=== PATIENT | male | born 1940 | race Caucasian/White ===

== ENCOUNTER 2023-08-29 19:14 | Inpatient (IN) | payer OTHER, SELFPAY ==
[2023-08-29] VITALS (11 sets, daily range): BP systolic 116–165; BP diastolic 49–147; BMI 29.2
[2023-08-29 14:17] LABS: COVID-19 Antigen Negative (Negative)
--- NOTE | 2023-08-29 15:23 | ED.GENMED ---
History of Present Illness
General
Chief Complaint: Weakness
Source: spouse and family
Exam Limitations: none
Time Seen by Provider: 08/29/23 15:03
Nursing documentation reviewed up to this point in time: agreed with
Travel History
Have you had any contact with someone who has COVID-19?: No
Do you have any symptoms of coronavirus? Fever > 100 degrees, chills, cough, shortness of breath, sore throat, loss of taste or smell, muscle aches, or headache?: No
History of Present Illness
History of Present Illness:
Patient to ED with increasing weakness, fluid retention, decreased urine output, SOB. According to family he had a shoulder replacement surgery on 07/09, He was sent to rehab where he had a fall and hit his head. Family states the next day when
they visited he was slurring his words. [facility] and [facility] with [facility]. He was eventually transferred to [place] and then home. Family states he continues to weaken and retain fluid. reports little to no urine output. Deny fever/chills, recent
illness. No n/v/d. Poor appetite. Pulse ox 88%RA on arrival. Placed on 2L NC and pulse ox improved to 97%.
Past History
Past History
ED Past Medical History: CAD, HTN, Hypercholesterolemia and NIDDM
ED Past Surgical History: Cardiac (Loop recorder.) and Orthopedic (Shoulder surgery 07/09)
Social History
Tobacco: Former smoker
Personal:
Living: with family
Family History
Family History: Other (Noncontributory)
Review of Systems
Review of Systems
Allergies reviewed?: Yes
All Other Systems: ROS reviewed and negative except as documented in HPI and ROS
Constitutional: Reports fatigue
EENT: Reports no symptoms
Respiratory: Reports trouble breathing
Cardiac: Reports no symptoms
ABD/GI: Reports no symptoms
: Reports other (decreased urine output)
Musculoskeletal: Reports edema (+3 BLE)
Skin: Reports no symptoms
Neurological: Reports weakness
Psychiatric: Reports no symptoms
Phy Exam
General Physical Exam
General Presentation: mild distress
General age: appears stated age
General Skin: warm and dry
General Habitus: normal
General Mental: alert
Cardiovascular Exam
Cardiovascular Exam: regular rate/rhythm
Pulmonary Exam
Pulmonary Exam: decreased breath sounds
Oxygen Status: oxygen 2 liters via NC
Breath Sounds: Crackles: left lower and right lower
Gastrointestinal Exam
Gastrointestinal Exam: normal bowel sounds, non tender, soft and no organomegaly
Musculoskeletal Exam
Musculoskeletal Exam: full ROM and neuro vasc intact
Skin Exam
Skin Exam: normal color, warm/dry and no rash
Psychiatric Exam
Psychiatric Exam: normal mood/affect
Scores
Heart Failure Risk
Heart Failure Risk Score: Yes
History of Stroke or TIA: Yes
History of intubation for respiratory distress: No
Heart rate on ED arrival >/= 110: No
SaO2 <90% on arrival on room air: Yes
HR >/=110 during 3min walk test (or too ill to perform test): Yes
ECG has acute ischemic changes: Yes
Urea >/=12mmol/L (BUN 33.6mg/dL): No
Serum CO2>/=35mmol/L: No
Troponin I or T elevated to [place] Level (0.4mg/dL): No
NT-proBNP >/=5,000ng/L (5,000pg/ml): Yes
HF Risk Score: 7
Admission Status: VERY HIGH RISK 69.8% Consider admission to hospital
Course
Orders/Labs/Results
Orders:
Orders
08/29/23 13:23
Electrocardiogram (*1) Urgent
Reason for Study: Fatigue / Weakness
EKG- Treatment ONCE
08/29/23 13:42
COVID-19 Antigen Urgent
Source: Nasal Swab
Influenza A+B Rapid Molecular Urgent
TA Source: Nasal Swab
Specimen Description:
08/29/23 Dinner
1800 calorie (15 carb) Diabetic
Diabetic Diet: Sodium, 2 Gram
08/29/23 15:18
Bladder Scan- Treatment ONCE
08/29/23 15:22
CR Chest - 2 Views Urgent
Comment:
Reason For Exam: SOB
08/29/23 15:58
Complete Blood Count/With Diff Urgent
Comprehensive Metabolic Panel Urgent
NT-proBNP Urgent
Troponin I Urgent
08/29/23 18:16
Furosemide [Lasix] 60 mg IV NOW STA
08/29/23 18:26
Admit/Transfer Patient As Directed
Co-Sign Provider:
Level of Care: Inpatient admission
Assign to:: Telemetry
Physician / Group: Scot Gifford
Diagnosis: HF exacerbation
Reason for Telemetry: Arrhythmia
Date to Stop Telemetry: 09/01/23
Time to Stop Telemetry: 11:00
Reason for Hospitalization: HF exacerbation
Expected length of stay greater than two midnights?: Yes
ELOS- Estimated Length of Stay in days: 2
I certify the patient meets the requirements for IP care: Yes
08/29/23 18:27
Code Status As Directed
Resuscitation Status: Full Code
08/29/23 19:04
Urinalysis Reflex To Culture Urgent
Date Specimen was Collected: 08/29/23
Time Specimen was Collected: 19:03
08/29/23 19:26
Acetaminophen [Tylenol] 650 mg PO Q4HPRN PRN
Dextrose 50%-Water [Dextrose 50% Syringe] 12.5 grams IV [id number] PRN
Glucagon [GlucaGen] 1 mg IM PRN PRN
08/29/23 19:26
Consult Nephrology [NEPHROLOGY CONSULT] Routine
Consulting Provider: Melissa Rogel
Was physician already notified: Yes
Reason for consult: CKD, HF
UA Reflex to Culture [Urinalysis Reflex To Culture] Routine
Activity As Directed
Activity Level: With Assistance
Bedside Glucose Monitoring As Directed
Frequency: AC&HS
Comment: Change to q6h if pt on TPN, tube feeding or not eating
Bladder Scan As Directed
Follow Bladder Retention/Intermittent Cath Algorithm?: Yes
PRN if no void in __ hours: 6
Frequency: Per Retention Algorithm
If Bladder Scan Result >: 400
then:: Straight cath
Straight Cath As Directed
Frequency: Per Retention Algorithm
Additional Instructions: straight cath as needed per acute urinary retention algorithm for 24 hrs
Additional Instructions: for bladder scan greater than 400 mL
Vital Signs As Directed
Frequency: Per unit guidelines
Ot Eval And Treat Routine
Pt Eval And Treat Routine
Activity Level: With Assistance
08/29/23 20:00
Docusate Sodium [Colace] 100 mg PO BID
Rivaroxaban [Xarelto] 2.5 mg PO BID
08/29/23 22:00
Famotidine [Pepcid] 20 mg PO HS
Mexiletine [Mexitil] 150 mg PO TID
insulin glargine [Lantus Solostar U-100 Insulin] 10 unit SC HS
08/30/23 06:00
Basic Metabolic Panel IN AM
Complete Blood Count/No Diff IN AM
Glycohemoglobin (HgbA1c) IN AM
08/30/23 07:00
Levothyroxine [Synthroid] 200 mcg PO DAILY AT 0700
Levothyroxine [Synthroid] 50 mcg PO DAILY@0700
08/30/23 07:30
Insulin Aspart Corrective Low [Novolog Flexpen-Low Resistance] See Protocol SC AC
08/30/23 08:00
Ascorbic Acid [Vitamin C] 500 mg PO DAILY
Aspirin Low Dose EC [Aspir Low (Enteric Coated)] 81 mg PO DAILY
Atorvastatin [Lipitor] 40 mg PO DAILY
Bisoprolol Fumarate [Zebeta] 7.5 mg PO DAILY
Ergocalciferol [Drisdol (Vitamin D2)] 50,000 units PO FR
FA/Cyanocobalamin/Pyridoxine [Foltx] 1 tablet PO DAILY
Finasteride [Proscar] 5 mg PO DAILY
Furosemide [Lasix] 40 mg IV DAILY
Multivitamin [Theragran] 1 tablet PO DAILY
Tamsulosin [Flomax] 0.8 mg PO DAILY
09/01/23 11:00
DC Protocol for Telemetry ONCE
Abnormal Lab Results
08/29/23
15:58
RBC 2.95 L 10^6/uL
(4.70-6.10)
Hgb 9.5 L g/dL
(13.0-18.0)
Hct 31.5 L %
(39.0-52.0)
MCV 106.8 H fL
(80.0-94.0)
MCH 32.2 H pg
(27.0-31.0)
MCHC 30.2 L g/dL
(33.0-37.0)
RDW 15.9 H %
(11.5-14.5)
Absolute Lymphs (auto) 0.5 L 10^3/uL
(1.2-3.4)
Neutrophils % 81.6 H %
(42.2-75.2)
Lymphocytes % 9.2 L %
(20.5-51.1)
BUN 24 H mg/dl
(9-20)
Creatinine 1.6 H mg/dL
(0.7-1.3)
Glucose 183 H mg/dl
(70-99)
Alkaline Phosphatase 145 H U/L
(38-126)
Troponin I 0.039 H* ng/ml
Total Protein 5.8 L g/dl
(6.3-8.2)
Albumin 3.0 L g/dl
(3.5-5.0)
08/29/23 15:58
08/29/23 15:58
Vital Signs
Initial and Last Documented VS:
Initial Vital Signs
Temp Pulse Resp BP Pulse Ox
97.4 F 100 16 139/65 98
08/29/23 13:18 08/29/23 13:18 08/29/23 13:18 08/29/23 13:18 08/29/23 13:18
Last Documented Vital Signs
Temp Pulse Resp BP Pulse Ox
97.4 F 90 16 118/53 89
08/29/23 13:18 08/29/23 20:30 08/29/23 13:18 08/29/23 20:00 08/29/23 20:15
*Radiology
Radiology exam reviewed: radiology read reviewed
*Pulse Oximetry
Patient hypoxic: yes
*Critical Care Note
Total Time (30-74mins, 75-104mins- exclusive of procedures): Not Applicable
ED Attending Note
-
Portions of this chart may have been created with voice recognition software.� Occasional wrong word or��sound alike� substitutions may have occurred due to the inherent limitations of voice recognition software.
Discharge Plan
Departure
Patient Disposition: Admit
Date of Disposition: 08/29/23
Time of Disposition: 18:15
Presentation/result/management discussed w/ accepting MD/DO: Hospitalist
Condition: Fair
Covid-19: Not Applicable
Discharge Problem:
CHF (congestive heart failure)
Interventions
Interventions:
*Risk Screen - Suicide Last Done: 08/29/23 15:34
*General Assessment Last Done: 08/29/23 15:34
*Neglect/Abuse Screening Last Done: 08/29/23 15:34
ED- Fall Risk Assessment Last Done: 08/29/23 15:34
*ED COVID-19 Vaccine History Last Done: 08/29/23 13:18
ED- Cardiac Assessment Last Done: 08/29/23 15:34
ED- Neurological Assessment Last Done: 08/29/23 15:34
ED- Pulmonary Assessment Last Done: 08/29/23 15:34
[2023-08-29 16:16] LABS: % Basophils 0.3 % (0-2); % Eosinophils 0.3 % (0-6); % Immature Granulocytes 0.5 % (0-0.5); % Lymphocytes 9.2 % (20.5-51.1); % Monocytes 8.1 % (1.7-9.3); % Neutrophils 81.6 % (42.2-75.2); Absolute Lymphocytes 0.5 10^3/uL (1.2-3.4); Absolute Monocytes 0.5 10^3/uL (0.1-0.6); Absolute Neutrophils 4.8 10^3/uL (1.4-6.5); Hematocrit 31.5 % (39.0-52.0); Hemoglobin 9.5 g/dL (13.0-18.0); Mean Corp Hgb Conc. 30.2 g/dL (33.0-37.0); Mean Corpuscular Hgb 32.2 pg (27.0-31.0); Mean Corpuscular Volume 106.8 fL (80.0-94.0); Nucleated Red Blood Cells % 0 % (-); Platelet Count 194 10^3/uL (130-400); Red Blood Cell Count 2.95 10^6/uL (4.70-6.10); Red Cell Dist. Width 15.9 % (11.5-14.5); White Blood Cell Count 5.9 10^3/uL (4.8-10.8)
[2023-08-29 16:32] LABS: ALT (SGPT) 39 U/L (0-50); AST (SGOT) 38 U/L (17-59); Alkaline Phosphatase 145 U/L (38-126); Blood Urea Nitrogen 24 mg/dl (9-20); Calcium 8.4 mg/dl (8.4-10.2); Carbon Dioxide 28 mmol/L (22-30); Chloride 102 mmol/L (98-107); Glucose 183 mg/dl (70-99); Potassium 3.9 mmol/L (3.5-5.1); Sodium 137 mmol/L (135-145); Total Bilirubin 0.9 mg/dl (0.2-1.3); Total Protein 5.8 g/dl (6.3-8.2); eGFR 42.22
[2023-08-29 16:44] LABS: NT-proBNP 12500 pg/ml; Troponin I 0.039 ng/ml
--- NOTE | 2023-08-29 18:49 | HPS.HSE ---
Family Physician
-
Family Physician: Fernando Wiley
Chief Complaint
-
Shortness of breath
History of Present Illness
Patient is 83-year-old male with past medical history of HFmrEF, insulin-dependent diabetes mellitus, paroxysmal A-fib, history of left shoulder replacement, recent mechanical fall at rehab and subacute CVA, hyperlipidemia, BPH, hypothyroidism was
brought to ER for having new onset of shortness of breath and volume retention. Patient had unfortunately a complex medical course in the last 2 months. Patient had left [facility] in July 05 and was discharged to [facility]. Patient had
mechanical fall causing head injury requiring transferred to [facility]. Found to have small CVA and was discharged back to rehab and eventually to home. Patient been having persistent difficulty with ambulation. Yesterday patient ' almost
fell ' and was caught by family. Family noticed patient is getting short of breath and start retaining fluid. Have both lower extremity swelling. [facility] [place] and has not been on any diuretics due to concern of medication ' too
strong' for kidneys. Patient does have chronic kidney disease, although patient has not been seen by any reinforcement maker. Patient did not have any significant chest pain/palpitation/productive cough/fever episode.
Patient have episodic difficulty voiding. Does not require any straight catheterization.
Medical History
Past Medical History
Past Medical History: Reports Other
Additional Past Medical History:
HFmrEF, insulin-dependent diabetes mellitus, paroxysmal A-fib, history of left shoulder replacement, recent mechanical fall at rehab and subacute CVA, hyperlipidemia, BPH, hypothyroidism
Past Surgical History: Reports Other
Social History
Tobacco: Non-smoker
Alcohol: None
Drug: None
Personal:
Living: With Family
Family History
Family History: Not pertinent
Allergies / Home Medications
Allergies reflects when Allergies were last updated in [employer].
Home Medications with original date entered in [employer]
Allergy/Medication List:
Allergies
Allergy/AdvReac Type Severity Reaction Status Date / Time
SYDNI Inhibitors Allergy Unknown Verified 08/29/23 13:21
Home Medications
ascorbic acid (vitamin C) 500 mg tablet (Vitamin C) 500 mg PO DAILY supplement #30 tabs 08/09/23
aspirin 81 mg tablet,delayed release 81 mg PO DAILY Blood clot prevention/tx #30 tabs 08/09/23
atorvastatin 40 mg tablet 40 mg PO DAILY High cholesterol #30 tabs 08/09/23
bisoprolol fumarate 5 mg tablet 7.5 mg PO DAILY Blood pressure #30 tabs 08/09/23
docusate sodium 100 mg capsule 100 mg PO BID Constipation #60 caps 08/09/23
famotidine 20 mg tablet 20 mg PO HS gerd #30 tabs 08/09/23
finasteride 5 mg tablet 5 mg PO DAILY bph #30 tabs 08/09/23
folic acid-vit B6-vit B12 2.5 mg-25 mg-2 mg tablet (WesTab Max) 1 tab PO DAILY supplement #30 tabs 08/09/23
levothyroxine 200 mcg tablet 200 mcg PO DAILY AT 0700 hypothyroid #30 tabs 08/09/23
levothyroxine 50 mcg tablet 50 mcg PO DAILY@0700 #30 tabs 08/09/23
mexiletine 150 mg capsule 150 mg PO TID supplement #90 caps 08/09/23
multivitamin with folic acid 400 mcg tablet (Tab-A-Laurie) 1 tab PO DAILY supplement #30 tabs 08/09/23
rivaroxaban 2.5 mg tablet (Xarelto) 2.5 mg PO BID #60 tabs 08/09/23
tamsulosin 0.4 mg capsule 0.8 mg PO DAILY bph #30 caps 08/09/23
clotrimazole 1 % topical cream (Athlete's Foot (clotrimazole)) 1 applic topical BID groin/bed sore 08/29/23
ergocalciferol (vitamin D2) 1,250 mcg (50,000 unit) capsule 1,250 mcg PO FR supplement 08/29/23
insulin glargine 100 unit/mL (3 mL) subcutaneous pen (Lantus Solostar U-100 Insulin) 8 - 10 unit SC HS 08/29/23
Review of Systems
-
A 12 point ROS was completed and negative except as noted: Yes
Physical Exam
Vital Signs
Vital Signs
Temp Pulse Resp BP Pulse Ox
97.4 F 77 16 116/60 90
08/29/23 13:18 08/29/23 17:45 08/29/23 13:18 08/29/23 17:00 08/29/23 16:45
Physical Exam
General: Comfortable and Conversant
HEENT: Atraumatic; No Oxygen
Respiratory: Crackles (Both lung oliveira) and Non Labored Respirations
Cardiac: S1/S2 and Regular Rhythm; No Tachycardia
GI: Soft, Non Tender and Non Distended
Musculoskeletal: No Clubbing, No Cyanosis, Edema, Left Lower Extremity and Edema, Right Lower Extremity
Skin: Warm and Dry; No Rash
Neuro: Awake, Alert, Oriented and Nonfocal/grossly intact
Psych: Calm
Laboratory Results
-
08/29/23 15:58
08/29/23 15:58
Laboratory Results
Total Bilirubin 0.9 mg/dl (0.2-1.3) 08/29/23 15:58
AST 38 U/L (17-59) 08/29/23 15:58
ALT 39 U/L (0-50) 08/29/23 15:58
Alkaline Phosphatase 145 U/L (38-126) H 08/29/23 15:58
Troponin I 0.039 ng/ml H* 08/29/23 15:58
Data Reviewed
-
Diagnostic Radiology: Image Personally Visualized and interpreted, Discussed with Patient and Discussed with Family
Lab Data: Labs Reviewed by me, Discussed with Patient and Discussed with Family
Impression/Plan
-
1. Acute on Chronic HF mr EF
-Last echocardiogram in system showing EF of 41% in Jan 25
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
-Elevated proBNP ~ 12k
-Chest x-ray showing congestion/pulmonary edema, official read pending
-Crackles on lung examination
-Got IV Lasix 60 mg in ER, continue on 40 mg daily
-Follow weight and creatinine
2. insulin-dependent diabetes mellitus
-Maintain on Lantus and insulin sliding scale
3. paroxysmal A-fib
History of ventricular arrhythmia?
-Patient on mexiletine therapy continue
-Also on Xarelto 2.5 mg twice daily -presumably DVT prophylaxis dose, continue
-Patient high risk for fall and bleed risk
4. BPH
-Maintain on finasteride and tamsulosin
-Bladder scan and straight cath protocol ordered
5. CKDIIIB
-Baseline creatinine anywhere between 1.5-1.8
-Have not seen previous nephrology in the past
6. Troponin elevation
-minimal, repeat check ordered
history of left shoulder replacement,
recent mechanical fall at rehab
subacute CVA
hyperlipidemia
hypothyroidism
DVT PPX - xarelto
Full code
Total time spent : 80 mins
I personally saw and examined the patient.
I have reviewed all diagnostic interpretations and treatment plans as written.
Time includes patient management by me, time spent at the patients bedside, time to review lab and imaging results, discussing patient care, documentation in the medical record, and time spent with the family or caregiver and discussing care plan
with RN/Consultants.
[2023-08-29] MEDS: LASIX 60 MG IV (18:51)
[2023-08-29 19:12] LABS: Urine Albumin Trace (Neg - Trace); Urine Bilirubin Negative (Negative); Urine Character Clear (Clear); Urine Color Yellow; Urine Glucose Negative (Negative); Urine Ketone Negative (Negative); Urine Leukocyte Negative (Negative); Urine Nitrite Negative (Negative); Urine Occult Blood Negative (Negative); Urine Urobilinogen Negative (Neg - 1+)
[2023-08-29] MEDS: LANTUS 0.100000000000000006 UNITS SC (22:30)
[2023-08-29] MEDS: PEPCID 20 MG PO (22:30)
[2023-08-29] MEDS: XARELTO 2.5 MG PO (22:31)
[2023-08-29] MEDS: MEXITIL 150 MG PO (22:31)
[2023-08-29] MEDS: COLACE 100 MG PO (22:31)
[2023-08-29 22:44] LABS: Glucose - Point of Care 204 mg/dl (70-99)
[2023-08-30] VITALS (12 sets, daily range): BP systolic 92–156; BP diastolic 43–81; BMI 28.7; BMI 32.1
[2023-08-30 04:29] LABS: Hematocrit 28.7 % (39.0-52.0); Hemoglobin 9.1 g/dL (13.0-18.0); Mean Corp Hgb Conc. 31.7 g/dL (33.0-37.0); Mean Corpuscular Hgb 32.2 pg (27.0-31.0); Mean Corpuscular Volume 101.4 fL (80.0-94.0); Mean Platelet Volume 9.8 fL (7.4-10.4); Platelet Count 189 10^3/uL (130-400); Red Blood Cell Count 2.83 10^6/uL (4.70-6.10); Red Cell Dist. Width 15.8 % (11.5-14.5); White Blood Cell Count 5.2 10^3/uL (4.8-10.8)
[2023-08-30 04:59] LABS: Blood Urea Nitrogen 22 mg/dl (9-20); Calcium 7.6 mg/dl (8.4-10.2); Carbon Dioxide 28 mmol/L (22-30); Chloride 102 mmol/L (98-107); Estimated Creatinine Clearance 38 ml/min; Glucose 161 mg/dl (70-99); Potassium 3.5 mmol/L (3.5-5.1); Sodium 139 mmol/L (135-145); eGFR 49.56
[2023-08-30] MEDS: SYNTHROID 50 MCG PO (06:29)
[2023-08-30] MEDS: SYNTHROID 200 MCG PO (06:29)
[2023-08-30 07:41] LABS: Glucose - Point of Care 167 mg/dl (70-99)
[2023-08-30] MEDS: PROSCAR 5 MG PO (07:43)
[2023-08-30] MEDS: FLOMAX 0.800000000000000044 MG PO (07:43)
[2023-08-30] MEDS: LASIX 40 MG IV (07:43)
[2023-08-30] MEDS: THERAGRAN 1 TABLET PO (07:43)
[2023-08-30] MEDS: ASPIR LOW (ENTERIC COATED) 81 MG PO (07:43)
[2023-08-30] MEDS: DRISDOL (VITAMIN D2) 50000 UNITS PO (07:44)
[2023-08-30] MEDS: FOLTX 1 TABLET PO (07:44)
[2023-08-30] MEDS: COLACE 100 MG PO ×2 (07:44→20:31)
[2023-08-30] MEDS: NOVOLOG FLEXPEN-LOW RESISTANCE 1 UNITS SC ×3 (07:44→16:50)
[2023-08-30] MEDS: XARELTO 2.5 MG PO ×2 (07:44→20:31)
[2023-08-30] MEDS: VITAMIN C 500 MG PO (07:45)
[2023-08-30] MEDS: ZEBETA 7.5 MG PO (07:45)
--- NOTE | 2023-08-30 08:38 | W.PN.HOSP.TC ---
Today's Communication/Plan
-
Continue diuresis
Watch creatinine
Follow daily weights
Iron studies
Unclear why patient is only on Xarelto 2.5 twice daily
Need to get records from outpatient merry go round attendant
Consult cards
reepeat trop
Assessment / Plan
Assessment / Plan
83 y/o male with shortness of breath. Complex medical course in the last 2 months. Patient had a shoulder replacement surgery on 07/09/2023 and was sent to rehab where he had a fall and hit his head. He was sent to [facility] where he was
diagnosed with a CVA and transferred to [facility]. Eventually he was discharged home. He was feeling weak and decreased urine output and shortness of breath therefore brought in to [facility].
Patient is not a good historian
On examination not in distress
On oxygen
Cardiovascular system S1-S2 regular
Chest decreased breath sounds at bases
Few rales
Soft nontender
Bilateral pedal edema noted
# Acute on chronic heart failure with reduced ejection fraction
Echo January 2023 with EF 41%
Patient not on any Lasix as outpatient
Primary merry go round attendant is at [place]
Elevated proBNP noted
Continue IV Lasix
Daily weights/intake output charting
# Elevated troponin
#ASCVD-ASA,Statin
History of cardiac stents history of lower extremity
# Paroxysmal atrial fibrillation
On Xarelto as outpatient
Dose of Xarelto was only 2.5 twice daily which is a DVT prophylaxis dose.
Not sure why he is not on a treatment dose
On bisoprolol 7.5 mg daily
Mexiletine
#Long QTC
#Insulin-dependent diabetes
On Lantus and sliding scale coverage
Lantus 8 to 10 units at nighttime at home
# Enlarged prostate
Finasteride and tamsulosin
# CKD stage III
Has not seen nephrology in the past
# History of left reverse shoulder replacement July 2023
# CVA-aspirin and statin
Loop recorder implanted on July 16
# Hyperlipidemia/Atherosclerosis-statin
# Hypothyroidism-Synthroid 250 mcg daily
# Anemia-Iron studies
# Fall in Jul 2023
# History of bladder cancer
# History of peripheral vascular disease
Per previous notes carotid ultrasound August 2022 minimal right carotid stenosis and moderate left carotid stenosis.-This has been monitored for years.
Right carotid endarterectomy.
History of lower extremity stents-Details unclear
# Ex-smoker
# DVT prophylaxis-Xarelto
# Full code
Discussed with nursing at bedside
Called patient's and left a message, son has same number listed.
Anticipated Discharge: > 48 hours
Subjective/Interval History
-
Date of Service: August 30, 2023
Objective Data
-
Labs:
Laboratory Results
08/30/23
04:17
WBC 5.2
Hgb 9.1 L
Hct 28.7 L
Plt Count 189
Sodium 139
Potassium 3.5
Chloride 102
Carbon Dioxide 28
BUN 22 H
Creatinine 1.4 H
Glucose 161 H
Calcium 7.6 L
Vital Signs:
Vital Signs
Temp Pulse Resp BP Pulse Ox
97.7 F 80 16 128/68 98
08/30/23 07:57 08/30/23 07:45 08/29/23 13:18 08/30/23 07:45 08/30/23 07:45
I&O
08/29/23 08/30/23 08/31/23
06:59 06:59 06:59
Output Total 1849
Balance -185 / -1849
[2023-08-30] MEDS: MEXITIL 150 MG PO ×3 (09:58→21:55)
[2023-08-30] MEDS: LIPITOR 40 MG PO (09:58)
--- NOTE | 2023-08-30 10:25 | PTOTSP ---
Speech Language Pathology
Pt seen for clinical bedside swallow evaluation. Dentures present at bedside, but pt stated they will not fit without denture adhesive, which was not in room. When pt discharged from speech at [place] on 08/08, he was on regular solids/thin liquids.
RN spoke with on phone who reported that she can bring in denture adhesive, but he doesn't need the dentures since he can only have 'mushy' things. Unsure where this recommendation came from.
P.O. trials of puree and thin liquids provided. Adequate oral phase with puree. Pt consistently taking consecutive sips of thin liquids. Cough noted x2 with consecutive sips. Verbal cueing provided for single sips, which he tolerated without
overt signs of aspiration.
Recommend:
(1) IDDSI Level 4 (Puree) with thin liquids given report and no denture adhesive currently available
(2) Aspiration precautions: sit upright, slow rate, single sips only (will require verbal cueing at least intermittently), take break if SOB
(3) Meds whole in puree
(4) SHIFT NURSE MANAGER to continue to follow
[2023-08-30 10:29] LABS: Vitamin D, 25-OH*** 30.6 ng/mL (30-80)
[2023-08-30 10:32] LABS: Iron 41 ug/dl (49-181)
[2023-08-30 10:41] LABS: Percent Saturation 16 % (20-50); Total Iron Binding Capacity 245 ug/dl (261-462)
[2023-08-30 10:47] LABS: Ferritin 72.8 ng/ml (17.9-464.0)
--- NOTE | 2023-08-30 11:06 | CON.CAR ---
Addendum entered and electronically signed by Len Goncalves MD 08/30/23 16:03:
I saw and examined the patient.
The DIRECT CARE WORKER or PA's note was reviewed and I agree with the note.
Comment: General: Awake and possibly confused
Neck: Supple, no JVD, HJR, carotids +2 B/L, no bruits bilaterally.
Heart: Non displaced PMI, RRR, no murmurs, No S3, S4, no rubs.
Lungs: Scattered rhonchi
Abdomen: Normal bowel sounds, soft, non-tender, non-distended.
Extremities: No clubbing, cyanosis or edema bilaterally.
Neuro: Awake and possibly confused
Messi with a history of chronic systolic CHF, CAD, PVD, renal artery stenosis, carotid stenosis, hypertension, diabetes, renal sufficiency. He presented with worsening dyspnea on exertion. He had a recent fall subacute CVA with statin loss. He had
a Linq monitor placed at that time. His care is done at [facility]. Cardiology was consulted for acute systolic CHF.
Treatment IV Lasix and assess response. Try to get records from [facility].
Original Note:
Consultation
Consultation Request
Date/Time Consultation Requested: 08/30/2023 at 0900
Date/Time Consultation Performed: 08/30/2023 at 1015
Requesting Provider: Dr. Moses
Performing Provider: Dr. Goncalves
Reason for Consultation: CHF
Medical History
-
History of Present Illness:
HPI: Garret is an 83-year-old male with past medical history of chronic HFrEF, CAD, PVD, renal artery stenosis, carotid stenosis, hypertension, hyperlipidemia, type 2 diabetes, CKD, hypothyroidism, and bladder cancer who presented to ER for
evaluation of worsening shortness of breath. He had a recent fall and subacute CVA and had a rehab stay at [facility] earlier this month. He has since returned home and has been having difficulty with ambulation. He also has had weight gain and
increased edema. Family was concerned that he was retaining fluid and brought him in for evaluation. On arrival to the ER, he was hypoxic and was placed on supplemental oxygen. He was found to have evidence of acute heart failure on chest x-ray
with severe pulmonary edema and small bilateral pleural effusions. ProBNP elevated at 12,500. He was started on IV Lasix and cardiology was consulted for evaluation. He is resting comfortably in bed this morning with no acute complaints.
PMH:
CVA
Paroxysmal atrial fibrillation
Chronic HFrEF
CAD
s/p Roto KAREN LCX (4 x12 mm Promus) & LAD KAREN 06/2014 (3.5 x 12 mm Promus)
s/p LAD Roto KAREN� (3.5 x 15 mm [place] KAREN) 01/20
Ventricular bigeminy/PAT maintained on mexiletine
PVD
s/p iliac prosper stents 01/2007
s/p R&L EIA stents 08/2021
Renal artery stenosis
�s/p right renal artery stent 01/2007
Carotid stenosis
s/p Rt CEA 08/2017
Hypertension
Hyperlipidemia
Type 2 diabetes
Chronic renal insufficiency
Cataract extraction
Hypothyroidism
Bladder cancer
Cystoscopy, transurethral resection of bladder tumor, placement of 6 x 24 double-J stent, retrograde pyelogram 09/2018
Past Medical History
Past Medical History: Other (In HPI)
Past Surgical History: Cardiac (Roto KAREN LCX & LAD KAREN 06/2014, LAD Roto KAREN 01/20), Urological (Cystoscopy, transurethral resection of bladder tumor, placement of 6 x 24 double-J stent, retrograde pyelogram 09/2018) and Other (PVD w/ iliac prosper stents
01/2007, R&L EIA stents 08/2021, renal artery stent 01/2007, Rt CEA 08/2017, cataract surgery)
Social History
Tobacco: Former Smoker
Alcohol: Occasional
Drug: None
Employment: Retired
Family History
Family History: CAD
Allergies / Home Medications
Allergy/AdvReac Type Severity Reaction Status Date / Time
SYDNI Inhibitors Allergy Unknown Verified 08/29/23 13:21
Medication Instructions Recorded Confirmed Type
ascorbic acid (vitamin C) 500 mg 500 mg PO DAILY supplement #30 tabs 08/09/23 08/29/23 Rx
tablet (Vitamin C)
aspirin 81 mg tablet,delayed 81 mg PO DAILY Blood clot 08/09/23 08/29/23 Rx
release prevention/tx #30 tabs
atorvastatin 40 mg tablet 40 mg PO DAILY High cholesterol 08/09/23 08/29/23 Rx
#30 tabs
bisoprolol fumarate 5 mg tablet 7.5 mg PO DAILY Blood pressure #30 08/09/23 08/29/23 Rx
tabs
docusate sodium 100 mg capsule 100 mg PO BID Constipation #60 caps 08/09/23 08/29/23 Rx
famotidine 20 mg tablet 20 mg PO HS gerd #30 tabs 08/09/23 08/29/23 Rx
finasteride 5 mg tablet 5 mg PO DAILY bph #30 tabs 08/09/23 08/29/23 Rx
folic acid-vit B6-vit B12 2.5 1 tab PO DAILY supplement #30 tabs 08/09/23 08/29/23 Rx
mg-25 mg-2 mg tablet (WesTab Max)
levothyroxine 200 mcg tablet 200 mcg PO DAILY AT 0700 08/09/23 08/29/23 Rx
hypothyroid #30 tabs
levothyroxine 50 mcg tablet 50 mcg PO DAILY@0700 #30 tabs 08/09/23 08/29/23 Rx
mexiletine 150 mg capsule 150 mg PO TID supplement #90 caps 08/09/23 08/29/23 Rx
multivitamin with folic acid 400 1 tab PO DAILY supplement #30 tabs 08/09/23 08/29/23 Rx
mcg tablet (Tab-A-Laurie)
rivaroxaban 2.5 mg tablet (Xarelto) 2.5 mg PO BID #60 tabs 08/09/23 08/29/23 Rx
tamsulosin 0.4 mg capsule 0.8 mg PO DAILY bph #30 caps 08/09/23 08/29/23 Rx
clotrimazole 1 % topical cream 1 applic topical BID groin/bed sore 08/29/23 08/29/23 History
(Athlete's Foot (clotrimazole))
ergocalciferol (vitamin D2) 1,250 1,250 mcg PO FR supplement 08/29/23 08/29/23 History
mcg (50,000 unit) capsule
insulin glargine 100 unit/mL (3 8 - 10 unit SC HS Diabetes 08/29/23 08/29/23 History
mL) subcutaneous pen (Lantus
Solostar U-100 Insulin)
Review of Systems
-
History Source: Patient
All other systems: Negative unless noted
Physical Exam
Vital Signs
Temp Pulse Resp BP Pulse Ox
97.7 F 80 16 128/68 98
08/30/23 07:57 08/30/23 07:45 08/29/23 13:18 08/30/23 07:45 08/30/23 07:45
Lab Results
08/30/23 04:17
08/30/23 04:17
Troponin I Cancelled 08/30/23 10:05
Oqs-I-Qeljmxuqlrk Pept 28603 pg/ml 08/29/23 15:58
Physical Exam
General: Well Developed, Well Nourished and No Apparent Distress
HEENT: Normocephalic, Anicteric and Moist Mucous Membranes
Respiratory: Crackles and Non Labored Respirations
Cardiac: S1/S2 and Regular Rhythm
Musculoskeletal: No Clubbing, No Cyanosis and Edema
Skin: Warm and Dry
Neuro: Nonfocal/Grossly Intact
Psych: Calm
Impression / Plan
-
PCP: Dr. Vallejo
Wire Stretcher Dr. Moore at [facility]
Impression:
Acute on chronic HFrEF
Elevated troponin
Recent CVA
Paroxysmal atrial fibrillation
CAD
s/p Roto KAREN LCX (4 x12 mm Promus) & LAD KAREN 06/2014 (3.5 x 12 mm Promus)
s/p LAD Roto KAREN� (3.5 x 15 mm [place] KAREN) 01/20
Ventricular bigeminy/PAT maintained on mexiletine
PVD
s/p iliac prosper stents 01/2007
s/p R&L EIA stents 08/2021
Renal artery stenosis
�s/p right renal artery stent 01/2007
Carotid stenosis
s/p Rt CEA 08/2017
Hypertension
Hyperlipidemia
Type 2 diabetes
Chronic renal insufficiency
Cataract extraction
Hypothyroidism
Bladder cancer
Cystoscopy, transurethral resection of bladder tumor, placement of 6 x 24 double-J stent, retrograde pyelogram 09/2018
Lexiscan nuclear stress test 01/22/2022: Normal perfusion, EF 52%
Carotid ultrasound 08/28/2022:�JEANNE 1 to 15% stenosis, LICA 50 to 79% stenosis
Echo 01/22/2022: EF 55 to 60%, mild MR, AV sclerosis
Echo 01/14/2023: EF 41%, global hypokinesis, moderate MR, moderate to severe TR, estimated PAP 48 mmHg
Plan:
-Presented with weight gain, shortness of breath, and edema. Found to be in acute heart failure with severe pulmonary edema and small bilateral pleural effusions on chest x-ray with proBNP 12,500.
-Continue diuresis with IV Lasix 40 mg daily. Weight down 2 pounds overnight if accurate. Continue daily weights, I&Os.
-Creat stable at 1.4. Follow with diuresis.
-Known cardiomyopathy with EF 41% 01/14/2023. Continues on bisoprolol. Renal insufficiency and hypotension limit up titration of medical therapy.
-Possible history of paroxysmal atrial fibrillation, however unclear if this has become a definitive diagnosis. Loop monitor implanted following recent CVA.
-He is on Xarelto 2.5 mg twice daily for history of PAD. Given recent CVA and suspected paroxysmal atrial fibrillation, likely would benefit from therapeutic dose Xarelto.
-He does have history of paroxysmal atrial tachycardia noted previously and is maintained on mexiletine.
-Heart rate is stable currently on review of telemetry.
-K 3.5. Will replete.
-Troponin 0.039. Suspect non-VT troponin elevation in the setting of acute heart failure exacerbation. Continue to trend to peak. EKG without any acute ischemic changes.
-Recent stress test 01/30/2022 without ischemia. Continue on baby aspirin and atorvastatin.
-Records requested from primary coal sampler including last office visit and most recent echo.
-On 2 L nasal cannula. Wean O2 as able.
HPI: Garret is an 83-year-old male with past medical history of chronic HFrEF, CAD, PVD, renal artery stenosis, carotid stenosis, hypertension, hyperlipidemia, type 2 diabetes, CKD, hypothyroidism, and bladder cancer who presented to ER for
evaluation of worsening shortness of breath. He had a recent fall and subacute CVA and had a rehab stay at [facility] earlier this month. He has since returned home and has been having difficulty with ambulation. He also has had weight gain and
increased edema. Family was concerned that he was retaining fluid and brought him in for evaluation. On arrival to the ER, he was hypoxic and was placed on supplemental oxygen. He was found to have evidence of acute heart failure on chest x-ray
with severe pulmonary edema and small bilateral pleural effusions. ProBNP elevated at 12,500. He was started on IV Lasix and cardiology was consulted for evaluation. He is resting comfortably in bed this morning with no acute complaints.
Data Reviewed
-
EKG: Tracing Personally Visualized and interpreted
Radiology: Report Reviewed by me
Labs: Labs Reviewed by me
Old Records: Reviewed
--- NOTE | 2023-08-30 11:21 | PTCARENOTE ---
pt wakes to name. oriented to self and place. forgetful. inc or urine at times. nc2l. pt takes oxygen off found 89% on room air.
[2023-08-30 11:27] LABS: Urine Albumin Negative (Neg - Trace); Urine Bilirubin Negative (Negative); Urine Character Clear (Clear); Urine Color Straw; Urine Glucose Negative (Negative); Urine Ketone Negative (Negative); Urine Leukocyte Negative (Negative); Urine Nitrite Negative (Negative); Urine Occult Blood 3+ (Negative); Urine Urobilinogen Negative (Neg - 1+)
[2023-08-30 11:47] LABS: Glucose - Point of Care 196 mg/dl (70-99)
[2023-08-30 11:49] LABS: Urine White Cell 0-2 /HPF (0-5)
[2023-08-30] MEDS: KCL 40 MEQ PO (12:03)
[2023-08-30 13:01] LABS: Troponin I 0.071 ng/ml
--- NOTE | 2023-08-30 13:17 | CON.MD ---
Consultation - Medical
-
Assessment:
HFrEF (EF 40%)
CAD
PVD
CKD Stage 3A/B
EILEEN s/p stent in 2006
Carotid stenosis
T2DM
DLD
Plan:
- Cr baseline hard to discern, likely around 1.5, down to 1.4 this AM
- likely has chronic kidney disease from cardiorenal and diabetes
- agree with diuresis as the patient is volume overloaded, SOB, elevated BNP and CXR consistent with congestion
- Cr downtrending with diuresis, would continue to trend BMPs while actively diuresing
- excellent response to lasix IV 40mg, would likely transition to lasix 20 or 40mg as an outpatient once weights and symptoms stabilize
- will obtain UA, UPCR, KUS (pt had calculi on prior studies)
- please bladder scan as the patient endorsing some symptoms of urinary retention
- will plan for follow up in the outpatient setting
--- NOTE | 2023-08-30 13:19 | PTCARENOTE ---
pt inc of large amt of urine. placed condom cath on pt
[2023-08-30 15:09] LABS: Protein/creatinine Ratio 1.7; Urine Protein 14 mg/dl
--- NOTE | 2023-08-30 15:09 | PTCARENOTE ---
report sent to floor and pt transported to [facility].
--- NOTE | 2023-08-30 15:44 | PTCARENOTE ---
Received patient from ED via bed. AAOx2-3, forgetful. Bed alarm in place. Assessed and oriented to room. Telemetry reading Afib. Call keller in close reach.
[2023-08-30 16:43] LABS: Glucose - Point of Care 182 mg/dl (70-99)
--- NOTE | 2023-08-30 17:57 | W.PN.UPDATE ---
Update Note
Progress Note Update
Spoke to patient's in detail.
Patient had a fall at home and humerus fracture he was taken to [facility] where he had surgery and was sent to [facility]. Inez keller was not reportedly working and patient had a fall there. Next morning he was taken
to [place] where he was found to have a stroke.
Pt follows with Cardiology -Oscar at [facility]
She does not know why the patient is on Xarelto 2.5 mg p.o. twice daily instead of higher dose.
We need to get records from his outpatient topography technician as well as a discharge summary.
I also discussed with the patient's that it is better to keep all his care in 1 system so that there is no gap in medical information which can delay medical care.
[2023-08-30 18:53] LABS: Troponin I 0.062 ng/ml
[2023-08-30 21:52] LABS: Glucose - Point of Care 138 mg/dl (70-99)
[2023-08-30] MEDS: LANTUS 0.100000000000000006 UNITS SC (21:54)
[2023-08-30] MEDS: PEPCID 20 MG PO (21:55)
[2023-08-31] VITALS (8 sets, daily range): BP systolic 103–135; BP diastolic 52–62; PULSE 67–74; O2SAT 92–98; BMI 31.7
[2023-08-31] MEDS: SYNTHROID 50 MCG PO (06:18)
[2023-08-31] MEDS: SYNTHROID 200 MCG PO (06:19)
[2023-08-31 06:47] LABS: Hematocrit 27.7 % (39.0-52.0); Hemoglobin 8.8 g/dL (13.0-18.0); Mean Corp Hgb Conc. 31.8 g/dL (33.0-37.0); Mean Corpuscular Hgb 32.8 pg (27.0-31.0); Mean Corpuscular Volume 103.4 fL (80.0-94.0); Mean Platelet Volume 10.1 fL (7.4-10.4); Platelet Count 210 10^3/uL (130-400); Red Blood Cell Count 2.68 10^6/uL (4.70-6.10); Red Cell Dist. Width 15.5 % (11.5-14.5); White Blood Cell Count 5.7 10^3/uL (4.8-10.8)
[2023-08-31 07:32] LABS: Blood Urea Nitrogen 23 mg/dl (9-20); Calcium 8.1 mg/dl (8.4-10.2); Carbon Dioxide 34 mmol/L (22-30); Chloride 97 mmol/L (98-107); Estimated Creatinine Clearance 30 ml/min; Glucose 42 mg/dl (70-99); Magnesium 2.1 mg/dl (1.6-2.3); Potassium 3.4 mmol/L (3.5-5.1); Sodium 138 mmol/L (135-145); eGFR 39.26
[2023-08-31] MEDS: NOVOLOG FLEXPEN-LOW RESISTANCE SC ×2 (07:40→12:38)
[2023-08-31 07:51] LABS: Glucose - Point of Care 59 mg/dl (70-99)
[2023-08-31 08:10] LABS: Glucose - Point of Care 76 mg/dl (70-99)
--- NOTE | 2023-08-31 08:30 | PTCARENOTE ---
Pt's lab work this am resulted with a blood sugar of 42. Pt asymptomatic. Provided pt with 4 oz fruit juice and rechecked in 15 minutes. Repeat blood sugar via accu check 59, remains asymptomatic, another 4 oz juice provided and breakfast on way,
blood sugar 76 after [address] Moses aware of hyoglycemia, see new orders to decrease Lantus to 5 units, will continue to monitor closely.
[2023-08-31] MEDS: LIPITOR 40 MG PO (08:56)
[2023-08-31] MEDS: XARELTO 2.5 MG PO ×2 (08:56→20:07)
[2023-08-31] MEDS: ASPIR LOW (ENTERIC COATED) 81 MG PO (08:56)
[2023-08-31] MEDS: FEOSOL 325 MG PO (08:56)
[2023-08-31] MEDS: VITAMIN C 500 MG PO (08:56)
[2023-08-31] MEDS: THERAGRAN 1 TABLET PO (08:56)
[2023-08-31] MEDS: PROSCAR 5 MG PO (08:56)
[2023-08-31] MEDS: FLOMAX 0.800000000000000044 MG PO (08:56)
[2023-08-31] MEDS: COLACE 100 MG PO ×2 (08:56→20:07)
[2023-08-31] MEDS: FOLTX 1 TABLET PO (08:57)
[2023-08-31] MEDS: ZEBETA 7.5 MG PO (08:57)
[2023-08-31] MEDS: MEXITIL 150 MG PO ×3 (08:57→22:21)
[2023-08-31] MEDS: FLUSH (NSS) 1 FLUSH IV (08:58)
[2023-08-31] MEDS: LASIX 40 MG IV (09:13)
[2023-08-31 10:15] LABS: Glucose - Point of Care 90 mg/dl (70-99)
[2023-08-31 12:13] LABS: Glucose - Point of Care 63 mg/dl (70-99)
[2023-08-31 12:34] LABS: Glucose - Point of Care 62 mg/dl (70-99)
[2023-08-31 13:00] LABS: Glucose - Point of Care 87 mg/dl (70-99)
[2023-08-31] MEDS: KCL 40 MEQ PO (13:31)
--- NOTE | 2023-08-31 13:40 | W.PN.HOSP.TC ---
Today's Communication/Plan
-
EKG
Continue diuretics
Follow creatinine
Hold Lantus tonight
Assessment / Plan
Assessment / Plan
83 y/o male with shortness of breath. Complex medical course in the last 2 months. Patient had a shoulder replacement surgery on 07/09/2023 and was sent to rehab where he had a fall and hit his head. He was sent to [facility] where he was
diagnosed with a CVA and transferred to [facility] rehab. Eventually he was discharged home. He was feeling weak and decreased urine output and shortness of breath therefore brought in to [facility].
On examination not in distress
On oxygen
Cardiovascular system S1-S2 irregular, systolic murmur apex
Chest decreased breath sounds at bases
Few rales
Soft nontender
Bilateral pedal edema noted-better
# Acute on chronic heart failure with reduced ejection fraction
Echo 01/14/2023-normal LV thickness, EF 41%, global hypokinesis, diastolic function indeterminate. Thickened mitral leaflets. Moderate MR. Moderate to severe TR. Pulmonary artery pressure 48 mmHg.
Patient not on any Lasix as outpatient
Primary field auto appraiser is at [place]
Elevated proBNP noted
Continue IV Lasix
Daily weights/intake output charting
weight better
# Elevated troponin-non NC type
#ASCVD-ASA,Statin
History of cardiac stents LAD and circumflex
# Paroxysmal atrial fibrillation
No mention of atrial fibrillation from the preop note from his outpatient field auto appraiser.
EKG from 07/10/2023-looks like A-fib.
On Xarelto as outpatient
Dose of Xarelto was only 2.5 twice daily which is a vascular dose
On bisoprolol 7.5 mg daily
Loop monitor will be interrogated on Saturday to see if patient has atrial fibrillation if so Xarelto may need to be increased to 50 mg.
#Long QTC
#Insulin-dependent diabetes
On Lantus and sliding scale coverage
Lantus 8 to 10 units at nighttime at home
Sugar is low because of poor p.o. intake and also renal function change.
Hold Lantus tonight and restart at a lower dose tomorrow.
# Enlarged prostate
Finasteride and tamsulosin
# CKD stage III
Has not seen nephrology in the past
# History of left reverse shoulder replacement July 2023
# CVA-aspirin and statin
Loop recorder implanted on July 16
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
# Hyperlipidemia/Atherosclerosis-statin
# Hypothyroidism-Synthroid 250 mcg daily
# Anemia-Iron studies
# Fall in Jul 2023
# History of bladder cancer history of TURBT
# History of peripheral vascular disease
Per previous notes carotid ultrasound August 2022 minimal right carotid stenosis and moderate left carotid stenosis.-This has been monitored for years.
Right carotid endarterectomy.
History of bilateral iliac stents
# History of renal artery stenosis with right renal artery stent
# Ex-smoker
# DVT prophylaxis-Xarelto
# Full code
Cardiology notes reviewed. That does not mention about atrial fibrillation. Also the notes from 07/04/2023 has Bumex 0.5 mg tablet daily which the patient does not seem to be on.
and son confirms dose of Synthroid to be 250 mcg.
Son is not very sure if the patient has A-fib
Spoke to patient's daughter from patient's son's phone, patient's son at bedside and patient's at bedside
Discussed with cardiology
Discussed with nephrology
Discussed with nursing
Discussed with speech
time spent 56 min
Anticipated Discharge: > 48 hours
Subjective/Interval History
-
Date of Service: August 31, 2023
Objective Data
-
Labs:
Laboratory Results
08/31/23
06:16
WBC 5.7
Hgb 8.8 L
Hct 27.7 L
Plt Count 210
Sodium 138
Potassium 3.4 L
Chloride 97 L
Carbon Dioxide 34 H
BUN 23 H
Creatinine 1.7 H
Glucose 42 L*
Calcium 8.1 L
Vital Signs:
Vital Signs
Temp Pulse Resp BP Pulse Ox
98.7 F 75 18 124/54 99
08/31/23 11:28 08/31/23 11:28 08/31/23 11:28 08/31/23 11:28 08/31/23 11:28
I&O
08/30/23 08/31/23 09/01/23
06:59 06:59 06:59
Intake Total 780 / 780
Output Total 1850 / 1850 1000 / 1000
Balance -1850 / -1850 -220 / -220
--- NOTE | 2023-08-31 14:03 | PTOTSP ---
Dysphagia Follow Up
Patient received at bedside this date, reports 'poor appetite.' Dentures in place, but not secure. PO trials of regular solids and thin liquids via straw. No overt s/s of aspiration or penetration observed on all trials this date. Recommend
advancing to regular solids and thin liquids with LOCK ASSEMBLER service to continue to follow.
Recommend:
1. Regular solids (IDDSI 7), thin liquids (IDDSI 0)
2. Medications as tolerated
3. MAKE SURE DENTURES ARE SECURE WITH ADHESIVE
3. Aspiration precautions: sit upright, slow rate, singe sips, take break if SOB
4. LOCK ASSEMBLER to continue to follow
--- NOTE | 2023-08-31 14:09 | W.PN.CARDCBS ---
Today's Communication / Plan
-
Continue IV Lasix and follow renal function closely
Consider increasing Xarelto to therapeutic dose if atrial fibrillation noted on loop monitor or A-fib is confirmed on EKG done in July 2023 at [place]
Get records from stroke admission recently had admission at [place]
Family needs to consolidate care and avoid hybrid care
Impression / Plan
-
PCP: Dr. Vallejo
Data Integration Developer Dr. Moore at [facility]
Impression:
Acute on chronic HFrEF
Non-DC troponin elevation
Recent CVA
Paroxysmal atrial fibrillation noted on ECG in July 2023 ?
Stage IIIb renal insufficiency
CAD
s/p Roto KAREN LCX (4 x12 mm Promus) & LAD KAREN 06/2014 (3.5 x 12 mm Promus)
s/p LAD Roto KAREN� (3.5 x 15 mm [place] KAREN) 01/20
Ventricular bigeminy/PAT maintained on mexiletine
PVD
s/p iliac prosper stents 01/2007
s/p R&L EIA stents 08/2021
Renal artery stenosis
�s/p right renal artery stent 01/2007
Carotid stenosis
s/p Rt CEA 08/2017
Hypertension
Hyperlipidemia
Type 2 diabetes
Hypothyroidism
Bladder cancer
Cystoscopy, transurethral resection of bladder tumor, placement of 6 x 24 double-J stent, retrograde pyelogram 09/2018
Lexiscan nuclear stress test 01/22/2022: Normal perfusion, EF 52%
Carotid ultrasound 08/28/2022:�JEANNE 1 to 15% stenosis, LICA 50 to 79% stenosis
Echo 01/22/2022: EF 55 to 60%, mild MR, AV sclerosis
Echo 01/14/2023: EF 41%, global hypokinesis, moderate MR, moderate to severe TR, estimated PAP 48 mmHg
Plan:
He is a very difficult examination but remains on oxygen
We will continue on Lasix IV for now
Creatinine increased to 1.7 but was 2.1 earlier in August 2023
Continues on bisoprolol. Renal insufficiency and hypotension limit up titration of medical therapy.
Possible history of paroxysmal atrial fibrillation, however unclear if this has become a definitive diagnosis. Loop monitor implanted following recent CVA.
Need to check device
Need to see if echocardiogram was done at the time of stroke recently at [place]
He is on Xarelto 2.5 mg twice daily for history of PAD. Given recent CVA and suspected paroxysmal atrial fibrillation ? would benefit from therapeutic dose Xarelto. ECG from 07/10/2023 may be atrial fibrillation
He does have history of paroxysmal atrial tachycardia noted previously and is maintained on mexiletine.
Reviewed records from [place] office visit which was a preop visit only
Need to get records from recent admission for stroke
Discussed with primary service and nurse
HPI: Garret is an 83-year-old male with past medical history of chronic HFrEF, CAD, PVD, renal artery stenosis, carotid stenosis, hypertension, hyperlipidemia, type 2 diabetes, CKD, hypothyroidism, and bladder cancer who presented to ER for
evaluation of worsening shortness of breath. He had a recent fall and subacute CVA and had a rehab stay at [place] earlier this month. He has since returned home and has been having difficulty with ambulation. He also has had weight gain and
increased edema. Family was concerned that he was retaining fluid and brought him in for evaluation. On arrival to the ER, he was hypoxic and was placed on supplemental oxygen. He was found to have evidence of acute heart failure on chest x-ray
with severe pulmonary edema and small bilateral pleural effusions. ProBNP elevated at 12,500. He was started on IV Lasix and cardiology was consulted for evaluation. He is resting comfortably in bed this morning with no acute complaints.
Progress Note - Data Integration Developer
Subjective
Date of Service: August 31, 2023
No complaints but appears confused
Objective
Labs:
08/31/23 06:16
08/31/23 06:16
Labs
Hgb 8.8 g/dL (13.0-18.0) L 08/31/23 06:16
Hct 27.7 % (39.0-52.0) L 08/31/23 06:16
Plt Count 210 10^3/uL (130-400) 08/31/23 06:16
Sodium 138 mmol/L (135-145) 08/31/23 06:16
Potassium 3.4 mmol/L (3.5-5.1) L 08/31/23 06:16
BUN 23 mg/dl (9-20) H 08/31/23 06:16
Creatinine 1.7 mg/dL (0.7-1.3) H 08/31/23 06:16
Glucose 42 mg/dl (70-99) L* 08/31/23 06:16
Troponins
08/29/23 08/30/23 08/30/23
15:58 10:05 12:19
Troponin I 0.039 H* Cancelled 0.071 H*
08/30/23 08/30/23
15:00 17:57
Troponin I Cancelled 0.062 H*
Vital Signs and I&O:
Vital Signs
Temp Pulse Resp BP Pulse Ox
98.7 F 75 18 124/54 99
08/31/23 11:28 08/31/23 11:28 08/31/23 11:28 08/31/23 11:28 08/31/23 11:28
Vital Signs
Temp Pulse Resp BP Pulse Ox
98.7 F 75 18 124/54 99
08/31/23 11:28 08/31/23 11:28 08/31/23 11:28 08/31/23 11:28 08/31/23 11:28
Intake & Output
08/29/23 08/30/23 08/31/23 09/01/23
06:59 06:59 06:59 06:59
Intake Total 780 / 780
Output Total 1850 / 1850 1000 / 1000
Balance -1850 / -1850 -220 / -220
Physical Exam
Physical Exam
General: Awake but confused
Neck: Supple, no JVD, HJR, carotids +2 B/L, no bruits bilaterally.
Heart: Non displaced PMI, RRR, 2/6 basal systolic murmur, No S3, S4, no rubs.
Lungs: Scattered rhonchi
Extremities: No clubbing, cyanosis or edema bilaterally.
Neuro: Awake but confused.
--- NOTE | 2023-08-31 14:42 | W.PN.NEPH.PH ---
Today's Communication / Plan
-
cont lasix
Assessment/Plan
-
Assessment:
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
CKD stage 3b -cr 1.4-2-wide range of cr
Atrial fibrillation with slow VR
ASCVD s/p carotid, cardiac, renal, and bilateral lower extremity stent
PAD with renal and lower extremity arterial stenting
EILEEN s/p stent in 2006
Carotid stenosis
Primary hypertension
Diabetes mellitus type II
Hypothyroidism
BPH
History of bladder cancer s/p TURBT
DVT proph: Xarelto
Plan:
-cr remains with in baseline range , most recent cr was up at 2early Aug
possible chronic kidney disease from cardiorenal and diabetes
cont lasix still he still needs to lose more wt
UA was bland, U PCR 1.7gm /gm of cr seem tubular protein-will need paraprotein w/u
renal US non obst stone, PVR 299cc-monitor with bladder scan
strict FR and low salt diet
BP are stable
anemia-check fe panel
d/w pt and family at bedside
d/w primary and nusring
-
-
Date of Service: August 31, 2023
CC / HPI / ROS
-
Chief Complaint:
CKD
History of Present Illness:
cr is up at 1.7 but with in baseline
wt decreasing, hb low 8.8
Bp stable, no fever
afib on tele but not new
Review of Systems:
no cp or sob
feels better
Labs
-
Labs:
WBC 5.7 10^3/uL (4.8-10.8) 08/31/23 06:16
RBC 2.68 10^6/uL (4.70-6.10) L 08/31/23 06:16
Hgb 8.8 g/dL (13.0-18.0) L 08/31/23 06:16
Hct 27.7 % (39.0-52.0) L 08/31/23 06:16
Plt Count 210 10^3/uL (130-400) 08/31/23 06:16
Sodium 138 mmol/L (135-145) 08/31/23 06:16
Potassium 3.4 mmol/L (3.5-5.1) L 08/31/23 06:16
Chloride 97 mmol/L (98-107) L 08/31/23 06:16
Carbon Dioxide 34 mmol/L (22-30) H 08/31/23 06:16
BUN 23 mg/dl (9-20) H 08/31/23 06:16
Creatinine 1.7 mg/dL (0.7-1.3) H 08/31/23 06:16
eGFR 39.26 08/31/23 06:16
Glucose 42 mg/dl (70-99) L* 08/31/23 06:16
Calcium 8.1 mg/dl (8.4-10.2) L 08/31/23 06:16
Xgw-Y-Tgnjaxtdbjv Pept 40563 pg/ml 08/29/23 15:58
Albumin 3.0 g/dl (3.5-5.0) L 08/29/23 15:58
Physical Exam
-
Vital Signs:
Vital Signs
Temp Pulse Resp BP Pulse Ox
98.7 F 75 18 124/54 99
08/31/23 11:28 08/31/23 11:28 08/31/23 11:28 08/31/23 11:28 08/31/23 11:28
Cardiovascular:: Regular rate and rhythm
Respiratory:: Bilateral: Rales (at bases)
Lung Excursion:: Normal
Abdomen:: Nontender and Soft
Extremity Edema:: +1: Bilateral:
Quiroz Catheter: No
[2023-08-31 15:09] LABS: Glucose - Point of Care 170 mg/dl (70-99)
--- NOTE | 2023-08-31 15:23 | CM ---
CM reviewed medical records. CM met with patient, , son and steeplechase jockey in room. Patient confirmed demographics. Patient lives with in a two story home. Patient has been current with [facility] and would be agreeable to [facility]. Patient was recently at
[place] and [facility]. Patient DOES NOT want to return to [facility] and would prefer to avoid SNF. Patient is active with his PCP and uses [facility] for medication services.
Patient had oxygen in the home, but recently had the concentrator removed.
CM will watch for PT needs.
[2023-08-31] MEDS: NOVOLOG FLEXPEN-LOW RESISTANCE 1 UNITS SC (17:45)
[2023-08-31 17:46] LABS: Glucose - Point of Care 154 mg/dl (70-99)
[2023-08-31 21:29] LABS: Glucose - Point of Care 202 mg/dl (70-99)
[2023-08-31] MEDS: PEPCID 20 MG PO (22:21)
[2023-09-01] VITALS (7 sets, daily range): BP systolic 93–138; BP diastolic 57–67; BMI 31.4
[2023-09-01 04:01] LABS: Glucose - Point of Care 144 mg/dl (70-99)
[2023-09-01] MEDS: SYNTHROID 50 MCG PO (05:26)
[2023-09-01] MEDS: SYNTHROID 200 MCG PO (05:26)
[2023-09-01 06:16] LABS: Hematocrit 28.7 % (39.0-52.0); Mean Corp Hgb Conc. 31.4 g/dL (33.0-37.0); Mean Corpuscular Hgb 32.4 pg (27.0-31.0); Mean Corpuscular Volume 103.2 fL (80.0-94.0); Platelet Count 211 10^3/uL (130-400); Red Blood Cell Count 2.78 10^6/uL (4.70-6.10); Red Cell Dist. Width 15.5 % (11.5-14.5); White Blood Cell Count 5.9 10^3/uL (4.8-10.8)
[2023-09-01 06:45] LABS: Blood Urea Nitrogen 22 mg/dl (9-20); Carbon Dioxide 36 mmol/L (22-30); Chloride 96 mmol/L (98-107); Estimated Creatinine Clearance 32 ml/min; Glucose 131 mg/dl (70-99); Iron 50 ug/dl (49-181); Sodium 133 mmol/L (135-145); eGFR 42.22
[2023-09-01 06:54] LABS: Percent Saturation 19 % (20-50); Total Iron Binding Capacity 252 ug/dl (261-462)
[2023-09-01 07:19] LABS: Ferritin 92.6 ng/ml (17.9-464.0)
[2023-09-01 07:36] LABS: Glucose - Point of Care 154 mg/dl (70-99)
[2023-09-01] MEDS: NOVOLOG FLEXPEN-LOW RESISTANCE 1 UNITS SC ×2 (09:26→17:36)
[2023-09-01] MEDS: ASPIR LOW (ENTERIC COATED) 81 MG PO (09:27)
[2023-09-01] MEDS: FLOMAX 0.800000000000000044 MG PO (09:27)
[2023-09-01] MEDS: COLACE 100 MG PO ×2 (09:27→20:19)
[2023-09-01] MEDS: FEOSOL 325 MG PO (09:27)
[2023-09-01] MEDS: PROSCAR 5 MG PO (09:28)
[2023-09-01] MEDS: FOLTX 1 TABLET PO (09:28)
[2023-09-01] MEDS: XARELTO 2.5 MG PO ×2 (09:28→20:19)
[2023-09-01] MEDS: MEXITIL 150 MG PO ×3 (09:28→21:40)
[2023-09-01] MEDS: LIPITOR 40 MG PO (09:28)
[2023-09-01] MEDS: VITAMIN C 500 MG PO (09:28)
[2023-09-01] MEDS: THERAGRAN 1 TABLET PO (09:28)
[2023-09-01] MEDS: LASIX 40 MG IV (09:29)
[2023-09-01] MEDS: ZEBETA 7.5 MG PO (09:29)
[2023-09-01 12:10] LABS: Glucose - Point of Care 233 mg/dl (70-99)
[2023-09-01] MEDS: NOVOLOG FLEXPEN-LOW RESISTANCE 2 UNITS SC (12:36)
--- NOTE | 2023-09-01 12:37 | W.PN.NEPH.PH ---
Today's Communication / Plan
-
likely change to po lasix tomorrow to 40mg po
Assessment/Plan
-
Assessment:
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
CKD stage 3b -cr 1.4-2-wide range of cr
Atrial fibrillation with slow VR
ASCVD s/p carotid, cardiac, renal, and bilateral lower extremity stent
PAD with renal and lower extremity arterial stenting
EILEEN s/p stent in 2006
Carotid stenosis
Primary hypertension
Diabetes mellitus type II
Hypothyroidism
BPH
History of bladder cancer s/p TURBT
DVT proph: Xarelto
Plan:
-cr remains with in baseline range , most recent cr was up at 2early Aug
possible chronic kidney disease from cardiorenal and diabetes
cont lasix IV , wt improving , change to 40mg daily of lasix at d/c
UA was bland, U PCR 1.7gm /gm of cr seem tubular protein-will need paraprotein w/u
renal US non obst stone, PVR 299cc-monitor with bladder scan
strict FR and low salt diet
BP are stable
anemia-hb improving, fe sat 19%, cont po fe
d/w pt and nursing
f/u with his out pt nephro
-
-
Date of Service: September 01, 2023
CC / HPI / ROS
-
Chief Complaint:
CKD
History of Present Illness:
cr is stable at 1.6 but with in baseline
wt decreasing, hb better at 9
Bp stable, no fever
Review of Systems:
no cp or sob
feels better
Labs
-
Labs:
WBC 5.9 10^3/uL (4.8-10.8) 09/01/23 06:02
RBC 2.78 10^6/uL (4.70-6.10) L 09/01/23 06:02
Hgb 9.0 g/dL (13.0-18.0) L 09/01/23 06:02
Hct 28.7 % (39.0-52.0) L 09/01/23 06:02
Plt Count 211 10^3/uL (130-400) 09/01/23 06:02
Sodium 133 mmol/L (135-145) L 09/01/23 06:02
Potassium 4.0 mmol/L (3.5-5.1) 09/01/23 06:02
Chloride 96 mmol/L (98-107) L 09/01/23 06:02
Carbon Dioxide 36 mmol/L (22-30) H 09/01/23 06:02
BUN 22 mg/dl (9-20) H 09/01/23 06:02
Creatinine 1.6 mg/dL (0.7-1.3) H 09/01/23 06:02
eGFR 42.22 09/01/23 06:02
Glucose 131 mg/dl (70-99) H 09/01/23 06:02
Calcium 8.0 mg/dl (8.4-10.2) L 09/01/23 06:02
Xcn-I-Abwikmrbmhl Pept 47384 pg/ml 08/29/23 15:58
Albumin 3.0 g/dl (3.5-5.0) L 08/29/23 15:58
Physical Exam
-
Vital Signs:
Vital Signs
Temp Pulse Resp BP Pulse Ox
97.7 F 71 18 127/65 93
09/01/23 11:18 09/01/23 11:18 09/01/23 11:18 09/01/23 11:18 09/01/23 11:18
Cardiovascular:: Regular rate and rhythm
Respiratory:: Bilateral: Rales (at bases-improving)
Lung Excursion:: Normal
Abdomen:: Nontender and Soft
Extremity Edema:: None: Bilateral: (trace)
Quiroz Catheter: No
--- NOTE | 2023-09-01 15:27 | W.PN.CARDCBS ---
Today's Communication / Plan
-
Continue IV Lasix
Consider change to oral Lasix in a.m.
Need to decide whether Xarelto should be increased to therapeutic dosing given possible ECG in July 2023 with A-fib and will depend on interrogation of Linq monitor
Impression / Plan
-
PCP: Dr. Vallejo
Corporate Legal Manager Dr. Moore at [facility]
Impression:
Acute on chronic HFrEF
Non-DE troponin elevation
Recent CVA
Paroxysmal atrial fibrillation noted on ECG in July 2023 ?
Stage IIIb renal insufficiency
CAD
s/p Roto KAREN LCX (4 x12 mm Promus) & LAD KAREN 06/2014 (3.5 x 12 mm Promus)
s/p LAD Roto KAREN� (3.5 x 15 mm [place] KAREN) 01/20
Ventricular bigeminy/PAT maintained on mexiletine
PVD
s/p iliac prosper stents 01/2007
s/p R&L EIA stents 08/2021
Renal artery stenosis
�s/p right renal artery stent 01/2007
Carotid stenosis
s/p Rt CEA 08/2017
Hypertension
Hyperlipidemia
Type 2 diabetes
Hypothyroidism
Bladder cancer
Cystoscopy, transurethral resection of bladder tumor, placement of 6 x 24 double-J stent, retrograde pyelogram 09/2018
Lexiscan nuclear stress test 01/22/2022: Normal perfusion, EF 52%
Carotid ultrasound 08/28/2022:�JEANNE 1 to 15% stenosis, LICA 50 to 79% stenosis
Echo 01/22/2022: EF 55 to 60%, mild MR, AV sclerosis
Echo 01/14/2023: EF 41%, global hypokinesis, moderate MR, moderate to severe TR, estimated PAP 48 mmHg
Plan:
He remains on oxygen
He might need home oxygen
Weight continues to decrease slightly with relatively stable creatinine of 1.6 on 09/01
Continue IV Lasix, consider change to oral Lasix on 09/02
Continues on bisoprolol. Renal insufficiency and hypotension limit up titration of medical therapy.
Possible history of paroxysmal atrial fibrillation, however unclear if this has become a definitive diagnosis. Loop monitor implanted following recent CVA.
Need to check device. He is on Xarelto 2.5 mg twice daily for history of PAD. Given recent CVA and suspected paroxysmal atrial fibrillation ? would benefit from therapeutic dose Xarelto. ECG from 07/10/2023 may be atrial fibrillation
Need to see if echocardiogram was done at the time of stroke recently at [place]
He does have history of paroxysmal atrial tachycardia noted previously and is maintained on mexiletine.
Discussed with patient and at bedside
HPI: Garret is an 83-year-old male with past medical history of chronic HFrEF, CAD, PVD, renal artery stenosis, carotid stenosis, hypertension, hyperlipidemia, type 2 diabetes, CKD, hypothyroidism, and bladder cancer who presented to ER for
evaluation of worsening shortness of breath. He had a recent fall and subacute CVA and had a rehab stay at [facility] earlier this month. He has since returned home and has been having difficulty with ambulation. He also has had weight gain and
increased edema. Family was concerned that he was retaining fluid and brought him in for evaluation. On arrival to the ER, he was hypoxic and was placed on supplemental oxygen. He was found to have evidence of acute heart failure on chest x-ray
with severe pulmonary edema and small bilateral pleural effusions. ProBNP elevated at 12,500. He was started on IV Lasix and cardiology was consulted for evaluation. He is resting comfortably in bed this morning with no acute complaints.
Progress Note - Corporate Legal Manager
Subjective
Date of Service: September 01, 2023
No complaints
Objective
Labs:
09/01/23 06:02
09/01/23 06:02
Labs
Hgb 9.0 g/dL (13.0-18.0) L 09/01/23 06:02
Hct 28.7 % (39.0-52.0) L 09/01/23 06:02
Plt Count 211 10^3/uL (130-400) 09/01/23 06:02
Sodium 133 mmol/L (135-145) L 09/01/23 06:02
Potassium 4.0 mmol/L (3.5-5.1) 09/01/23 06:02
BUN 22 mg/dl (9-20) H 09/01/23 06:02
Creatinine 1.6 mg/dL (0.7-1.3) H 09/01/23 06:02
Glucose 131 mg/dl (70-99) H 09/01/23 06:02
Troponins
08/29/23 08/30/23 08/30/23
15:58 10:05 12:19
Troponin I 0.039 H* Cancelled 0.071 H*
08/30/23 08/30/23
15:00 17:57
Troponin I Cancelled 0.062 H*
Vital Signs and I&O:
Vital Signs
Temp Pulse Resp BP Pulse Ox
97.7 F 71 18 127/65 93
09/01/23 11:18 09/01/23 11:18 09/01/23 11:18 09/01/23 11:18 09/01/23 11:18
Vital Signs
Temp Pulse Resp BP Pulse Ox
97.7 F 71 18 127/65 93
09/01/23 11:18 09/01/23 11:18 09/01/23 11:18 09/01/23 11:18 09/01/23 11:18
Intake & Output
08/30/23 08/31/23 09/01/23 09/02/23
06:59 06:59 06:59 06:59
Intake Total 780 / 780
Output Total 1850 / 1850 1000 / 1000 350 / 350
Balance -1850 / -1850 -220 / -220 -350 / -350
Physical Exam
Physical Exam
General: Well developed, well nourished in NAD.
Neck: Supple, no JVD, HJR, carotids +2 B/L, no bruits bilaterally.
Heart: Non displaced PMI, RRR, no murmurs, No S3, S4, no rubs.
Lungs: Scattered rhonchi
Extremities: No clubbing, cyanosis or edema bilaterally.
Neuro: Grossly nonfocal, awake, alert and oriented x3.
--- NOTE | 2023-09-01 16:10 | W.PN.HOSP.TC ---
Today's Communication/Plan
-
Continue IV Lasix
Restart Lantus at a lower dose tonight
PT OT
Needs rehab. Discussed with about looking at 1.
Assessment / Plan
Assessment / Plan
83 y/o male with shortness of breath. Complex medical course in the last 2 months. Patient had a shoulder replacement surgery on 07/09/2023 and was sent to rehab where he had a fall and hit his head. He was sent to [facility] where he was
diagnosed with a CVA and transferred to [place] rehab. Eventually he was discharged home. He was feeling weak and decreased urine output and shortness of breath therefore brought in to [facility].
On examination not in distress
On oxygen
Cardiovascular system S1-S2 irregular, systolic murmur apex
Chest decreased breath sounds at bases
Few rales
Soft nontender
Bilateral pedal edema noted-better
# Acute on chronic heart failure with reduced ejection fraction
Echo 01/14/2023-normal LV thickness, EF 41%, global hypokinesis, diastolic function indeterminate. Thickened mitral leaflets. Moderate MR. Moderate to severe TR. Pulmonary artery pressure 48 mmHg.
Patient not on any Lasix as outpatient
Primary recreation instructor is at [place]
Elevated proBNP noted
Continue IV Lasix
Daily weights/intake output charting
weight better
# Elevated troponin-non NE type
#ASCVD-ASA,Statin
History of cardiac stents LAD and circumflex
# Paroxysmal atrial fibrillation
No mention of atrial fibrillation from the preop note from his outpatient recreation instructor.
EKG from 07/10/2023-looks like A-fib.
On Xarelto as outpatient
Dose of Xarelto was only 2.5 twice daily which is a vascular dose
On bisoprolol 7.5 mg daily
Loop monitor will be interrogated on Saturday to see if patient has atrial fibrillation if so Xarelto may need to be increased to 15 mg.
#Long QTC
#Insulin-dependent diabetes
On Lantus and sliding scale coverage
Lantus 8 to 10 units at nighttime at home
Blood sugars are rising therefore I will start Lantus at 60 units tonight.
# Enlarged prostate
Finasteride and tamsulosin
Change tamsulosin to nighttime dosing
# CKD stage III
Has not seen nephrology in the past
# History of left reverse shoulder replacement July 2023
# CVA-aspirin and statin
Loop recorder implanted on July 16
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
# Hyperlipidemia/Atherosclerosis-statin
# Hypothyroidism-Synthroid 250 mcg daily
# Anemia-Iron studies noted
Anemia of chronic disease
# Fall in Jul 2023
# History of bladder cancer history of TURBT
# History of peripheral vascular disease
Per previous notes carotid ultrasound August 2022 minimal right carotid stenosis and moderate left carotid stenosis.-This has been monitored for years.
Right carotid endarterectomy.
History of bilateral iliac stents
# History of renal artery stenosis with right renal artery stent
# Ex-smoker
# DVT prophylaxis-Xarelto
# Full code
Cardiology notes reviewed. That does not mention about atrial fibrillation. Also the notes from 07/04/2023 has Bumex 0.5 mg tablet daily which the patient does not seem to be on.
and son confirms dose of Synthroid to be 250 mcg.
Son is not very sure if the patient has A-fib
Spoke to patient's at bedside
Discussed with cardiology
Discussed with nursing
Anticipated Discharge: 24 - 48 hours
Subjective/Interval History
-
Date of Service: September 01, 2023
Objective Data
-
Labs:
Laboratory Results
09/01/23
06:02
WBC 5.9
Hgb 9.0 L
Hct 28.7 L
Plt Count 211
Sodium 133 L
Potassium 4.0
Chloride 96 L
Carbon Dioxide 36 H
BUN 22 H
Creatinine 1.6 H
Glucose 131 H
Calcium 8.0 L
Vital Signs:
Vital Signs
Temp Pulse Resp BP Pulse Ox
98.2 F 65 16 93/58 93
09/01/23 15:35 09/01/23 15:35 09/01/23 15:35 09/01/23 15:35 09/01/23 15:35
I&O
08/31/23 09/01/23 09/02/23
06:59 06:59 06:59
Intake Total 780 / 780
Output Total 1000 / 1000 350 / 350
Balance -220 / -220 -350 / -350
[2023-09-01 16:52] LABS: Glucose - Point of Care 177 mg/dl (70-99)
[2023-09-01 21:25] LABS: Glucose - Point of Care 188 mg/dl (70-99)
[2023-09-01] MEDS: LANTUS 0.0599999999999999978 UNITS SC (21:39)
[2023-09-01] MEDS: PEPCID 20 MG PO (21:40)
[2023-09-02] VITALS (8 sets, daily range): BP systolic 96–152; BP diastolic 58–69; PULSE 71; O2SAT 97
[2023-09-02 03:16] LABS: Glucose - Point of Care 148 mg/dl (70-99)
[2023-09-02] MEDS: SYNTHROID 200 MCG PO (05:51)
[2023-09-02] MEDS: SYNTHROID 50 MCG PO (05:51)
[2023-09-02 06:34] LABS: Hematocrit 29.6 % (39.0-52.0); Hemoglobin 9.4 g/dL (13.0-18.0); Mean Corp Hgb Conc. 31.8 g/dL (33.0-37.0); Mean Corpuscular Hgb 31.5 pg (27.0-31.0); Mean Corpuscular Volume 99.3 fL (80.0-94.0); Mean Platelet Volume 9.6 fL (7.4-10.4); Platelet Count 221 10^3/uL (130-400); Red Blood Cell Count 2.98 10^6/uL (4.70-6.10); Red Cell Dist. Width 15.6 % (11.5-14.5); White Blood Cell Count 6.1 10^3/uL (4.8-10.8)
[2023-09-02 07:19] LABS: Blood Urea Nitrogen 26 mg/dl (9-20); Calcium 8.5 mg/dl (8.4-10.2); Carbon Dioxide 37 mmol/L (22-30); Chloride 91 mmol/L (98-107); Estimated Creatinine Clearance 30 ml/min; Glucose 131 mg/dl (70-99); Potassium 3.9 mmol/L (3.5-5.1); Sodium 135 mmol/L (135-145); eGFR 39.26
[2023-09-02 07:22] LABS: Glucose - Point of Care 135 mg/dl (70-99)
[2023-09-02] MEDS: NOVOLOG FLEXPEN-LOW RESISTANCE SC (07:31)
[2023-09-02] MEDS: ZEBETA 7.5 MG PO (08:33)
[2023-09-02] MEDS: MEXITIL 150 MG PO ×3 (08:33→21:14)
[2023-09-02] MEDS: FOLTX 1 TABLET PO (08:33)
[2023-09-02] MEDS: XARELTO 2.5 MG PO (08:34)
[2023-09-02] MEDS: FEOSOL 325 MG PO (08:34)
[2023-09-02] MEDS: LIPITOR 40 MG PO (08:34)
[2023-09-02] MEDS: PROSCAR 5 MG PO (08:34)
[2023-09-02] MEDS: ASPIR LOW (ENTERIC COATED) 81 MG PO (08:34)
[2023-09-02] MEDS: THERAGRAN 1 TABLET PO (08:34)
[2023-09-02] MEDS: COLACE 100 MG PO ×2 (08:34→21:13)
[2023-09-02] MEDS: VITAMIN C 500 MG PO (08:34)
[2023-09-02] MEDS: LASIX 40 MG IV (08:45)
--- NOTE | 2023-09-02 10:30 | W.PN.CARDCBS ---
Addendum entered and electronically signed by Len Goncalves MD 09/02/23 13:14:
I saw and examined the patient.
The ELECTRICAL ENGINEER or PA's note was reviewed and I agree with the note.
Comment: General: Well developed, well nourished in NAD.
Neck: Supple, no JVD, HJR, carotids +2 B/L, no bruits bilaterally.
Heart: Non displaced PMI, RRR, no murmurs, No S3, S4, no rubs.
Lungs: Scattered rhonchi
Extremities: No clubbing, cyanosis or edema bilaterally.
Neuro: Grossly nonfocal, awake, alert and oriented x3.
Difficult to tell but likely has atrial tachycardia at the very least and was probably in A-fib on an ECG in July 2023. Will increase Xarelto to 15 mg daily given recent CVA. Will check loop recorder. Change to oral Lasix on 09/03 AM.
Follow-up at [place]. He will end up going to rehab. Discussed with nursing
Original Note:
Today's Communication / Plan
-
Attempt to obtain records regarding loop recorder and interrogate
Consider increasing Xarelto to 15mg daily
Transition to PO lasix in AM.
Impression / Plan
-
PCP: Dr. Vallejo
Neurology Epilepsy Physician Dr. Moore at [facility]
Impression:
Acute on chronic HFrEF
Non-OH troponin elevation
Recent CVA
Possible paroxysmal atrial fibrillation noted on ECG in 07/2023
CKD 3b
CAD
s/p Roto KAREN LCX (4 x12 mm Promus) & LAD KAREN 06/2014 (3.5 x 12 mm Promus)
s/p LAD Roto KAREN� (3.5 x 15 mm [place] KAREN) 01/20
Ventricular bigeminy/PAT maintained on mexiletine
PVD
s/p iliac prosper stents 01/2007
s/p R&L EIA stents 08/2021
Renal artery stenosis
�s/p right renal artery stent 01/2007
Carotid stenosis
s/p Rt CEA 08/2017
Hypertension
Hyperlipidemia
Type 2 diabetes
Hypothyroidism
Bladder cancer
Cystoscopy, transurethral resection of bladder tumor, placement of 6 x 24 double-J stent, retrograde pyelogram 09/2018
Lexiscan nuclear stress test 01/22/2022: Normal perfusion, EF 52%
Carotid ultrasound 08/28/2022:�JEANNE 1 to 15% stenosis, LICA 50 to 79% stenosis
Echo 01/22/2022: EF 55 to 60%, mild MR, AV sclerosis
Echo 01/14/2023: EF 41%, global hypokinesis, moderate MR, moderate to severe TR, estimated PAP 48 mmHg
Plan:
-Presented with weight gain, shortness of breath, and edema.� Found to be in acute heart failure with severe pulmonary edema and small bilateral pleural effusions on chest x-ray with proBNP 12,500.
-Continue diuresis with IV Lasix 40 mg daily.� Weight down to 177lbs. Creat 1.7.
-Will transition to PO lasix 40mg daily in AM.
-Known cardiomyopathy with EF 41% 01/14/2023.� Continues on bisoprolol.� Renal insufficiency and hypotension have limited uptitration of medical therapy.
-Possible history of paroxysmal atrial fibrillation, however unclear if this has become a definitive diagnosis.� Loop monitor implanted following recent CVA.
-Called primary digital librarian to find out what land acquisition manager his monitor is, awaiting call back. Will need interrogation.
-He is on Xarelto 2.5 mg twice daily for history of PAD.� Given recent CVA and suspected paroxysmal atrial fibrillation and known atrial tachycardia, would consider increasing to therapeutic dose Xarelto 15mg daily.
-Continue mexiletine for atrial tachcardia.
-Heart rate is stable currently on review of telemetry.
-Non-OH troponin elevation in the setting of acute heart failure exacerbation noted with peak troponin 0.071. Recent stress test 01/30/2022 without ischemia.�
-Continue baby aspirin and atorvastatin.
HPI: Garret is an 83-year-old male with past medical history of chronic HFrEF, CAD, PVD, renal artery stenosis, carotid stenosis, hypertension, hyperlipidemia, type 2 diabetes, CKD, hypothyroidism, and bladder cancer who presented to ER for
evaluation of worsening shortness of breath. He had a recent fall and subacute CVA and had a rehab stay at [facility] earlier this month. He has since returned home and has been having difficulty with ambulation. He also has had weight gain and
increased edema. Family was concerned that he was retaining fluid and brought him in for evaluation. On arrival to the ER, he was hypoxic and was placed on supplemental oxygen. He was found to have evidence of acute heart failure on chest x-ray
with severe pulmonary edema and small bilateral pleural effusions. ProBNP elevated at 12,500. He was started on IV Lasix and cardiology was consulted for evaluation. He is resting comfortably in bed this morning with no acute complaints.
Progress Note - Neurology Epilepsy Physician
Subjective
Date of Service: September 02, 2023
No complaints. Breathing improved. No edema.
Objective
Labs:
09/02/23 06:21
09/02/23 06:21
Labs
Hgb 9.4 g/dL (13.0-18.0) L 09/02/23 06:21
Hct 29.6 % (39.0-52.0) L 09/02/23 06:21
Plt Count 221 10^3/uL (130-400) 09/02/23 06:21
Sodium 135 mmol/L (135-145) 09/02/23 06:21
Potassium 3.9 mmol/L (3.5-5.1) 09/02/23 06:21
BUN 26 mg/dl (9-20) H 09/02/23 06:21
Creatinine 1.7 mg/dL (0.7-1.3) H 09/02/23 06:21
Glucose 131 mg/dl (70-99) H 09/02/23 06:21
Troponins
08/30/23 08/30/23 08/30/23
12:19 15:00 17:57
Troponin I 0.071 H* Cancelled 0.062 H*
Vital Signs and I&O:
Vital Signs
Temp Pulse Resp BP Pulse Ox
98.4 F 71 18 107/64 97
09/02/23 06:59 09/02/23 06:59 09/02/23 06:59 09/02/23 06:59 09/02/23 08:30
Vital Signs
Temp Pulse Resp BP Pulse Ox
98.4 F 71 18 107/64 97
09/02/23 06:59 09/02/23 06:59 09/02/23 06:59 09/02/23 06:59 09/02/23 08:30
Intake & Output
08/31/23 09/01/23 09/02/23 09/03/23
06:59 06:59 06:59 06:59
Intake Total 780 / 780 960 / 960
Output Total 1000 / 1000 350 / 350 1125 / 1125
Balance -220 / -220 -350 / -350 -165 / -165
Physical Exam
Physical Exam
GEN: No distress, awake, alert, resting comfortably in bed.
HEENT: supple, anicteric, mmm
LUNGS: CTA b/l, no wheezes/rales
CV: Reg, S1/S2, no murmur
ABD: soft, BS+, NT/ND
EXT: No clubbing, cyanosis, or edema
NEURO: Gross non-focal
SKIN: Warm, dry, no rash
[2023-09-02 11:45] LABS: Glucose - Point of Care 217 mg/dl (70-99)
--- NOTE | 2023-09-02 11:55 | W.PN.NEPH.PH ---
Today's Communication / Plan
-
po lasix
Assessment/Plan
-
Assessment:
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
CKD stage 3b -cr 1.4-2-wide range of cr
Atrial fibrillation with slow VR
ASCVD s/p carotid, cardiac, renal, and bilateral lower extremity stent
PAD with renal and lower extremity arterial stenting
EILEEN s/p stent in 2006
Carotid stenosis
Primary hypertension
Diabetes mellitus type II
Hypothyroidism
BPH
History of bladder cancer s/p TURBT
DVT proph: Xarelto
Plan:
-po lasix
-follow BMP
-
-
Date of Service: September 02, 2023
CC / HPI / ROS
-
Chief Complaint:
CKD
History of Present Illness:
cr is stable at 1.7
wt decreasing
hgb stable
BP stable, no fever
Review of Systems:
no cp or sob
feels better
Labs
-
Labs:
WBC 6.1 10^3/uL (4.8-10.8) 09/02/23 06:21
RBC 2.98 10^6/uL (4.70-6.10) L 09/02/23 06:21
Hgb 9.4 g/dL (13.0-18.0) L 09/02/23 06:21
Hct 29.6 % (39.0-52.0) L 09/02/23 06:21
Plt Count 221 10^3/uL (130-400) 09/02/23 06:21
Sodium 135 mmol/L (135-145) 09/02/23 06:21
Potassium 3.9 mmol/L (3.5-5.1) 09/02/23 06:21
Chloride 91 mmol/L (98-107) L 09/02/23 06:21
Carbon Dioxide 37 mmol/L (22-30) H 09/02/23 06:21
BUN 26 mg/dl (9-20) H 09/02/23 06:21
Creatinine 1.7 mg/dL (0.7-1.3) H 09/02/23 06:21
eGFR 39.26 09/02/23 06:21
Glucose 131 mg/dl (70-99) H 09/02/23 06:21
Calcium 8.5 mg/dl (8.4-10.2) 09/02/23 06:21
Afl-V-Rjijjwsblpy Pept 11081 pg/ml 08/29/23 15:58
Albumin 3.0 g/dl (3.5-5.0) L 08/29/23 15:58
Physical Exam
-
Vital Signs:
Vital Signs
Temp Pulse Resp BP Pulse Ox
98.4 F 71 18 107/64 97
09/02/23 06:59 09/02/23 06:59 09/02/23 06:59 09/02/23 06:59 09/02/23 08:30
Cardiovascular:: Regular rate and rhythm
Respiratory:: Bilateral: Coarse
Lung Excursion:: Normal
Abdomen:: Nontender and Soft
Bowel Sounds:: Normal
Extremity Edema:: None: Bilateral:
[2023-09-02] MEDS: NOVOLOG FLEXPEN-LOW RESISTANCE 2 UNITS SC (11:59)
--- NOTE | 2023-09-02 15:11 | W.PN.HOSP.TC ---
Today's Communication/Plan
-
Chest x-ray tomorrow
Continue diuretics
Orthopedics evaluation
Increase Lantus to 8 units
Assessment / Plan
Assessment / Plan
83 y/o male with shortness of breath. Complex medical course in the last 2 months. Patient had a shoulder replacement surgery on 07/09/2023 and was sent to rehab where he had a fall and hit his head. He was sent to [facility] where he was
diagnosed with a CVA and transferred to [place] rehab. Eventually he was discharged home. He was feeling weak and decreased urine output and shortness of breath therefore brought in to [facility].
Cardiovascular system S1-S2 irregular, systolic murmur apex
Chest decreased breath sounds at bases
Few rales
Soft nontender
Bilateral pedal edema noted-better
# Acute on chronic heart failure with reduced ejection fraction
Echo 01/14/2023-normal LV thickness, EF 41%, global hypokinesis, diastolic function indeterminate. Thickened mitral leaflets. Moderate MR. Moderate to severe TR. Pulmonary artery pressure 48 mmHg.
Patient not on any Lasix as outpatient
Primary crown buffer is at [place]
Elevated proBNP noted
Continue IV Lasix
Daily weights/intake output charting
weight better
CXR in am
# Elevated troponin-non [place] type
#ASCVD-ASA,Statin
History of cardiac stents LAD and circumflex
# Paroxysmal atrial fibrillation
No mention of atrial fibrillation from the preop note from his outpatient crown buffer.
EKG from 07/10/2023-looks like A-fib.
On Xarelto 2.5 BID as outpatient
Xarelto chnaged to 15 mg
On bisoprolol 7.5 mg daily
Loop monitor will be interrogated
#Long QTC
#Insulin-dependent diabetes
On Lantus and sliding scale coverage
Lantus 8 to 10 units at nighttime at home
Blood sugars are rising therefore I will start Lantus at 8 units tonight.
# Enlarged prostate
Finasteride and tamsulosin
Changed tamsulosin to nighttime dosing
# CKD stage III
Has not seen nephrology in the past
# History of left reverse shoulder replacement July 2023
Xray noted.
Orthopedics recommends no weightbearing for 6 more weeks.
# CVA-aspirin and statin
Loop recorder implanted on July 16 2023
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
# Hyperlipidemia/Atherosclerosis-statin
# Hypothyroidism-Synthroid 250 mcg daily
# Anemia-Iron studies noted
Anemia of chronic disease
# Fall in Jul 2023
# History of bladder cancer history of TURBT
# History of peripheral vascular disease
Per previous notes carotid ultrasound August 2022 minimal right carotid stenosis and moderate left carotid stenosis.-This has been monitored for years.
Right carotid endarterectomy.
History of bilateral iliac stents
# History of renal artery stenosis with right renal artery stent
# Ex-smoker
# DVT prophylaxis-Xarelto
# Full code
Spoke to patient's at bedside
Discussed with cardiology
Discussed with nursing
D/W Ortho
Anticipated Discharge: 24 - 48 hours
Subjective/Interval History
-
Date of Service: September 02, 2023
Objective Data
-
Labs:
Laboratory Results
09/02/23
06:21
WBC 6.1
Hgb 9.4 L
Hct 29.6 L
Plt Count 221
Sodium 135
Potassium 3.9
Chloride 91 L
Carbon Dioxide 37 H
BUN 26 H
Creatinine 1.7 H
Glucose 131 H
Calcium 8.5
Vital Signs:
Vital Signs
Temp Pulse Resp BP Pulse Ox
97.9 F 68 13 107/63 100
09/02/23 12:17 09/02/23 12:17 09/02/23 12:17 09/02/23 12:17 09/02/23 12:17
I&O
09/01/23 09/02/23 09/03/23
06:59 06:59 06:59
Intake Total 960 / 960
Output Total 350 / 350 1125 / 1125
Balance -350 / -350 -165 / -165
[2023-09-02 16:45] LABS: Glucose - Point of Care 192 mg/dl (70-99)
[2023-09-02] MEDS: XARELTO 15 MG PO (17:19)
[2023-09-02] MEDS: NOVOLOG FLEXPEN-LOW RESISTANCE 1 UNITS SC (17:19)
--- NOTE | 2023-09-02 17:36 | W.PN.UPDATE ---
Update Note
Progress Note Update
X-ray of the shoulder reviewed
Patient is just over 6 weeks from reverse shoulder arthroplasty for fracture
He should continue to be NWB.
Does not need to wear the sling
Ok to work on ROM as tolerated with the therapist
Follow up in the office in 1-2 weeks upon discharge
[2023-09-02] MEDS: PEPCID 20 MG PO (21:13)
[2023-09-02] MEDS: FLOMAX 0.800000000000000044 MG PO (21:18)
[2023-09-02 21:39] LABS: Glucose - Point of Care 230 mg/dl (70-99)
[2023-09-02] MEDS: LANTUS 0.0599999999999999978 UNITS SC (21:53)
--- NOTE | 2023-09-02 22:50 | PTCARENOTE ---
when bed alarm went off, found patient sitting on his knees by the bed. Patient stated he didn't fall, but crawled down to bed. No c/o pain or any other discomfort. Helped patient back to bed. No c/o pain or any other discomfort as per patient.
AAOx1. 97.7,76,20,152/90,[address] RA[address] alarm [address]. Reoriented patient with situation. Jaquelin chou made aware of the fall. supervisor nut processing made aware as well. will continue to monitor.
--- NOTE | 2023-09-02 22:50 | PTCARENOTE ---
When bed alarm went off, found patient sitting on his knees by the bed. Patient stated he didn't fall, but crawled down to bed. No c/o pain or any other discomfort. Helped patient back to bed. No c/o pain or any other discomfort as per patient.
AAOx1. 97.7,76,20,152/90,91 RA[address] Bed alarm in place. Reoriented patient with situation. JAYY De Jesus made aware of the fall. complaint evaluation supervisor made aware as well. will continue to monitor.
[2023-09-03] VITALS (8 sets, daily range): BP systolic 101–151; BP diastolic 44–78; PULSE 66; O2SAT 96; BMI 29.5; BMI 30.2
--- NOTE | 2023-09-03 01:59 | PTCARENOTE ---
When bed alarm went off, found patient sitting on his knees by the bed. Patient stated he didn't fall, but crawled down to bed. No c/o pain or any other discomfort. Helped patient back to bed. No c/o pain or any other discomfort as per patient.
AAOx1. 97.7,76,20,152/90,91 RA. Bed alarm in place. Reoriented patient with situation. JAYY De Jesus made aware of the fall. tank shop supervisor made aware as well. will continue to monitor.
[2023-09-03] MEDS: SYNTHROID 50 MCG PO (05:18)
[2023-09-03] MEDS: SYNTHROID 200 MCG PO (05:18)
[2023-09-03 08:27] LABS: Hematocrit 31.4 % (39.0-52.0); Hemoglobin 10.1 g/dL (13.0-18.0); Mean Corp Hgb Conc. 32.2 g/dL (33.0-37.0); Mean Corpuscular Hgb 32.2 pg (27.0-31.0); Mean Platelet Volume 10.2 fL (7.4-10.4); Platelet Count 224 10^3/uL (130-400); Red Blood Cell Count 3.14 10^6/uL (4.70-6.10); Red Cell Dist. Width 15.6 % (11.5-14.5)
[2023-09-03] MEDS: NOVOLOG FLEXPEN-LOW RESISTANCE SC (09:03)
[2023-09-03 09:04] LABS: Glucose - Point of Care 128 mg/dl (70-99)
[2023-09-03 09:05] LABS: Blood Urea Nitrogen 27 mg/dl (9-20); Calcium 8.6 mg/dl (8.4-10.2); Carbon Dioxide 36 mmol/L (22-30); Chloride 91 mmol/L (98-107); Estimated Creatinine Clearance 29 ml/min; Glucose 125 mg/dl (70-99); Potassium 3.4 mmol/L (3.5-5.1); Sodium 134 mmol/L (135-145); eGFR 39.26
[2023-09-03] MEDS: MEXITIL 150 MG PO ×3 (09:12→21:04)
[2023-09-03] MEDS: LIPITOR 40 MG PO (09:13)
[2023-09-03] MEDS: FEOSOL 325 MG PO (09:13)
[2023-09-03] MEDS: ZEBETA 7.5 MG PO (09:13)
[2023-09-03] MEDS: FOLTX 1 TABLET PO (09:14)
[2023-09-03] MEDS: ASPIR LOW (ENTERIC COATED) 81 MG PO (09:14)
[2023-09-03] MEDS: VITAMIN C 500 MG PO (09:14)
[2023-09-03] MEDS: PROSCAR 5 MG PO (09:14)
[2023-09-03] MEDS: LASIX 40 MG PO (09:14)
[2023-09-03] MEDS: COLACE 100 MG PO ×2 (09:14→21:03)
[2023-09-03] MEDS: THERAGRAN 1 TABLET PO (09:14)
--- NOTE | 2023-09-03 10:13 | W.PN.CARDCBS ---
Today's Communication / Plan
-
Patient has clear A-fib on EKG from July. He should be on lifelong Xarelto 15 mg daily.
Continue Lasix 40 mg p.o. daily. Weight is overall improved. If weight climbs may need to go on 40 mg p.o. twice daily.
Remains on bisoprolol. No SYDNI/ARB/Aldactone with renal insufficiency and recent stroke and hypotension.
Will sign off. Follow-up with [facility] [employer].
Impression / Plan
-
PCP: Dr. Vallejo
Hand Winder Dr. Moore at [facility]
Impression:
Acute on chronic HFrEF
Non-UT troponin elevation
Recent CVA
Paroxysmal atrial fibrillation noted on ECG in 07/2023
CKD 3b
CAD
s/p Roto KAREN LCX (4 x12 mm Promus) & LAD KAREN 06/2014 (3.5 x 12 mm Promus)
s/p LAD Roto KAREN� (3.5 x 15 mm [place] KAREN) 01/20
Ventricular bigeminy/PAT maintained on mexiletine
PVD
s/p iliac prosper stents 01/2007
s/p R&L EIA stents 08/2021
Renal artery stenosis
�s/p right renal artery stent 01/2007
Carotid stenosis
s/p Rt CEA 08/2017
Hypertension
Hyperlipidemia
Type 2 diabetes
Hypothyroidism
Bladder cancer
Cystoscopy, transurethral resection of bladder tumor, placement of 6 x 24 double-J stent, retrograde pyelogram 09/2018
Lexiscan nuclear stress test 01/22/2022: Normal perfusion, EF 52%
Carotid ultrasound 08/28/2022:�JEANNE 1 to 15% stenosis, LICA 50 to 79% stenosis
Echo 01/22/2022: EF 55 to 60%, mild MR, AV sclerosis
Echo 01/14/2023: EF 41%, global hypokinesis, moderate MR, moderate to severe TR, estimated PAP 48 mmHg
Plan:
-He has diuresed well. Continue Lasix p.o. 40 mg daily. If weight climbs may need to increase to 40 mg p.o. twice daily
-Known cardiomyopathy with EF 41% 01/14/2023.� Continues on bisoprolol.� Renal insufficiency and hypotension have limited uptitration of medical therapy.
-We have reviewed his records and he has a clear history of atrial fibrillation by EKG. With his history of stroke, he should be on Xarelto 15 mg daily. He remains in sinus rhythm currently.
-Continue mexiletine for atrial tachcardia.
-Heart rate is stable currently on review of telemetry.
-Non-UT troponin elevation in the setting of acute heart failure exacerbation noted with peak troponin 0.071. Recent stress test 01/30/2022 without ischemia.�
-Continue baby aspirin and atorvastatin.
HPI: Garret is an 83-year-old male with past medical history of chronic HFrEF, CAD, PVD, renal artery stenosis, carotid stenosis, hypertension, hyperlipidemia, type 2 diabetes, CKD, hypothyroidism, and bladder cancer who presented to ER for
evaluation of worsening shortness of breath. He had a recent fall and subacute CVA and had a rehab stay at [place] earlier this month. He has since returned home and has been having difficulty with ambulation. He also has had weight gain and
increased edema. Family was concerned that he was retaining fluid and brought him in for evaluation. On arrival to the ER, he was hypoxic and was placed on supplemental oxygen. He was found to have evidence of acute heart failure on chest x-ray
with severe pulmonary edema and small bilateral pleural effusions. ProBNP elevated at 12,500. He was started on IV Lasix and cardiology was consulted for evaluation. He is resting comfortably in bed this morning with no acute complaints.
Progress Note - Hand Winder
Subjective
Date of Service: September 03, 2023
denies chest pains/sob
Objective
Labs:
09/03/23 07:40
09/03/23 07:40
Labs
Hgb 10.1 g/dL (13.0-18.0) L 09/03/23 07:40
Hct 31.4 % (39.0-52.0) L 09/03/23 07:40
Plt Count 224 10^3/uL (130-400) 09/03/23 07:40
Sodium 134 mmol/L (135-145) L 09/03/23 07:40
Potassium 3.4 mmol/L (3.5-5.1) L 09/03/23 07:40
BUN 27 mg/dl (9-20) H 09/03/23 07:40
Creatinine 1.7 mg/dL (0.7-1.3) H 09/03/23 07:40
Glucose 125 mg/dl (70-99) H 09/03/23 07:40
Vital Signs and I&O:
Vital Signs
Temp Pulse Resp BP Pulse Ox
98.2 F 69 18 139/78 96
09/03/23 07:00 09/03/23 09:13 09/03/23 07:00 09/03/23 09:13 09/03/23 07:00
Vital Signs
Temp Pulse Resp BP Pulse Ox
98.2 F 69 18 139/78 96
09/03/23 07:00 09/03/23 09:13 09/03/23 07:00 09/03/23 09:13 09/03/23 07:00
Intake & Output
09/01/23 09/02/23 09/03/23 09/04/23
06:59 06:59 06:59 06:59
Intake Total 960 / 960 200 / 200
Output Total 350 / 350 1125 / 1125
Balance -350 / -350 -165 / -165 200 / 200
Physical Exam
Physical Exam
GEN: No distress, awake,
HEENT: supple, anicteric, mmm
LUNGS: CTA, no wheezes/rales
CV: Reg, S1/S2, 1/6 syst LSB, no gallop
ABD: soft, BS+, NT/ND
EXT: No edema
NEURO: Gross non-focal
SKIN: No rash
--- NOTE | 2023-09-03 12:08 | W.PN.NEPH.PH ---
Today's Communication / Plan
-
K
Assessment/Plan
-
Assessment:
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
CKD stage 3b -cr 1.4-2-wide range of cr
Atrial fibrillation with slow VR
ASCVD s/p carotid, cardiac, renal, and bilateral lower extremity stent
PAD with renal and lower extremity arterial stenting
EILEEN s/p stent in 2006
Carotid stenosis
Primary hypertension
Diabetes mellitus type II
Hypothyroidism
BPH
History of bladder cancer s/p TURBT
DVT proph: Xarelto
Plan:
-po lasix
-follow BMP
-replete K
-
-
Date of Service: September 03, 2023
CC / HPI / ROS
-
Chief Complaint:
CKD
History of Present Illness:
cr is stable at 1.7
K low
wt decreasing
hgb stable
BP stable, no fever
Review of Systems:
no cp or sob
feels better
Labs
-
Labs:
WBC 6.0 10^3/uL (4.8-10.8) 09/03/23 07:40
RBC 3.14 10^6/uL (4.70-6.10) L 09/03/23 07:40
Hgb 10.1 g/dL (13.0-18.0) L 09/03/23 07:40
Hct 31.4 % (39.0-52.0) L 09/03/23 07:40
Plt Count 224 10^3/uL (130-400) 09/03/23 07:40
Sodium 134 mmol/L (135-145) L 09/03/23 07:40
Potassium 3.4 mmol/L (3.5-5.1) L 09/03/23 07:40
Chloride 91 mmol/L (98-107) L 09/03/23 07:40
Carbon Dioxide 36 mmol/L (22-30) H 09/03/23 07:40
BUN 27 mg/dl (9-20) H 09/03/23 07:40
Creatinine 1.7 mg/dL (0.7-1.3) H 09/03/23 07:40
eGFR 39.26 09/03/23 07:40
Glucose 125 mg/dl (70-99) H 09/03/23 07:40
Calcium 8.6 mg/dl (8.4-10.2) 09/03/23 07:40
Pci-X-Oytcxscanoh Pept 00428 pg/ml 08/29/23 15:58
Albumin 3.0 g/dl (3.5-5.0) L 08/29/23 15:58
Physical Exam
-
Vital Signs:
Vital Signs
Temp Pulse Resp BP Pulse Ox
98.2 F 69 18 139/78 96
09/03/23 07:00 09/03/23 09:13 09/03/23 07:00 09/03/23 09:13 09/03/23 07:00
Cardiovascular:: Regular rate and rhythm
Respiratory:: Bilateral: Coarse
Lung Excursion:: Normal
Abdomen:: Nontender and Soft
Bowel Sounds:: Normal
Extremity Edema:: None: Bilateral:
[2023-09-03 13:48] LABS: Glucose - Point of Care 206 mg/dl (70-99)
[2023-09-03] MEDS: KCL 40 MEQ PO (14:28)
[2023-09-03] MEDS: NOVOLOG FLEXPEN-LOW RESISTANCE 2 UNITS SC (14:29)
--- NOTE | 2023-09-03 15:12 | W.PN.HOSP.TC ---
Today's Communication/Plan
-
Case management -Regarding discharge planning
Replace K
Assessment / Plan
Assessment / Plan
83 y/o male with shortness of breath. Complex medical course in the last 2 months. Patient had a shoulder replacement surgery on 07/09/2023 and was sent to rehab where he had a fall and hit his head. He was sent to [facility] where he was
diagnosed with a CVA and transferred to [place] rehab. Eventually he was discharged home. He was feeling weak and decreased urine output and shortness of breath therefore brought in to [facility].
Cardiovascular system S1-S2 irregular, systolic murmur apex
Chest decreased breath sounds at bases
Clear to auscultation
Soft nontender
no edema noted
Confused drowsy arousable
# Acute on chronic heart failure with reduced ejection fraction
Echo 01/14/2023-normal LV thickness, EF 41%, global hypokinesis, diastolic function indeterminate. Thickened mitral leaflets. Moderate MR. Moderate to severe TR. Pulmonary artery pressure 48 mmHg.
Patient not on any Lasix as outpatient
Primary marine superintendent is at [place]
Elevated proBNP noted
Continue IV Lasix
On beta-alex. Not a candidate for SYDNI inhibitor given renal insufficiency
weight better
Chest x-ray not correlating with patient's clinical findings
# Elevated troponin-non [place] type
#ASCVD-ASA,Statin
History of cardiac stents LAD and circumflex
# Paroxysmal atrial fibrillation
No mention of atrial fibrillation from the preop note from his outpatient marine superintendent.
EKG from 07/10/2023-looks like A-fib.
On Xarelto 2.5 BID as outpatient
Xarelto changed to 15 mg
On bisoprolol 7.5 mg daily
# Hypokalemia-replace potassium
# Hyponatremia-Continue Lasix
#Long QTC
#Insulin-dependent diabetes
On Lantus and sliding scale coverage
Lantus 8 to 10 units at nighttime at home
Blood sugars are rising therefore I will start Lantus at 10 units tonight.
# Enlarged prostate
Finasteride and tamsulosin
Changed tamsulosin to nighttime dosing
# CKD stage III
Has not seen nephrology in the past
# History of left reverse shoulder replacement July 2023
Xray noted.
Orthopedics recommends no weightbearing for 6 more weeks.
# CVA-aspirin and statin
Loop recorder implanted on July 16 2023
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
# Hyperlipidemia/Atherosclerosis-statin
# Hypothyroidism-Synthroid 250 mcg daily
# Anemia-Iron studies noted
Anemia of chronic disease
# Fall in Jul 2023
# History of bladder cancer history of TURBT
# History of peripheral vascular disease
Per previous notes carotid ultrasound August 2022 minimal right carotid stenosis and moderate left carotid stenosis.-This has been monitored for years.
Right carotid endarterectomy.
History of bilateral iliac stents
# History of renal artery stenosis with right renal artery stent
# Ex-smoker
# DVT prophylaxis-Xarelto
# Full code
Spoke to patient's and son at bedside
Discussed with case management
Discussed with nursing
Anticipated Discharge: Within 24 hours
Subjective/Interval History
-
Date of Service: September 03, 2023
Objective Data
-
Labs:
Laboratory Results
09/03/23
07:40
WBC 6.0
Hgb 10.1 L
Hct 31.4 L
Plt Count 224
Sodium 134 L
Potassium 3.4 L
Chloride 91 L
Carbon Dioxide 36 H
BUN 27 H
Creatinine 1.7 H
Glucose 125 H
Calcium 8.6
Vital Signs:
Vital Signs
Temp Pulse Resp BP Pulse Ox
97.7 F 65 18 101/66 94
09/03/23 11:00 09/03/23 11:00 09/03/23 11:00 09/03/23 11:00 09/03/23 11:00
I&O
09/02/23 09/03/23 09/04/23
06:59 06:59 06:59
Intake Total 960 / 960 200 / 200
Output Total 1125 / 1125
Balance -165 / -165 200 / 200
[2023-09-03 17:39] LABS: Glucose - Point of Care 185 mg/dl (70-99)
[2023-09-03] MEDS: NOVOLOG FLEXPEN-LOW RESISTANCE 1 UNITS SC (17:46)
[2023-09-03] MEDS: XARELTO 15 MG PO (17:46)
[2023-09-03 19:29] LABS: 24 Hour Urine Total Volume Random mL; Urine Collection Length Random hr; Urine Free Kappa Light Chains 539.93 mg/L (0.00-32.90); Urine Free Lambda Light Chains 68.08 mg/L (0.00-3.79)
[2023-09-03] MEDS: FLOMAX 0.800000000000000044 MG PO (21:03)
[2023-09-03] MEDS: PEPCID 20 MG PO (21:04)
[2023-09-03] MEDS: LANTUS 0.100000000000000006 UNITS SC (21:39)
[2023-09-03 21:58] LABS: Glucose - Point of Care 187 mg/dl (70-99)
[2023-09-04 03:03] VITALS: BP 108/64
[2023-09-04 06:00] VITALS: BMI 29.6
[2023-09-04] MEDS: SYNTHROID 200 MCG PO (06:26)
[2023-09-04] MEDS: SYNTHROID 50 MCG PO (06:26)
[2023-09-04 07:16] LABS: Glucose - Point of Care 130 mg/dl (70-99)
[2023-09-04 08:00] VITALS: BP 143/54
[2023-09-04 09:08] LABS: Blood Urea Nitrogen 26 mg/dl (9-20); Calcium 8.5 mg/dl (8.4-10.2); Carbon Dioxide 35 mmol/L (22-30); Chloride 92 mmol/L (98-107); Estimated Creatinine Clearance 29 ml/min; Glucose 130 mg/dl (70-99); Potassium 3.8 mmol/L (3.5-5.1); Sodium 135 mmol/L (135-145); eGFR 39.26
[2023-09-04] MEDS: NOVOLOG FLEXPEN-LOW RESISTANCE SC ×2 (10:07→12:38)
[2023-09-04] MEDS: ASPIR LOW (ENTERIC COATED) 81 MG PO (10:33)
[2023-09-04] MEDS: FEOSOL 325 MG PO (10:33)
[2023-09-04] MEDS: MEXITIL 150 MG PO ×3 (10:33→20:44)
[2023-09-04] MEDS: COLACE 100 MG PO ×2 (10:33→20:45)
[2023-09-04] MEDS: PROSCAR 5 MG PO (10:34)
[2023-09-04] MEDS: THERAGRAN 1 TABLET PO (10:34)
[2023-09-04] MEDS: LIPITOR 40 MG PO (10:34)
[2023-09-04] MEDS: LASIX 40 MG PO (10:34)
[2023-09-04] MEDS: VITAMIN C 500 MG PO (10:35)
[2023-09-04] MEDS: FOLTX 1 TABLET PO (10:35)
[2023-09-04] MEDS: ZEBETA 7.5 MG PO (10:35)
[2023-09-04 11:14] VITALS: BP 150/59
[2023-09-04 11:40] LABS: Glucose - Point of Care 137 mg/dl (70-99)
[2023-09-04 12:33] LABS: Albumin 2.83 g/dL (3.75-5.01); Alpha 1 Globulin 0.45 g/dL (0.19-0.46); Alpha 2 Globulin 0.97 g/dL (0.48-1.05); SPEP IFE Reflex IFE Done; Total Protein-Electrophoresis 5.9 g/dL (6.3-8.2)
[2023-09-04 13:38] LABS: IgA 256 mg/dL (68-408); IgG 1040 mg/dL (768-1632); IgM 53 mg/dL (35-263)
--- NOTE | 2023-09-04 14:25 | W.PN.HOSP.TC ---
Addendum entered and electronically signed by Shaniqua Moses MD 09/04/23 14:37:
SPEP noted- OP appointment with DR Juan F tesfaye, number included on the DC papers
Original Note:
Today's Communication/Plan
-
Discharge
Assessment / Plan
Assessment / Plan
83 y/o male with shortness of breath. Complex medical course in the last 2 months. Patient had a shoulder replacement surgery on 07/09/2023 and was sent to rehab where he had a fall and hit his head. He was sent to [facility] where he was
diagnosed with a CVA and transferred to [place] rehab. Eventually he was discharged home. He was feeling weak and decreased urine output and shortness of breath therefore brought in to [facility].
Cardiovascular system S1-S2 irregular, systolic murmur apex
Chest decreased breath sounds at bases
Clear to auscultation
Soft nontender
No edema noted
Confused drowsy arousable
# Acute on chronic heart failure with reduced ejection fraction
Echo 01/14/2023-normal LV thickness, EF 41%, global hypokinesis, diastolic function indeterminate. Thickened mitral leaflets. Moderate MR. Moderate to severe TR. Pulmonary artery pressure 48 mmHg.
Patient not on any Lasix as outpatient
Primary leaf size picker is at [place]
Elevated proBNP noted
Lasix changed to PO
On beta-alex. Not a candidate for SYDNI inhibitor given renal insufficiency
weight better 166.7 lbs today - which is all time low for him per .
Chest x-ray read not correlating with patient's clinical findings at all .
All objective signs like the patient's weight, him not requiring any oxygen examination are all not correlating with the patient's chest x-ray reviewed. To me the chest x-ray also looks better.
# Elevated troponin-non [place] type
#ASCVD-ASA,Statin
History of cardiac stents LAD and circumflex
# Paroxysmal atrial fibrillation
No mention of atrial fibrillation from the preop note from his outpatient leaf size picker.
EKG from 07/10/2023-looks like A-fib.
On Xarelto 2.5 BID as outpatient
Xarelto changed to 15 mg
On bisoprolol 7.5 mg daily
# Hypokalemia-replace potassium
# Hyponatremia-Continue Lasix
#Long QTC
#Insulin-dependent diabetes
On Lantus and sliding scale coverage
Lantus 8 to 10 units at nighttime at home
Blood sugars are rising therefore I will start Lantus at 10 units tonight.
# Enlarged prostate
Finasteride and tamsulosin
Changed tamsulosin to nighttime dosing
# CKD stage III
Has not seen nephrology in the past
# History of left reverse shoulder replacement July 2023
Xray noted.
Orthopedics recommends no weightbearing for 6 more weeks.
# CVA-aspirin and statin
Loop recorder implanted on July 16 2023
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
# Hyperlipidemia/Atherosclerosis-statin
# Hypothyroidism-Synthroid 250 mcg daily
# Anemia-Iron studies noted
Anemia of chronic disease
# Fall in Jul 2023
# History of bladder cancer history of TURBT
# History of peripheral vascular disease
Per previous notes carotid ultrasound August 2022 minimal right carotid stenosis and moderate left carotid stenosis.-This has been monitored for years.
Right carotid endarterectomy.
History of bilateral iliac stents
# History of renal artery stenosis with right renal artery stent
# Ex-smoker
# DVT prophylaxis-Xarelto
# Full code
Spoke to patient's at bedside
Discussed with case management
Discussed with nursing
Discussed with nephrology
Patient has been accepted to [facility]
Okay for discharge
Encouraged patient to eat more. P.o. intake is not that great. He realizes that he needs to eat better and also cooperate with physical therapy so that he can eventually get home.
Discharge time 32 min
Anticipated Discharge: Today
Subjective/Interval History
-
Date of Service: September 04, 2023
Objective Data
-
Labs:
Laboratory Results
09/04/23
07:32
Sodium 135
Potassium 3.8
Chloride 92 L
Carbon Dioxide 35 H
BUN 26 H
Creatinine 1.7 H
Glucose 130 H
Calcium 8.5
Vital Signs:
Vital Signs
Temp Pulse Resp BP Pulse Ox
97.6 F 66 20 150/59 96
09/04/23 11:14 09/04/23 11:14 09/04/23 11:14 09/04/23 11:14 09/04/23 11:14
I&O
09/03/23 09/04/23 09/05/23
06:59 06:59 06:59
Intake Total 200 / 200 240 / 240
Output Total 100 / 100
Balance 200 / 200 140 / 140
--- NOTE | 2023-09-04 14:34 | W.DS.TRANS ---
Addendum entered and electronically signed by Shaniqua Moses MD 09/04/23 14:46:
Dictation- [id number]
Original Note:
DC Summary - Baseball Winder
-
Discharge Instructions:
Discharge Diagnosis/Procedures CHF, acute on chronic with reduced ejection
fraction, ASCVD, paroxysmal atrial fibrillation,
hypokalemia, hyponatremia, long QTc, diabetes,
enlarged prostate, CKD stage IIIb, history of
reverse shoulder replacement on the left side,
CVA, history of ventricular bigeminy,
hyperlipidemia, atherosclerosis, hypothyroidism,
anemia PVD, history of right carotid
endarterectomy, history of bilateral iliac
stents, renal artery stenosis with history of
stent, ex-smoker
Diet Restrict fluids to 64 oz,2 Gram Sodium
Activity As tolerated,With assistance
Driving Restrictions No driving
Other Services OT,PT
Specialty Instructions Weigh Daily
Instructions: *PCP/Other Bond Clerk Heart Failure Instructions
Stand-Alone Forms:
Changes to Home Medications: Yes
Discharge Medications:
DC Medications w/original date entered in [employer]
ascorbic acid (vitamin C) 500 mg tablet (Vitamin C) 500 mg PO DAILY supplement #30 tabs 08/09/23
aspirin 81 mg tablet,delayed release 81 mg PO DAILY Blood clot prevention/tx #30 tabs 08/09/23
atorvastatin 40 mg tablet 40 mg PO DAILY High cholesterol #30 tabs 08/09/23
bisoprolol fumarate 5 mg tablet 7.5 mg PO DAILY Blood pressure #30 tabs 08/09/23
docusate sodium 100 mg capsule 100 mg PO BID Constipation #60 caps 08/09/23
famotidine 20 mg tablet 20 mg PO HS gerd #30 tabs 08/09/23
finasteride 5 mg tablet 5 mg PO DAILY bph #30 tabs 08/09/23
folic acid-vit B6-vit B12 2.5 mg-25 mg-2 mg tablet (WesTab Max) 1 tab PO DAILY supplement #30 tabs 08/09/23
levothyroxine 200 mcg tablet 200 mcg PO DAILY AT 0700 hypothyroid #30 tabs 08/09/23
mexiletine 150 mg capsule 150 mg PO TID supplement #90 caps 08/09/23
multivitamin with folic acid 400 mcg tablet (Tab-A-Laurie) 1 tab PO DAILY supplement #30 tabs 08/09/23
clotrimazole 1 % topical cream (Athlete's Foot (clotrimazole)) 1 applic topical BID groin/bed sore 08/29/23
ergocalciferol (vitamin D2) 1,250 mcg (50,000 unit) capsule 1,250 mcg PO FR supplement 08/29/23
ferrous sulfate 325 mg (65 mg iron) tablet (FeroSul) 325 mg PO DAILY anemia #0 tabs 09/04/23
furosemide 40 mg tablet 40 mg PO DAILY Fluid retention/Swelling #0 tabs 09/04/23
insulin glargine 100 unit/mL (3 mL) subcutaneous pen (Lantus Solostar U-100 Insulin) 10 unit (0.1 mL) SC HS Diabetes #0 mL 09/04/23
levothyroxine 50 mcg tablet 50 mcg PO DAILY@0700 hypothyroid #30 tabs 09/04/23
rivaroxaban 15 mg tablet (Xarelto) 15 mg PO QPM Blood clot prevention/tx #0 tabs 09/04/23
tamsulosin 0.4 mg capsule 0.8 mg PO HS bph #30 caps 09/04/23
Home Medication Changes
Lasix is new
Iron sulfate new
Xarelto changed from 2.5 twice daily to 15 mg at night
Pending Results: No
--- NOTE | 2023-09-04 16:09 | W.PN.NEPH.PH ---
Today's Communication / Plan
-
ok for d/c to rehab
Assessment/Plan
-
Assessment:
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
CKD stage 3b -cr 1.4-2-wide range of cr
Atrial fibrillation with slow VR
ASCVD s/p carotid, cardiac, renal, and bilateral lower extremity stent
PAD with renal and lower extremity arterial stenting
EILEEN s/p stent in 2006
Carotid stenosis
Primary hypertension
Diabetes mellitus type II
Hypothyroidism
BPH
History of bladder cancer s/p TURBT
DVT proph: Xarelto
Plan:
-stable renal function
cont po lasix 40mg daily and FR 48 ounces/day
-follow BMP in 1 week
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
ok for d/c to rehab
-
-
Date of Service: September 04, 2023
CC / HPI / ROS
-
Chief Complaint:
CKD
History of Present Illness:
cr is stable at 1.7
K normal
wt decreasing
hgb stable
BP stable, no fever
Review of Systems:
no cp or sob
feels better
Labs
-
Labs:
WBC 6.0 10^3/uL (4.8-10.8) 09/03/23 07:40
RBC 3.14 10^6/uL (4.70-6.10) L 09/03/23 07:40
Hgb 10.1 g/dL (13.0-18.0) L 09/03/23 07:40
Hct 31.4 % (39.0-52.0) L 09/03/23 07:40
Plt Count 224 10^3/uL (130-400) 09/03/23 07:40
Sodium 135 mmol/L (135-145) 09/04/23 07:32
Potassium 3.8 mmol/L (3.5-5.1) 09/04/23 07:32
Chloride 92 mmol/L (98-107) L 09/04/23 07:32
Carbon Dioxide 35 mmol/L (22-30) H 09/04/23 07:32
BUN 26 mg/dl (9-20) H 09/04/23 07:32
Creatinine 1.7 mg/dL (0.7-1.3) H 09/04/23 07:32
eGFR 39.26 09/04/23 07:32
Glucose 130 mg/dl (70-99) H 09/04/23 07:32
Calcium 8.5 mg/dl (8.4-10.2) 09/04/23 07:32
Zct-X-Jgozisoofbk Pept 31821 pg/ml 08/29/23 15:58
Albumin 3.0 g/dl (3.5-5.0) L 08/29/23 15:58
Physical Exam
-
Vital Signs:
Vital Signs
Temp Pulse Resp BP Pulse Ox
97.6 F 66 20 150/59 96
09/04/23 11:14 09/04/23 11:14 09/04/23 11:14 09/04/23 11:14 09/04/23 11:14
Cardiovascular:: Regular rate and rhythm
Respiratory:: Bilateral: CTA
Lung Excursion:: Normal
Abdomen:: Nontender and Soft
Extremity Edema:: None: Bilateral:
Quiroz Catheter: No
[2023-09-04 16:29] VITALS: BP 101/61
--- NOTE | 2023-09-04 16:33 | CM ---
CM following re: d/c planning
Chart reviewed
Pt is medically stable for d/c and will be transferred to [facility]
CM sent referrals via care port to , [facility], & [facility] was the facility that had bed availability
Authorization determination details provided below
CM met with the patient & his family at bedside to discuss d/c details
LOMN & inhouse transport form completed and provided to the --transport confirmed for 6:30pm
IMM also reviewed and copy provided to the patient
CM sent a TT message to [facility]/admissions at [facility] to provide auth details and p/u time
PLAN; d/c to [facility]
Report: [phone]

CM spoke with Madina at [facility]
Pt approved for 6 days skilled level care
SOC 09/04/23 with NRD 09/09/23
Auth.# [id number]
Concurrent reviews can be called into
[2023-09-04 16:52] LABS: Glucose - Point of Care 204 mg/dl (70-99)
[2023-09-04] MEDS: XARELTO 15 MG PO (17:08)
[2023-09-04] MEDS: NOVOLOG FLEXPEN-LOW RESISTANCE 2 UNITS SC (17:09)
[2023-09-04 19:30] VITALS: BP 103/74
[2023-09-04] MEDS: FLOMAX 0.800000000000000044 MG PO (20:44)
[2023-09-04] MEDS: PEPCID 20 MG PO (20:45)
[2023-09-04 21:21] LABS: Glucose - Point of Care 172 mg/dl (70-99)
[2023-09-04] MEDS: LANTUS 0.100000000000000006 UNITS SC (21:25)
--- NOTE | 2023-09-04 22:19 | PTCARENOTE ---
Patient picked up by EMS to [facility]. Patient dressed and ready with clean brief and all belongings.
--- NOTE | 2023-09-05 14:29 | CM ---
Received phone call from Cuca in [facility]; request to know where patient was discharged to yesterday- told her [facility]. They will follow the patient when he is discharged from SNF.
== END 2023-09-04 22:23 | DRG 291 ==
LOC: 4 EAST ACU 19:14
PROVIDERS: Emergency Medicine; Internal Medicine; Nurse Practitioner; Specialist; ADMITTING PHYSICIAN Hospitalist; ATTENDING PHYSICIAN Hospitalist; CONSULT PHYSICIAN Internal Medicine Cardiovascular Disease; CONSULT PHYSICIAN Student in an Organized Health Care Education/Training Program; EMERGENCY PHYSICIAN Emergency Medicine; FAMILY PHYSICIAN Family Medicine
DX: I13.0 Hypertensive heart and chronic kidney disease with heart failure and stage 1 through stage 4 chronic kidney disease, or unspecified chronic kidney disease (principal); I50.23 Acute on chronic systolic (congestive) heart failure; E87.1 Hypo-osmolality and hyponatremia; I42.9 Cardiomyopathy, unspecified; E11.22 Type 2 diabetes mellitus with diabetic chronic kidney disease; E11.51 Type 2 diabetes mellitus with diabetic peripheral angiopathy without gangrene; E78.00 Pure hypercholesterolemia, unspecified; N18.32 Chronic kidney disease, stage 3b; I25.10 Atherosclerotic heart disease of native coronary artery without angina pectoris; N40.1 Benign prostatic hyperplasia with lower urinary tract symptoms; I70.1 Atherosclerosis of renal artery; I65.29 Occlusion and stenosis of unspecified carotid artery; R33.8 Other retention of urine; I48.0 Paroxysmal atrial fibrillation; R09.02 Hypoxemia; E03.9 Hypothyroidism, unspecified; D63.8 Anemia in other chronic diseases classified elsewhere; E87.6 Hypokalemia; I5A Non-ischemic myocardial injury (non-traumatic); M79.89 Other specified soft tissue disorders; Z96.612 Presence of left artificial shoulder joint; Z11.52 Encounter for screening for COVID-19; Z86.73 Personal history of transient ischemic attack (TIA), and cerebral infarction without residual deficits; Z87.891 Personal history of nicotine dependence; Z88.8 Allergy status to other drugs, medicaments and biological substances; Z79.82 Long term (current) use of aspirin; Z79.4 Long term (current) use of insulin; Z79.890 Hormone replacement therapy; Z85.51 Personal history of malignant neoplasm of bladder; Z95.5 Presence of coronary angioplasty implant and graft; Z82.49 Family history of ischemic heart disease and other diseases of the circulatory system; Z79.01 Long term (current) use of anticoagulants; Z91.81 History of falling
CPT/HCPCS: 51798; 71046; 73030; 76770; 80048; 80053; 81003; 81015; 82306; 82570; 82728; 82784; 82962; 83036; 83521; 83540; 83550; 83735; 83880; 84155; 84156; 84165; 84484; 85025; 85027; 86334; 86335; 87502; 87811; 92526; 92610; 93005; 97162; 97166; 97530; 97535; 99285

== ENCOUNTER → 2023-09-06 10:05 | Outpatient (REF) | payer OTHER, SELFPAY ==
[2023-09-06 13:17] LABS: % Basophils 0.5 % (0-2); % Eosinophils 3.8 % (0-6); % Immature Granulocytes 0.5 % (0-0.5); % Lymphocytes 17.3 % (20.5-51.1); % Monocytes 11.8 % (1.7-9.3); % Neutrophils 66.1 % (42.2-75.2); Absolute Eosinophils 0.2 10^3/uL (0-0.7); Absolute Lymphocytes 1.1 10^3/uL (1.2-3.4); Absolute Monocytes 0.7 10^3/uL (0.1-0.6); Absolute Neutrophils 4.1 10^3/uL (1.4-6.5); Hematocrit 29.2 % (39.0-52.0); Hemoglobin 9.1 g/dL (13.0-18.0); Mean Corp Hgb Conc. 31.2 g/dL (33.0-37.0); Mean Corpuscular Hgb 31.6 pg (27.0-31.0); Mean Corpuscular Volume 101.4 fL (80.0-94.0); Mean Platelet Volume 10.2 fL (7.4-10.4); Nucleated Red Blood Cells % 0 % (-); Platelet Count 265 10^3/uL (130-400); Red Blood Cell Count 2.88 10^6/uL (4.70-6.10); Red Cell Dist. Width 15.7 % (11.5-14.5); White Blood Cell Count 6.1 10^3/uL (4.8-10.8)
[2023-09-06 13:26] LABS: Blood Urea Nitrogen 25 mg/dl (9-20); Carbon Dioxide 33 mmol/L (22-30); Chloride 97 mmol/L (98-107); Glucose 74 mg/dl (70-99); Potassium 3.8 mmol/L (3.5-5.1); Sodium 134 mmol/L (135-145); eGFR 36.66
== END ==
LOC: OLABP 10:05
PROVIDERS: ATTENDING PHYSICIAN Family Medicine
DX: I48.0 Paroxysmal atrial fibrillation (principal); E87.1 Hypo-osmolality and hyponatremia; E11.9 Type 2 diabetes mellitus without complications; N40.0 Benign prostatic hyperplasia without lower urinary tract symptoms; I50.20 Unspecified systolic (congestive) heart failure; N18.32 Chronic kidney disease, stage 3b; I34.0 Nonrheumatic mitral (valve) insufficiency; E78.5 Hyperlipidemia, unspecified; D64.9 Anemia, unspecified; E03.9 Hypothyroidism, unspecified
CPT/HCPCS: 36415; 80048; 85025

== ENCOUNTER → 2023-09-09 11:01 | Outpatient (REF) | payer OTHER, SELFPAY ==
[2023-09-09 11:29] LABS: % Basophils 0.6 % (0-2); % Eosinophils 3.7 % (0-6); % Immature Granulocytes 0.3 % (0-0.5); % Lymphocytes 18.5 % (20.5-51.1); % Monocytes 12.8 % (1.7-9.3); % Neutrophils 64.1 % (42.2-75.2); Absolute Eosinophils 0.2 10^3/uL (0-0.7); Absolute Lymphocytes 1.2 10^3/uL (1.2-3.4); Absolute Monocytes 0.8 10^3/uL (0.1-0.6); Absolute Neutrophils 4.1 10^3/uL (1.4-6.5); Hematocrit 30.5 % (39.0-52.0); Hemoglobin 9.7 g/dL (13.0-18.0); Mean Corp Hgb Conc. 31.8 g/dL (33.0-37.0); Mean Corpuscular Volume 100.7 fL (80.0-94.0); Nucleated Red Blood Cells % 0 % (-); Platelet Count 262 10^3/uL (130-400); Red Blood Cell Count 3.03 10^6/uL (4.70-6.10); Red Cell Dist. Width 15.6 % (11.5-14.5); White Blood Cell Count 6.4 10^3/uL (4.8-10.8)
[2023-09-09 11:39] LABS: Blood Urea Nitrogen 21 mg/dl (9-20); Calcium 8.3 mg/dl (8.4-10.2); Carbon Dioxide 33 mmol/L (22-30); Chloride 95 mmol/L (98-107); Glucose 157 mg/dl (70-99); Potassium 3.5 mmol/L (3.5-5.1); Sodium 136 mmol/L (135-145); eGFR 36.66
== END ==
LOC: OLABP 11:01
PROVIDERS: ATTENDING PHYSICIAN Family Medicine
DX: E11.9 Type 2 diabetes mellitus without complications (principal); E87.1 Hypo-osmolality and hyponatremia; I48.0 Paroxysmal atrial fibrillation; I13.0 Hypertensive heart and chronic kidney disease with heart failure and stage 1 through stage 4 chronic kidney disease, or unspecified chronic kidney disease; I25.10 Atherosclerotic heart disease of native coronary artery without angina pectoris; D64.9 Anemia, unspecified; E03.9 Hypothyroidism, unspecified; I34.0 Nonrheumatic mitral (valve) insufficiency
CPT/HCPCS: 36415; 80048; 85025

== ENCOUNTER → 2023-09-18 11:58 | Outpatient (REF) | payer OTHER, SELFPAY ==
[2023-09-18 13:29] LABS: % Basophils 0.9 % (0-2); % Eosinophils 3.5 % (0-6); % Immature Granulocytes 0.4 % (0-0.5); % Lymphocytes 26.3 % (20.5-51.1); % Monocytes 12.7 % (1.7-9.3); % Neutrophils 56.2 % (42.2-75.2); Absolute Basophils 0.1 10^3/uL (0-0.2); Absolute Eosinophils 0.2 10^3/uL (0-0.7); Absolute Lymphocytes 1.4 10^3/uL (1.2-3.4); Absolute Monocytes 0.7 10^3/uL (0.1-0.6); Hematocrit 32.2 % (39.0-52.0); Mean Corp Hgb Conc. 31.1 g/dL (33.0-37.0); Mean Corpuscular Volume 99.7 fL (80.0-94.0); Mean Platelet Volume 11.1 fL (7.4-10.4); Nucleated Red Blood Cells % 0 % (-); Platelet Count 215 10^3/uL (130-400); Red Blood Cell Count 3.23 10^6/uL (4.70-6.10); Red Cell Dist. Width 15.9 % (11.5-14.5); White Blood Cell Count 5.4 10^3/uL (4.8-10.8)
[2023-09-18 13:36] LABS: Blood Urea Nitrogen 18 mg/dl (9-20); Calcium 8.7 mg/dl (8.4-10.2); Carbon Dioxide 34 mmol/L (22-30); Chloride 97 mmol/L (98-107); Glucose 142 mg/dl (70-99); Potassium 4.1 mmol/L (3.5-5.1); Sodium 134 mmol/L (135-145); eGFR 36.66
== END ==
LOC: OLABP 11:58
PROVIDERS: ATTENDING PHYSICIAN Family Medicine
DX: I47.19 Other supraventricular tachycardia (principal); I13.0 Hypertensive heart and chronic kidney disease with heart failure and stage 1 through stage 4 chronic kidney disease, or unspecified chronic kidney disease; I25.10 Atherosclerotic heart disease of native coronary artery without angina pectoris; I48.0 Paroxysmal atrial fibrillation; E87.1 Hypo-osmolality and hyponatremia; E11.9 Type 2 diabetes mellitus without complications; N40.0 Benign prostatic hyperplasia without lower urinary tract symptoms; N18.32 Chronic kidney disease, stage 3b; E78.5 Hyperlipidemia, unspecified; D64.9 Anemia, unspecified; I50.20 Unspecified systolic (congestive) heart failure; I34.0 Nonrheumatic mitral (valve) insufficiency; I73.9 Peripheral vascular disease, unspecified; Z86.73 Personal history of transient ischemic attack (TIA), and cerebral infarction without residual deficits; Z85.51 Personal history of malignant neoplasm of bladder; E03.9 Hypothyroidism, unspecified
CPT/HCPCS: 36415; 80048; 85025

== ENCOUNTER 2024-03-29 19:37 | Inpatient (IN) | payer OTHER, SELFPAY ==
[2024-03-29] VITALS (16 sets, daily range): BP systolic 99–166; BP diastolic 47–90; PULSE 61–69; BMI 27.6; BMI 26.7
[2024-03-29 15:59] LABS: ALT (SGPT) 27 U/L (0-50); AST (SGOT) 31 U/L (17-59); Albumin 3.5 g/dl (3.5-5.0); Alkaline Phosphatase 85 U/L (38-126); Blood Urea Nitrogen 31 mg/dl (9-20); Calcium 8.9 mg/dl (8.4-10.2); Carbon Dioxide 21 mmol/L (22-30); Chloride 106 mmol/L (98-107); Estimated Creatinine Clearance 23 ml/min; Glucose 159 mg/dl (70-99); Lipase 39 U/L (23-300); Potassium 4.5 mmol/L (3.5-5.1); Sodium 139 mmol/L (135-145); Total Bilirubin 0.5 mg/dl (0.2-1.3); Total Protein 6.1 g/dl (6.3-8.2)
[2024-03-29 15:59] LABS: Urine Albumin Trace (Neg - Trace); Urine Bilirubin Negative (Negative); Urine Character Clear (Clear); Urine Color Yellow; Urine Glucose Negative (Negative); Urine Ketone Negative (Negative); Urine Leukocyte Negative (Negative); Urine Nitrite Negative (Negative); Urine Occult Blood Negative (Negative); Urine Urobilinogen Negative (Neg - 1+); Urine pH 6.5 (5.0-9.0)
[2024-03-29 16:10] LABS: % Basophils 0.2 % (0-2); % Eosinophils 0.4 % (0-6); % Immature Granulocytes 0.6 % (0-0.5); % Lymphocytes 11.2 % (20.5-51.1); % Monocytes 8.2 % (1.7-9.3); % Neutrophils 79.4 % (42.2-75.2); Absolute Immature Granulocytes 0.1 10^3/uL (0-0.05); Absolute Lymphocytes 0.9 10^3/uL (1.2-3.4); Absolute Monocytes 0.7 10^3/uL (0.1-0.6); Absolute Neutrophils 6.5 10^3/uL (1.4-6.5); Hematocrit 20.7 % (39.0-52.0); Hemoglobin 6.8 g/dL (13.0-18.0); Mean Corp Hgb Conc. 32.9 g/dL (33.0-37.0); Mean Corpuscular Hgb 31.6 pg (27.0-31.0); Mean Corpuscular Volume 96.3 fL (80.0-94.0); Nucleated Red Blood Cells % 0 % (-); Platelet Count 237 10^3/uL (130-400); Red Blood Cell Count 2.15 10^6/uL (4.70-6.10); Red Cell Dist. Width 14.3 % (11.5-14.5); White Blood Cell Count 8.2 10^3/uL (4.8-10.8)
--- NOTE | 2024-03-29 17:25 | ED.GENMED ---
History of Present Illness
General
Chief Complaint: Abdominal Symptoms
Source: patient and family
Exam Limitations: none
Time Seen by Provider: 03/29/24 14:54
Nursing documentation reviewed up to this point in time: agreed with
History of Present Illness
History of Present Illness:
84-year-old male past medical history of A-fib currently on Xarelto, CAD hypertension hyperlipidemia, diabetes presenting to the emergency department today with concerns of decreased bowel movements over the past few days difficulty with urination
over the past day or so as well as nausea and vomiting that developed earlier today. He denies any fevers or history of abdominal surgeries. Denies any bleeding.
Past History
Past History
ED Past Medical History: CAD, HTN, Hypercholesterolemia and NIDDM
ED Past Surgical History: Cardiac (Loop recorder.) and Orthopedic (Shoulder surgery 07/09)
Social History
Tobacco: Former smoker
Personal:
Living: with family
Family History
Family History: Other (Noncontributory)
Review of Systems
Review of Systems
Allergies reviewed?: Yes
All Other Systems: ROS reviewed and negative except as documented in HPI and ROS
Phy Exam
Physical Exam
Physical Exam:
GENERAL: Alert , in no apparent distress
EYE: pupils equal and reactive
NECK: Supple, no significant adenopathy.
ENT: o/p clr, mmm.
CARDIAC: Regular rate and rhythm .
LUNGS: Clear breath sounds bilaterally, no acute respiratory distress, no wheezes/rales/rhonchi
ABDOMEN: Vague diffuse abdominal pain slight distention without focal tenderness, no r/g, no cvat
NEUROLOGICAL: Alert and oriented, no focal neuro deficits
SKIN: Warm and dry, skin intact.
MUSCULOSKELETAL: No edema, well perfused.
PSYCH: Normal and appropriate interaction.
Course
Orders/Labs/Results
Orders:
Orders
03/29/24 15:04
CT Abd/Pel (IV only)-DH only Urgent
Comment:
Reason For Exam: diffuse abd pain
Bladder Scan- Treatment ONCE
03/29/24 15:29
Complete Blood Count/With Diff Urgent
Comprehensive Metabolic Panel Urgent
Lipase Urgent
03/29/24 15:38
Urinalysis Reflex To Culture Urgent
Date Specimen was Collected: 03/29/24
Time Specimen was Collected: 15:36
03/29/24 15:55
Quiroz [Quiroz Placement- Treatment] ONCE
Reason for insertion: Acute Retention
03/29/24 17:38
* Blood Bank Products Urgent
Blood Bank Products: *Packed RBC Leuko(PRBC's)
Quantity: 1
Transfuse Today: Yes
Reason: Anemia
03/29/24 17:41
Type And Crossmatch Urgent
03/29/24 18:59
Admit/Transfer Patient As Directed
Co-Sign Provider:
Level of Care: Inpatient admission
Assign to:: Medical/Surgical
Physician / Group: Reta
Diagnosis: GI bleed
Reason for Hospitalization: GI bleed and constipation
Expected length of stay greater than two midnights?: Yes
ELOS- Estimated Length of Stay in days: 3
I certify the patient meets the requirements for IP care: Yes
PRN Pain Medication Management As Directed
May give lesser potent ordered pain med per pt: Yes
preference::
Protocol:: Medication orders for pain may be administered in a
manner that supports deferring to patient preference
when the pt is:
- Requesting an ordered lesser potent pain medication.
Least to most potent pain medications are defined
as: acetaminophen < NSAID < tramadol < opioids
(morphine, oxycodone, hydromorphone).
- Requesting a lesser dose of the same medication IF
ORDERED.
- Requesting a less intrusive route of administration
if both routes are prescribed by the provider (PO <
IV).
03/29/24 19:00
Code Status As Directed
Resuscitation Status: Full Code
03/29/24 19:04
UROLOGY CONSULT Routine
Consulting Provider: Brayan Dumont
Was physician already notified: Yes
Comment: uriine retention
03/29/24 20:00
Docusate W/Senna [Senokot-S] 2 tablet PO BID
03/29/24 20:59
Dextrose 50%-Water [Dextrose 50% Syringe] 12.5 grams IV [id number] PRN
Glucagon [GlucaGen] 1 mg IM PRN PRN
03/29/24 20:59
GASTROINTESTINAL CONSULT Routine
Consulting Provider: Deepak Castrejon
Was physician already notified: Yes
Reason for consult: GI bleed
Activity As Directed
Activity Level: Out of Bed-Early Mobility
Bedside Glucose Monitoring As Directed
Frequency: AC&HS
Additional Instructions:: Change to q6h if pt on TPN, tube feeding or not eating
INT (Intravenous Needle Therapy) As Directed
Comment: Place 2 IV catheters of the largest bore possible until stable
Orthostatic Vital Signs As Directed
Orthostatic VS Frequency: Now
Comment: then every four hours for twenty-four hours
Pneumatic Compression Sleeves As Directed
Type: Knee high
Vital Signs As Directed
Frequency: Per unit guidelines
DX Deep Vein Thrombosis Video Routine
03/29/24 22:00
Pantoprazole [Protonix IV] 40 mg IV Q12
03/30/24 00:00
Mexiletine [Mexitil] 150 mg PO Q8
03/30/24 00:24
H&H Q8H
03/30/24 06:00
Levothyroxine [Synthroid] 200 mcg PO DAILY@0600
Levothyroxine [Synthroid] 50 mcg PO DAILY@0600
03/30/24 07:30
Insulin Aspart Corrective Low [Novolog Flexpen-Low Resistance] See Protocol SC AC
03/30/24 07:38
Basic Metabolic Panel IN AM
Complete Blood Count/No Diff IN AM
Ferritin IN AM
Folate IN AM
Glycohemoglobin (HgbA1c) IN AM
H&H Q8H
Iron IN AM
Magnesium IN AM
TSH IN AM
Total Iron Binding IN AM
Vitamin B12 IN AM
03/30/24 08:00
Bisoprolol Fumarate [Zebeta] 5 mg PO DAILY
Bumetanide [Bumex] 0.5 mg PO DAILY
FOLic ACID [Folvite] 2 mg PO DAILY
Finasteride [Proscar] 5 mg PO DAILY
Tamsulosin [Flomax] 0.4 mg PO DAILY
03/30/24 18:00
Atorvastatin [Lipitor] 40 mg PO QPM
Abnormal Lab Results
03/29/24 03/29/24
15:29 17:41
RBC 2.15 L 10^6/uL
(4.70-6.10)
Hgb 6.8 L* g/dL
(13.0-18.0)
Hct 20.7 L* %
(39.0-52.0)
MCV 96.3 H fL
(80.0-94.0)
MCH 31.6 H pg
(27.0-31.0)
MCHC 32.9 L g/dL
(33.0-37.0)
Abs Immat Gran (auto) 0.1 H 10^3/uL
(0-0.05)
Absolute Lymphs (auto) 0.9 L 10^3/uL
(1.2-3.4)
Absolute Monos (auto) 0.7 H 10^3/uL
(0.1-0.6)
Immature Gran % 0.6 H %
(0-0.5)
Neutrophils % 79.4 H %
(42.2-75.2)
Lymphocytes % 11.2 L %
(20.5-51.1)
Carbon Dioxide 21 L mmol/L
(22-30)
BUN 31 H mg/dl
(9-20)
Creatinine 2.0 H mg/dL
(0.7-1.3)
Glucose 159 H mg/dl
(70-99)
Total Protein 6.1 L g/dl
(6.3-8.2)
Crossmatch IS Only See Detail
03/29/24 15:29
03/29/24 15:29
Vital Signs
Initial and Last Documented VS:
Initial Vital Signs
Temp Pulse Resp BP Pulse Ox
98.5 F 79 16 99/60 99
03/29/24 13:58 03/29/24 13:58 03/29/24 13:58 03/29/24 13:58 03/29/24 13:58
Last Documented Vital Signs
Temp Pulse Resp BP Pulse Ox
98.9 F 56 17 64/40 98
03/30/24 08:20 03/30/24 08:20 03/30/24 08:20 03/30/24 08:20 03/30/24 08:20
MDM/Problems Addressed
MDM/Problems Addressed:
84-year-old male past medical history of A-fib currently on Xarelto, CAD hypertension hyperlipidemia, diabetes presenting to the emergency department today with concerns of decreased bowel movements over the past few days difficulty with urination
over the past day or so as well as nausea and vomiting that developed earlier today. Upon arrival patient in no obvious distress does have some vague abdominal to palpation but no severe focal pain. Labs were obtained showing hemoglobin of 6.8 he
has had many hemoglobins here over the past year or so this is the lowest level he has had he denies any specific acute bleeding that he is aware of. Other labs at patient's baseline creatinine 2.0 which is at patient's baseline. Patient found to
have stool impaction and possible stercoral colitis on CT scan. Likely contributing to patient's urinary retention. Quiroz was left in place as fecal impaction was not relieved with gentle disimpaction attempt. Plan to admit for further monitoring
of patient's likely upper GI bleed started on Protonix. Patient consented for blood.
*Critical Care Note
Total Time (30-74mins, 75-104mins- exclusive of procedures): Not Applicable
ED Attending Note
-
Portions of this chart may have been created with voice recognition software.� Occasional wrong word or��sound alike� substitutions may have occurred due to the inherent limitations of voice recognition software.
Discharge Plan
Departure
Patient Disposition: Admit
Date of Disposition: 03/29/24
Time of Disposition: 18:12
Admit to: Med/Surg
Admit to doctor: Javier
Presentation/result/management discussed w/ accepting MD/DO: Hospitalist
Patient with high blood pressure during this ER visit?: No
Condition: Good
Covid-19: Not Applicable
Discharge Problem:
Anemia, GI bleed, Stercoral colitis
Interventions
Interventions:
*Risk Screen - Suicide Last Done: 03/29/24 15:13
*General Assessment Last Done: 03/29/24 15:13
*Neglect/Abuse Screening Last Done: 03/29/24 15:13
ED- Fall Risk Assessment Last Done: 03/29/24 15:13
*ED COVID-19 Vaccine History Last Done: 03/29/24 15:13
*Nursing Disposition Last Done: 03/29/24 21:07
SV-Gsnaoe-Krzjkgwsag Assessment Last Done: 03/29/24 15:13
Discharge Date and Time
Discharge Date/Time: 03/29/24 21:09
--- NOTE | 2024-03-29 18:48 | HPS.HSE ---
Addendum entered and electronically signed by Catrachita Mcduffie MD 03/29/24 20:41:
Impression:
Abdominal aortic aneurysm with maximum AP dimension of 3.2 cm measurements slightly larger than previous examination, previously having maximum AP dimension of 2.9 cm, needs regular follow-up as an outpatient
Original Note:
Family Physician
-
Family Physician: Fernando Wiley
Chief Complaint
-
Constipation and generalized weakness
History of Present Illness
Pleasant 84-year-old male with history of A-fib anticoagulated on Xarelto, CHF with EF around 41% in the last echo lives at home with independently, presented to the hospital because of the constipation over the last 4 days he, admits usually
he moves his bowels daily but nothing in the last 4-day passes gas denies any nausea or vomiting until he was in the hospital, threes admitting come to the hospital he is not urinating much since yesterday and nothing today, denies any changes stool
or urine color fresh rectal bleed, no chest pain or shortness of breath or cough or congestion, denies any headache or vision change or weakness or numbness in extremity, denies any NSAID intake or change in the weight.
In the ER CT abdominal pelvis showed no obstruction while there is right pleural stool impaction which is manually disimpacted by the ER physician but look like according to the patient feels more than the rectum. Also occult blood stool was
positive and his hemoglobin around 6.8.
Denies any fresh rectal bleeding hematemesis or melena.
1 unit of blood is ordered.
Also had a bladder scan which was showed more than 800 and eventually Quiroz catheter placed.
He is awake, alert and oriented x 3 and all appropriate conversation does not look to be in fluid overload
Medical History
Past Medical History
Past Medical History: Reports Other
Additional Past Medical History:
Past medical history archive reviewed:
Coronary artery disease
Chronic systolic congestive heart failure EF around 41
COPD
Insulin-dependent diabetes
BPH
Peripheral vascular disease
Hypertension
A-fib and anticoagulated with Eliquis
Social history: Lives at home with , denies smoking alcohol use.
Family history: Positive for hypertension, diabetes, coronary artery disease.
Past Surgical History: Reports Other
Social History
Unable to obtain full social history at this time due to: Other
Family History
Family History: Other
Allergies / Home Medications
Allergies reflects when Allergies were last updated in [facility].
Home Medications with original date entered in [facility]
Allergy/Medication List:
Allergies
Allergy/AdvReac Type Severity Reaction Status Date / Time
SYDNI Inhibitors Allergy Unknown Verified 03/29/24 14:02
Home Medications
aspirin 81 mg tablet,delayed release 81 mg PO DAILY Blood clot prevention/tx #30 tabs 08/09/23
finasteride 5 mg tablet 5 mg PO DAILY bph #30 tabs 08/09/23
multivitamin with folic acid 400 mcg tablet (Tab-A-Laurie) 1 tab PO DAILY supplement #30 tabs 08/09/23
furosemide 40 mg tablet 40 mg PO DAILY Fluid retention/Swelling #0 tabs 09/04/23
rivaroxaban 15 mg tablet (Xarelto) 15 mg PO QPM Blood clot prevention/tx #0 tabs 09/04/23
alfuzosin 10 mg tablet,extended release 24 hr 10 mg PO DAILY 03/29/24
ascorbic acid (vitamin C) 250 mg tablet (Vitamin C) 250 mg PO DAILY 03/29/24
atorvastatin 40 mg tablet 40 mg PO QPM High cholesterol 03/29/24
bisoprolol fumarate 5 mg tablet 5 mg PO DAILY Blood pressure 03/29/24
bumetanide 0.5 mg tablet 0.5 mg PO DAILY 03/29/24
folic acid 1 mg tablet 2 mg PO DAILY 03/29/24
insulin glargine 100 unit/mL (3 mL) subcutaneous pen (Lantus Solostar U-100 Insulin) 15 unit SC HS Diabetes 03/29/24
levothyroxine 200 mcg tablet 200 mcg PO DAILY@0700 hypothyroid 03/29/24
levothyroxine 50 mcg tablet 50 mcg PO DAILY@0700 hypothyroid 03/29/24
mexiletine 150 mg capsule 150 mg PO Q8H supplement 03/29/24
ondansetron HCl 4 mg tablet 4 mg PO Q12H 03/29/24
Review of Systems
-
A 12 point ROS was completed and negative except as noted: Yes
Physical Exam
Vital Signs
Vital Signs
Temp Pulse Resp BP Pulse Ox
98.5 F 68 10 143/47 99
03/29/24 13:58 03/29/24 18:15 03/29/24 18:15 03/29/24 18:00 03/29/24 18:15
Physical exam:
General: Pale looking awake, alert and oriented x3, not in distress and holds appropriate conversation.
HEENT: No active discharge, ecchymosis or bruising, moist lips, tongue and mucous membrane.
Eyes: No discharge or red conjunctiva, no nystagmus, pupils are reactive and equal
Neck:Supple, no JVD no bruit no goiter.
Respiratory: Normal AP contour and diameter, normal chest wall movement, normal respiratory effort, no respiratory distress,
Lungs: Good air entry bilaterally, no wheezing or rhonchi, no rales or crackles
Heart: S1, S2 regular, normal rate, no added sound.
Gastrointestinal: Positive bowel sounds, soft, nontender, no guarding or rigidity or organomegaly
Musculoskeletal: , no chest wall abnormality or tenderness. All joints and extremities have good range of motion, no muscle tenderness or any joint swelling or tenderness.
Extremities: No pitting edema, good peripheral pulses, good range of motion
Skin: Warm and dry, no ulceration, pale
Neurological: Awake, alert and oriented x3, no facial droop, speech clear and comprehensive, good muscle tone, moves extremities for
Psychiatric: Normal mood, normal thought and judgment, normal affect,
Physical Exam
General: Other
Laboratory Results
-
03/29/24 15:29
03/29/24 15:
Laboratory Results
Total Bilirubin 0.5 mg/dl (0.2-1.3) 03/29/24 15:29
AST 31 U/L (17-59) 03/29/24 15:
ALT 27 U/L (0-50) 03/29/24 15:
Alkaline Phosphatase 85 U/L (38-126) 03/29/24 15:
Lipase 39 U/L (23-300) 03/29/24 15:
CT abdominal pelvis:
Interstitial fibrosis within the visualized lower lungs, stable from prior CT in 2019.
Distention of the rectum with stool with slight stranding of the perirectal fat and perirectal edema, findings compatible with stercoral colitis. No evidence for perforation.
External contour of the liver is somewhat nodular, raising the possibility of cirrhosis. No evidence for splenomegaly or ascites.
Numerous calcifications throughout the pancreas, similar to previous examination, compatible with chronic pancreatitis.
Quiroz catheter is present with balloon within the bladder lumen. Bladder is relatively collapsed with no gross abnormality.
Significant atherosclerotic disease with multiple vascular stents. Abdominal aortic aneurysm with maximum AP dimension of 3.2 cm measurements slightly larger than previous examination, previously having maximum AP dimension of 2.9 cm.
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
Data Reviewed
-
CT Scan: Report Reviewed by me and Discussed with Patient
Lab Data: Labs Reviewed by me and Discussed with Patient
Old Records: Reviewed
Impression/Plan
-
IMPRESSION:
54-year-old male with history of A-fib anticoagulated with Eliquis and history of presented to the hospital complaining of the constipation and difficulty urinating, workup showed stercoral colitis and stool impaction and urine retention also
noticed his hemoglobin around 6.9 stool was positive.
Constipation: Secondary to stool impaction in the rectum
Minimal dyspepsia by the ER physician
Start on senna Colace 2 tabs twice daily if not moving his bowels more then may consider enema or suppository.
GI consult
Symptomatic anemia, likely secondary to GI blood loss and hemoglobin around 6.8 and his baseline around 9-10
1 unit ordered for transfusion
Monitor H&H every 8 hours
Check iron panel with B12 and folic acid
GI consult
Hold Xarelto
Likely upper GI will start on Protonix IV twice daily
Holding Xarelto may increase risk with embolism and stroke was discussed with the patient and expressed understanding. Negative be started back on Xarelto as soon as soon as safely possible.
GI bleed: As above likely from upper GI
Chronic kidney disease, his baseline around 1.7-2 today is 2
We nephrotoxin
Recheck
Chronic systolic congestive heart failure EF around 41%, stable no evidence of fluid overload
Closely monitor.
Diabetes mellitus on insulin, continue Lantus
Glucoscan
A-fib continue bisoprolol while holding Eliquis as discussed.
All discussed with the patient in detail and expressed understanding
CODE STATUS full code
DVT prophylaxis SCD for
[2024-03-29 21:33] LABS: Glucose - Point of Care 113 mg/dl (70-99)
--- NOTE | 2024-03-29 21:33 | PTCARENOTE ---
Receive pt from ER. Pt alert oriented X3, in no distress. Pt assist X2 from the stretcher in the room to his bed. Pt weak on his legs. States that he uses cane/RW and weelchair. Pt oriented to the room, call keller within reach. Pt complains about
'pain' in his rectal area that feels like 'pressure'. Pt had a moderate, soft brown stool up on arriving to the floor. VSS (T=98, HR=70, RR=18, YP=801/53, SpO2=97% on RA). Pt feels weak up on standing. Blood xogtu=940. Insulin given as per order and
snack provided. Bed alarm in place for pt's safety. Will continue to monitor the pt.
[2024-03-29] MEDS: SENOKOT-S 2 TABLET PO (22:22)
[2024-03-29] MEDS: LANTUS 0.15 UNITS SC (22:23)
[2024-03-29] MEDS: NSS (PRESERVATIVE FREE) 10 ML IV (22:23)
[2024-03-29] MEDS: PROTONIX IV 40 MG IV (22:24)
[2024-03-29] MEDS: MEXITIL 150 MG PO (23:01)
[2024-03-30] VITALS (26 sets, daily range): BP systolic 64–141; BP diastolic 36–78; PULSE 57–62; BMI 27.3
[2024-03-30 00:53] LABS: Hematocrit 23.5 % (39.0-52.0); Hemoglobin 8.1 g/dL (13.0-18.0)
[2024-03-30] MEDS: SYNTHROID 50 MCG PO (05:47)
[2024-03-30] MEDS: SYNTHROID 200 MCG PO (05:47)
[2024-03-30 07:28] LABS: Glucose - Point of Care 80 mg/dl (70-99)
[2024-03-30] MEDS: NOVOLOG FLEXPEN-LOW RESISTANCE SC ×2 (07:35→12:52)
[2024-03-30 08:02] LABS: Hematocrit 24.2 % (39.0-52.0); Hemoglobin 7.9 g/dL (13.0-18.0)
[2024-03-30 08:03] LABS: Hematocrit 24.4 % (39.0-52.0); Mean Corp Hgb Conc. 32.8 g/dL (33.0-37.0); Mean Corpuscular Hgb 31.1 pg (27.0-31.0); Mean Corpuscular Volume 94.9 fL (80.0-94.0); Mean Platelet Volume 9.8 fL (7.4-10.4); Platelet Count 240 10^3/uL (130-400); Red Blood Cell Count 2.57 10^6/uL (4.70-6.10); Red Cell Dist. Width 15.6 % (11.5-14.5); White Blood Cell Count 9.3 10^3/uL (4.8-10.8)
[2024-03-30] MEDS: MEXITIL PO (08:30)
--- NOTE | 2024-03-30 08:35 | W.PN.HOSP.TC ---
Today's Communication/Plan
-
Patient transferred to ICU in the setting of hypotension and anemia requiring blood transfusion
Monitor H&H
Assessment / Plan
Assessment / Plan
Physical exam
General: Not in acute distress
HEENT: Normocephalic
Neck: Supple
Respiratory: CTAB
Cardio: S1, S2 regular, normal rate
Gastrointestinal: Positive bowel sounds, soft, nontender
Extremities: No pitting edema, good peripheral pulses, good range of motion
Skin: Warm and dry
Neurological: Awake, alert and oriented x3
Psychiatric: Calm
Impression:
Abdominal aortic aneurysm with maximum AP dimension of 3.2 cm measurements slightly larger than previous examination, previously having maximum AP dimension of 2.9 cm, needs regular follow-up as an outpatient
IMPRESSION:
54-year-old male with history of A-fib anticoagulated with Eliquis and history of presented to the hospital complaining of the constipation and difficulty urinating, workup showed stercoral colitis and stool impaction and urine retention also
noticed his hemoglobin around 6.9 stool was positive.
84M presented for anemia (Hgb 6.8), guaiac + stool, on Xarelto, received a unit of blood. Fatigue worsening for a few weeks. Initially presented with concerns of decreased BMs over the past few days. Unable to urinate on 03/29/24. PVR of 840 today,
Quiroz was placed.
Constipation: Secondary to stool impaction in the rectum
Minimal dyspepsia by the ER physician
GI consulted -- bowel regimen as per GI
Symptomatic anemia, likely secondary to GI blood loss and hemoglobin around 6.8 and his baseline around 9-10
1 unit ordered for transfusion with improvement in Hgb
Monitor H&H closely
Check iron panel with B12 and folic acid
GI consult
Hold Xarelto
Likely upper GI continue Protonix IV twice daily
Holding Xarelto may increase risk with embolism and stroke was discussed with the patient and expressed understanding. Negative be started back on Xarelto as soon as soon as safely possible.
GI bleed: As above likely from upper GI
Chronic kidney disease, his baseline around 1.7-2 today is 2
We nephrotoxin
Recheck
Chronic systolic congestive heart failure EF around 41%, stable no evidence of fluid overload
Closely monitor.
Diabetes mellitus on insulin, continue Lantus
Glucoscan
A-fib continue bisoprolol while holding Eliquis as discussed.
All discussed with the patient in detail and expressed understanding
CODE STATUS full code
DVT prophylaxis SCD for
Anticipated Discharge: > 48 hours
Subjective/Interval History
-
Date of Service: March 30, 2024
Patient was seen and examined. He denied any dizziness, chest pain or any other complaints.
Objective Data
-
Labs:
Laboratory Results
03/30/24 03/30/24 03/30/24
00:24 07:38 07:38
WBC 9.3
Hgb 8.1 L 8.0 L 7.9 L
Hct 23.5 L 24.4 L
Plt Count
Sodium
Potassium
Chloride
Carbon Dioxide
BUN
Creatinine
Glucose
Calcium
03/30/24
07:38
WBC
Hgb
Hct 24.2 L
Plt Count 240
Sodium Pending
Potassium Pending
Chloride Pending
Carbon Dioxide Pending
BUN Pending
Creatinine Pending
Glucose Pending
Calcium Pending
Vital Signs:
Vital Signs
Temp Pulse Resp BP Pulse Ox
98.9 F 56 17 64/40 98
03/30/24 08:20 03/30/24 08:20 03/30/24 08:20 03/30/24 08:20 03/30/24 08:20
I&O
03/29/24 03/30/24 03/31/24
06:59 06:59 06:59
Intake Total 250 / 250
Output Total 550 / 550
Balance -300 / -300
[2024-03-30 08:49] LABS: Blood Urea Nitrogen 28 mg/dl (9-20); Calcium 8.8 mg/dl (8.4-10.2); Carbon Dioxide 23 mmol/L (22-30); Chloride 106 mmol/L (98-107); Estimated Creatinine Clearance 23 ml/min; Glucose 68 mg/dl (70-99); Iron 59 ug/dl (49-181); Magnesium 2.2 mg/dl (1.6-2.3); Potassium 3.9 mmol/L (3.5-5.1); Sodium 140 mmol/L (135-145)
[2024-03-30] MEDS: NSS (PRESERVATIVE FREE) 10 ML IV ×2 (08:53→22:06)
[2024-03-30] MEDS: PROTONIX IV 40 MG IV ×2 (08:54→22:06)
[2024-03-30] MEDS: FOLVITE 2 MG PO (08:54)
[2024-03-30] MEDS: PROSCAR 5 MG PO (08:54)
[2024-03-30] MEDS: SENOKOT-S 2 TABLET PO (08:55)
[2024-03-30] MEDS: FLOMAX 0.4 MG PO (08:55)
--- NOTE | 2024-03-30 08:55 | CON.GI ---
Addendum entered and electronically signed by Deepak Castrejon MD 03/30/24 17:21:
I saw and examined the patient.
The LEVELER HELPER or PA's note was reviewed and I agree with the note.
Comment:
Pt is a 84 y/o man with CAD, COPD, BpH, IDDM with change in bowel pattern with constipation, difficulty urinating. He also has some lower abd d/c. In ER found to be hypotensive and CT shows stool in rectum mostly as well as throughout with
stercoral colitis. He received enema in ER and just received a MOM enema
abd; not distended, mildly tender lower abdomen
impression:
constipation
stercoral colitis
anemia
plan:
repeat enema given
if no improvement will attempt disimpaction
xray in am
once going will give miralax
monitor BP
check full thyroid panel
may need flex sig at some point
Original Note:
Consultation
-
Date/Time Consultation Requested: 03/29/24 2100
Date/Time Consultation Performed: 03/30/24 0900
Requesting Provider: Catrachita Mcduffie MD
Performing Provider: JAYY Espino, Deepak Castrejon MD
Reason for Consultation: anemia
Medical History
Chief Complaint / HPI
Chief Complaint: weakness, constipation
History of Present Illness:
Pt is a 84yo presents with afib on Xarelto, CAD, CHF, COPD, HTN, IDDM, and BPH presents with change in bowel pattern, difficulty urinating with nausea and vomiting. On admission noted with hbg down to 6.8 with MCV 94.9, iron 59, TIBC 296, iron
sat 19, ferritin 13.[address] completed with interstitial fibrosis, distention of rectal with stool with concern for stercoral colitis, possible cirrhosis, pancreatic calcification c/w chronic pancreatitis, AAA and concern for avascular
necrosis of both femoral heads. After admission pt was given enema with several stools and also noted with hypotension with BP down to 64/40.
Pt currently admits to constipation with no stools for 4 days and some lower abdominal pain. He denies dysphagia, GERD,diarrhea, or rectal bleeding. Hx colonoscopy years ago did not recall findings.
Past Medical History
Past Medical History: Arrhythmias (afib), CAD, CHF, COPD, HTN, Hypercholesterolemia, NIDDM and Other (BPH)
Past Surgical History: Cardiac (loop recorder) and Orthopedic (shoulder surgery )
Social History
Tobacco: Former Smoker (quit 15 years ago )
Alcohol: None
Drug: None
Personal:
Living: With Family
Employment: Retired
Family History
Family History: Reviewed & Not Pertinent
Allergies / Home Medications
Allergy/AdvReac Type Severity Reaction Status Date / Time
SYDNI Inhibitors Allergy Unknown Verified 03/29/24 14:02
�Medication �Instructions �Recorded
aspirin 81 mg tablet,delayed 81 mg PO DAILY Blood clot 08/09/23
release prevention/tx #30 tabs
finasteride 5 mg tablet 5 mg PO DAILY bph #30 tabs 08/09/23
multivitamin with folic acid 400 1 tab PO DAILY supplement #30 tabs 08/09/23
mcg tablet (Tab-A-Laurie)
furosemide 40 mg tablet 40 mg PO DAILY Fluid 09/04/23
retention/Swelling #0 tabs
rivaroxaban 15 mg tablet (Xarelto) 15 mg PO QPM Blood clot 09/04/23
prevention/tx #0 tabs
alfuzosin 10 mg tablet,extended 10 mg PO DAILY Urinary Issue 03/29/24
release 24 hr
ascorbic acid (vitamin C) 250 mg 250 mg PO DAILY Supplement 03/29/24
tablet (Vitamin C)
atorvastatin 40 mg tablet 40 mg PO QPM High cholesterol 03/29/24
bisoprolol fumarate 5 mg tablet 5 mg PO DAILY Heart 03/29/24
Disease/Condition
bumetanide 0.5 mg tablet 0.5 mg PO DAILY Fluid 03/29/24
Retention/Swelling
folic acid 1 mg tablet 2 mg PO DAILY Supplement 03/29/24
insulin glargine 100 unit/mL (3 15 unit SC HS Diabetes 03/29/24
mL) subcutaneous pen (Lantus
Solostar U-100 Insulin)
levothyroxine 200 mcg tablet 200 mcg PO DAILY@0700 Thyroid 03/29/24
levothyroxine 50 mcg tablet 50 mcg PO DAILY@0700 Thyroid 03/29/24
mexiletine 150 mg capsule 150 mg PO Q8H Arrhythmia 03/29/24
ondansetron HCl 4 mg tablet 4 mg PO Q12H NAUSEA 03/29/24
Review of Systems
-
History Source: Patient
Constitutional: Reports Weight Loss (recent wt loss with illness )
EENT: Reports No Symptoms
Respiratory: Reports No Symptoms
Abdomen/GI: Reports Abdominal Pain, Nausea, Vomiting and Constipated
: Reports Difficulty Voiding
Neurological: Reports Weakness
Endocrine: Reports No Symptoms
Hematologic/Lymphatic: Reports No Symptoms
Vital Signs
Temp Pulse Resp BP Pulse Ox
98.9 F 56 17 64/40 98
03/30/24 08:20 03/30/24 08:20 03/30/24 08:20 03/30/24 08:20 03/30/24 08:20
Physical Exam
Exam
General: Well Developed, Well Nourished and No Apparent Distress
HEENT: Normocephalic, Anicteric and Moist Mucous Membranes
Respiratory: Clear
Cardiac: Regular Rhythm
GI: Soft, Non Distended and Tender (LLQ and mid lower abdomen no guarding or rebound )
Rectal: Brown, Hem Positive and Other (large amount of soft stool in rectum )
Musculoskeletal: No Clubbing and No Cyanosis
Skin: Warm and Dry
Neuro: Awake, Alert and AO x 3
Psych: Calm
Results
WBC 9.3 10^3/uL (4.8-10.8) 03/30/24 07:38
Hgb 7.9 g/dL (13.0-18.0) L 03/30/24 07:38
Hgb 8.0 g/dL (13.0-18.0) L 03/30/24 07:38
Hct 24.2 % (39.0-52.0) L 03/30/24 07:38
Hct 24.4 % (39.0-52.0) L 03/30/24 07:38
MCV 94.9 fL (80.0-94.0) H 03/30/24 07:38
Plt Count 240 10^3/uL (130-400) 03/30/24 07:38
Absolute Neuts (auto) 6.5 10^3/uL (1.4-6.5) 03/29/24 15:29
Sodium 140 mmol/L (135-145) 03/30/24 07:38
Potassium 3.9 mmol/L (3.5-5.1) 03/30/24 07:38
Chloride 106 mmol/L (98-107) 03/30/24 07:38
Carbon Dioxide 23 mmol/L (22-30) 03/30/24 07:38
BUN 28 mg/dl (9-20) H 03/30/24 07:38
Creatinine 2.0 mg/dL (0.7-1.3) H 03/30/24 07:38
Calcium 8.8 mg/dl (8.4-10.2) 03/30/24 07:38
Total Bilirubin 0.5 mg/dl (0.2-1.3) 03/29/24 15:29
AST 31 U/L (17-59) 03/29/24 15:29
ALT 27 U/L (0-50) 03/29/24 15:29
Alkaline Phosphatase 85 U/L (38-126) 03/29/24 15:29
Lipase 39 U/L (23-300) 03/29/24 15:29
Diagnostic Image Results:
03/29/24 CT Abd/Pel (IV only)-DH only
Interstitial fibrosis within the visualized lower lungs, stable from prior CT in 2019.
Distention of the rectum with stool with slight stranding of the perirectal fat and perirectal edema, findings compatible with stercoral colitis. No evidence for perforation.
External contour of the liver is somewhat nodular, raising the possibility of cirrhosis. No evidence for splenomegaly or ascites.
Numerous calcifications throughout the pancreas, similar to previous examination, compatible with chronic pancreatitis.
Pace catheter is present with balloon within the bladder lumen. Bladder is relatively collapsed with no gross abnormality.
Significant atherosclerotic disease with multiple vascular stents. Abdominal aortic aneurysm with maximum AP dimension of 3.2 cm measurements slightly larger than previous examination, previously having maximum AP dimension of 2.9 cm.
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
Prior GI Procedures:
EGD: none
Colonoscopy: years ago did not recall any abnormal findings
Assessment / Plan
-
Pt is a 84yo presents with afib on Xarelto, CAD, CHF, COPD, HTN, IDDM, and BPH presents with change in bowel pattern, difficulty urinating with nausea and vomiting. On admission noted with hbg down to 6.8 with MCV 94.9, iron 59, TIBC 296, iron
sat 19, ferritin 13.[address] completed with interstitial fibrosis, distention of rectal with stool with concern for stercoral colitis, possible cirrhosis, pancreatic calcification c/w chronic pancreatitis, AAA and concern for avascular
necrosis of both femoral heads. After admission pt was given enema with several stools and also noted with hypotension with BP down to 64/40.
-constipation with concern for stercoral colitis/impactions
-anemia
-DON
-urinary retention s/p pace
-marked elevated TSH
-hypotension after admission
-afib on Xarelto
-CT with changes of cirrhosis with stable platelets and albumin
other medical problems:
-CAD
-CHF
-COPD
-HTN
-IDDM
-BPH
-AAA
-pancreatic calcification/chronic pancreatitis
-avascular necrosis femoral heads on CT
-prior smoker
PLAN:
etiology of anemia related to GI source with constipation and heme + stools vs other
pt currently with hypotension for transfer to ICU cont care per medical team
no signs of aggressive GI bleeding at this time with hypotension
trend hbg s/p transfusion
when stable repeat enema with still increased stool on rectal exam and noted stercoral colitis
when improved will need to consider colonoscopy IP vs OP with new onset of constipation
cont PPI BID
Xarelto currently on hold
add T4 with elevated TSH
OP follow up for change of cirrhosis noted on CT
will follow
-
-
Thank you for consultation and allowing me to participate in the patient's care. Please call the color television console monitor GI physician during the after hours with any questions or concerns.
[2024-03-30 08:58] LABS: Percent Saturation 19 % (20-50); Total Iron Binding Capacity 296 ug/dl (261-462)
[2024-03-30 09:04] LABS: Ferritin 13.5 ng/ml (17.9-464.0)
[2024-03-30 09:35] LABS: Folate > 20.0 ng/ml (2.76-20); Vitamin B12 429 pg/ml (239-931)
--- NOTE | 2024-03-30 09:46 | CONS.URO ---
Medical History
History of Present Illness
84 yo patient
who presented to ED with severe constipation/fecal impaction/stercoral colitis
Quiroz placed for 800 ml
[facility]
Past Medical History
Past Medical History: Other (CKD (baseline unknown) Atrial Fibrillation with Slow Ventricular Response ASCVD s/p Carotid, Cardiac, Renal Artery and Bilateral Lower Ext Stents Essential Hypertension Diabetes Mellitus, Type II Hypothyroidism BPH Hx
Bladder Cancer s/p TURBT)
Past Surgical History: Urological (2019 Dr Gil: Cystoscopy, transurethral resection of bladder tumor, placement of 6 x 24 double-J stent, retrograde pyelogram.)
Allergies/Home Medications
Allergies
Allergy/AdvReac Type Severity Reaction Status Date / Time
SYDNI Inhibitors Allergy Unknown Verified 03/29/24 14:02
Home Medications
�Medication �Instructions �Recorded �Confirmed �Type
aspirin 81 mg tablet,delayed 81 mg PO DAILY Blood clot 08/09/23 03/29/24 Rx
release prevention/tx #30 tabs
finasteride 5 mg tablet 5 mg PO DAILY bph #30 tabs 08/09/23 03/29/24 Rx
multivitamin with folic acid 400 1 tab PO DAILY supplement #30 tabs 08/09/23 03/29/24 Rx
mcg tablet (Tab-A-Laurie)
furosemide 40 mg tablet 40 mg PO DAILY Fluid 09/04/23 03/29/24 Rx
retention/Swelling #0 tabs
rivaroxaban 15 mg tablet (Xarelto) 15 mg PO QPM Blood clot 09/04/23 03/29/24 Rx
prevention/tx #0 tabs
alfuzosin 10 mg tablet,extended 10 mg PO DAILY Urinary Issue 03/29/24 03/29/24 History
release 24 hr
ascorbic acid (vitamin C) 250 mg 250 mg PO DAILY Supplement 03/29/24 03/29/24 History
tablet (Vitamin C)
atorvastatin 40 mg tablet 40 mg PO QPM High cholesterol 03/29/24 03/29/24 History
bisoprolol fumarate 5 mg tablet 5 mg PO DAILY Heart 03/29/24 03/29/24 History
Disease/Condition
bumetanide 0.5 mg tablet 0.5 mg PO DAILY Fluid 03/29/24 03/29/24 History
Retention/Swelling
folic acid 1 mg tablet 2 mg PO DAILY Supplement 03/29/24 03/29/24 History
insulin glargine 100 unit/mL (3 15 unit SC HS Diabetes 03/29/24 03/29/24 History
mL) subcutaneous pen (Lantus
Solostar U-100 Insulin)
levothyroxine 200 mcg tablet 200 mcg PO DAILY@0700 Thyroid 03/29/24 03/29/24 History
levothyroxine 50 mcg tablet 50 mcg PO DAILY@0700 Thyroid 03/29/24 03/29/24 History
mexiletine 150 mg capsule 150 mg PO Q8H Arrhythmia 03/29/24 03/29/24 History
ondansetron HCl 4 mg tablet 4 mg PO Q12H NAUSEA 03/29/24 03/29/24 History
Physical Exam
Vital Signs
Vital Signs
Temp Pulse Resp BP Pulse Ox
98.2 F 62 18 80/50 96
03/30/24 08:45 03/30/24 08:45 03/30/24 08:45 03/30/24 08:45 03/30/24 08:45
Physical Exam
elderly adult male
Genito-urinary: Quiroz Catheter
Assessment / Plan
-
Urinary retention due to baseline BPH plus fecal impaction
Anemia plus hypotension --> for transfer to ICU
Rec:
pt is already on Alfuzosin and Finasteride per his urologist
Quiroz until critical status and fecal impaction have been resolved
pt to f/u with his urologist as an outpatient
[2024-03-30 10:11] LABS: % Basophils 0.2 % (0-2); % Eosinophils 0.6 % (0-6); % Immature Granulocytes 0.4 % (0-0.5); % Lymphocytes 11.4 % (20.5-51.1); % Monocytes 10.6 % (1.7-9.3); % Neutrophils 76.8 % (42.2-75.2); Absolute Eosinophils 0.1 10^3/uL (0-0.7); Absolute Lymphocytes 1.1 10^3/uL (1.2-3.4); Absolute Neutrophils 7.5 10^3/uL (1.4-6.5); Hematocrit 23.2 % (39.0-52.0); Hemoglobin 7.7 g/dL (13.0-18.0); Mean Corp Hgb Conc. 33.2 g/dL (33.0-37.0); Mean Corpuscular Hgb 30.9 pg (27.0-31.0); Mean Corpuscular Volume 93.2 fL (80.0-94.0); Mean Platelet Volume 9.7 fL (7.4-10.4); Nucleated Red Blood Cells % 0 % (-); Platelet Count 232 10^3/uL (130-400); Red Blood Cell Count 2.49 10^6/uL (4.70-6.10); Red Cell Dist. Width 15.5 % (11.5-14.5); White Blood Cell Count 9.7 10^3/uL (4.8-10.8)
[2024-03-30 10:20] LABS: Lactic Acid 1.2 mmol/L (0.7-2.0)
[2024-03-30 10:27] LABS: Glycohemoglobin (HgbA1c) 7.1 % (4.0-5.6)
[2024-03-30 10:31] LABS: Troponin I 0.022 ng/ml
--- NOTE | 2024-03-30 10:39 | PTCARENOTE ---
Received patient this am AAOx3. Pt forgetful and [place]. 08:20 B/P 64/[address] Elise made aware. Manual B/p 80/50 Hr 62. B/P range sustained in 70-85 systolic and 36-50 diastolic. EKG done as ordered. Pt placed on Telemetry- Sinus
Bradycardia. Bumex, Mexital and Zebeta held as discussed with Dr. Medina. Report called an patient transferred to ICU.
--- NOTE | 2024-03-30 10:56 | CON.INTV ---
Consultation
Consultation Request
Date/Time Consultation Requested: 03/30/2024
Date/Time Consultation Performed: 03/30/2024
Requesting Provider: Dr. Brumfield
Performing Provider: Dr. Macho Crocker
Reason for Consultation: Symptomatic anemia/hypotension
Medical History
-
History of Present Illness:
84-year-old man past medical history of atrial fibrillation on anticoagulation-Xarelto, heart failure, COPD, hypertension, diabetes on insulin, BPH presented with difficulty urinating, nausea and vomiting. Found to have severe anemia with
hemoglobin of 6.[address] abdomen pelvis showed concern for stercoral colitis, chronic pancreatitis, possible cirrhosis of the liver. After receiving an enema and having multiple bowel movements patient developed hypotension systolic of
about 65. Fluid resuscitation was administered.
Given presence of anemia and chronic anticoagulation he was transferred to the critical care unit for hemodynamic monitoring.
In the ICU, he appears nontoxic. Cooperative.
Complaining of rectal pain which is his main problem. Denies nausea or vomiting.
Past Medical History
Past Medical History: Other (See assessment and plan)
Social History
Tobacco: Former Smoker (Quit 15 years ago)
Alcohol: None
Drug: None
Personal:
Employment: Retired
Family History
Family History: Reviewed & Not Pertinent
Allergies / Home Medications
Allergies
Allergy/AdvReac Type Severity Reaction Status Date / Time
SYDNI Inhibitors Allergy Unknown Verified 03/29/24 14:02
Home Medications
�Medication �Instructions �Recorded �Confirmed �Last Taken �Type
aspirin 81 mg tablet,delayed 81 mg PO DAILY Blood clot 08/09/23 03/29/24 03/29/24 Rx
release prevention/tx #30 tabs
finasteride 5 mg tablet 5 mg PO DAILY bph #30 tabs 08/09/23 03/29/24 03/29/24 Rx
multivitamin with folic acid 400 1 tab PO DAILY supplement #30 tabs 08/09/23 03/29/24 03/29/24 Rx
mcg tablet (Tab-A-Laurie)
furosemide 40 mg tablet 40 mg PO DAILY Fluid 09/04/23 03/29/24 03/29/24 Rx
retention/Swelling #0 tabs
rivaroxaban 15 mg tablet (Xarelto) 15 mg PO QPM Blood clot 09/04/23 03/29/24 03/28/24 Rx
prevention/tx #0 tabs
alfuzosin 10 mg tablet,extended 10 mg PO DAILY Urinary Issue 03/29/24 03/29/24 03/29/24 History
release 24 hr
ascorbic acid (vitamin C) 250 mg 250 mg PO DAILY Supplement 03/29/24 03/29/24 03/29/24 History
tablet (Vitamin C)
atorvastatin 40 mg tablet 40 mg PO QPM High cholesterol 03/29/24 03/29/24 03/28/24 History
bisoprolol fumarate 5 mg tablet 5 mg PO DAILY Heart 03/29/24 03/29/24 03/29/24 History
Disease/Condition
bumetanide 0.5 mg tablet 0.5 mg PO DAILY Fluid 03/29/24 03/29/24 03/29/24 History
Retention/Swelling
folic acid 1 mg tablet 2 mg PO DAILY Supplement 03/29/24 03/29/24 03/29/24 History
insulin glargine 100 unit/mL (3 15 unit SC HS Diabetes 03/29/24 03/29/24 03/28/24 History
mL) subcutaneous pen (Lantus
Solostar U-100 Insulin)
levothyroxine 200 mcg tablet 200 mcg PO DAILY@0700 Thyroid 03/29/24 03/29/24 03/29/24 History
levothyroxine 50 mcg tablet 50 mcg PO DAILY@0700 Thyroid 03/29/24 03/29/24 03/29/24 History
mexiletine 150 mg capsule 150 mg PO Q8H Arrhythmia 03/29/24 03/29/24 03/29/24 History
ondansetron HCl 4 mg tablet 4 mg PO Q12H NAUSEA 03/29/24 03/29/24 03/29/24 History
Review of Systems
-
History Source: Patient
All other systems: Negative unless noted
Vitals / Labs / Diagnostic Testing
Vital Signs
Temp Pulse Resp BP Pulse Ox
98.2 F 60 18 84/45 100
03/30/24 08:45 03/30/24 09:50 03/30/24 09:50 03/30/24 09:50 03/30/24 10:43
Lab Data
03/30/24 10:00
Diagnostic Testing:
Physical Exam
-
HEENT: Normocephalic
Cardiovascular: S1/S2
Respiratory: Clear and Non-Labored Respirations
GI: Soft and Non Distended
Neurology: Awake, Alert, AO x 3 and No Motor Deficits
Skin: Warm
General: Respiratory Distress (n)
Assessment
-
84-year-old man admitted to the hospital with nausea and vomiting, found to have a CAT scan possibility of a stercoral colitis, received enemas then developed hypotension. He also was found to have significant anemia with heme positive stools. No
evidence for acute bleeding. He was transferred to the critical care unit on 03/30/2020 for for hemodynamic monitoring.
Hypotension:? Vasovagal/volume depletion
Anemia: Heme positive stools-no evidence for acute GI bleed
S/p transfusion 1 unit packed red blood cells
Anticoagulation on hold
Conditions present prior admission:
Former smoker quit 15 years ago
Atrial fibrillation on anticoagulation
Pulmonary fibrosis present since at least 2019 on imaging
Coronary artery disease
Systolic cardiomyopathy ejection fraction 41%
Peripheral vascular disease
Chronic kidney disease
BPH
Insulin-dependent diabetic
AAA
Avascular necrosis of femoral heads
Chronic pancreatitis with pancreatic calcification
Assessment and plan:
Hypotension: Unclear etiology.
So far no evidence for acute GI bleed.
Wondering if patient develops some vasovagal reaction post enema/complaining of significant rectal pain.
No evidence for infection at this point.
Abdominal exam is benign: Serial abdominal exams
Repeat H&H at 3 PM today
He is status post 1 unit of packed red blood cells. Monitor for volume overload, currently off oxygen. Clear lung exam.
Appears comfortable. Cooperative. Main complaint is rectal pain. Tolerated breakfast without nausea or vomiting.
-
GI correspondence reviewed
Eventual repeat enema
Possible eventual colonoscopy
Continue PPI
No indication for endoscopy at this point as there is no evidence for acute bleeding.
-
Hold any antihypertensive/diuretics.
-
Encourage oral hydration.
Limit IV fluids with history of heart failure
At this point no evidence for volume overload
Hold any diuretics/Hold antihypertensives for now.
Follow renal function
-
Heart failure/atrial fibrillation: Patient is bradycardic.
No evidence for volume overload
Hold cardio medication for now due to hypotension
--
Hypothyroidism management per primary team
-
DVT prophylaxis with SCDs-of Xarelto.
-
Will observe throughout the afternoon, 3 PM H&H. If H&H is stable and patient remains hemodynamically stable will transfer back to telemetry later today.
Imaging reviewed:
CT abdominal pelvis: 03/29/2024
Interstitial fibrosis within the visualized lower lungs, stable from prior CT in 2019.
Distention of the rectum with stool with slight stranding of the perirectal fat and perirectal edema, findings compatible with stercoral colitis. No evidence for perforation.
External contour of the liver is somewhat nodular, raising the possibility of cirrhosis. No evidence for splenomegaly or ascites.
Numerous calcifications throughout the pancreas, similar to previous examination, compatible with chronic pancreatitis.
Quiroz catheter is present with balloon within the bladder lumen. Bladder is relatively collapsed with no gross abnormality.
Significant atherosclerotic disease with multiple vascular stents. Abdominal aortic aneurysm with maximum AP dimension of 3.2 cm measurements slightly larger than previous examination, previously having maximum AP dimension of 2.9 cm.
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
Echocardiogram 01/14/2023:
Report reviewed.
Ejection fraction 41%.
Global hypokinesis.
Moderate MR. Moderate to severe TR. Pulmonary pressure 40 mmHg. Normal right atrium. Normal right ventricular size.
--- NOTE | 2024-03-30 11:00 | PTCARENOTE ---
Received pt. from 4E @ 1045 d/t previous hypotension on floor. BP upon arrival to ICU 104/55 w/out intervention. Denies dizziness/lightheadedness. AAOX3, forgetful @ x's, [place]. Reports moderated/severe intermittent/sharp rectal pain.
SB/paroxysmal afib on monitor. SpO2 100% on RA. Auscultated dim breath sounds throughout. +BS, abd distended/obese/firm. Quiroz in place draining harmony urine. # 20 L FA patent, dressing c/d/i. Pt.'s updated via phone on plan of care. Pt.
instructed on how to report care concerns and call keller w in reach. Bed alarm active.
[2024-03-30 11:10] LABS: ALT (SGPT) 23 U/L (0-50); AST (SGOT) 27 U/L (17-59); Albumin 3.3 g/dl (3.5-5.0); Alkaline Phosphatase 85 U/L (38-126); Blood Urea Nitrogen 28 mg/dl (9-20); Calcium 8.6 mg/dl (8.4-10.2); Carbon Dioxide 23 mmol/L (22-30); Chloride 106 mmol/L (98-107); Estimated Creatinine Clearance 24 ml/min; Glucose 137 mg/dl (70-99); Potassium 3.9 mmol/L (3.5-5.1); Sodium 140 mmol/L (135-145); Total Bilirubin 0.8 mg/dl (0.2-1.3); Total Protein 5.9 g/dl (6.3-8.2); eGFR 34.14
[2024-03-30 12:50] LABS: Glucose - Point of Care 136 mg/dl (70-99)
[2024-03-30 13:19] LABS: INR 1.41; PT 17.1 Sec (11.4-14.6)
[2024-03-30 13:20] LABS: APTT 36.3 Sec (23.4-35.0)
[2024-03-30 15:03] LABS: Hematocrit 23.1 % (39.0-52.0); Hemoglobin 7.6 g/dL (13.0-18.0)
[2024-03-30] MEDS: MEXITIL 150 MG PO ×2 (15:12→22:06)
[2024-03-30] MEDS: MIRALAX 17 GRAMS PO (15:12)
[2024-03-30] MEDS: ProAmatine 5 MG PO ×2 (15:12→18:08)
[2024-03-30] MEDS: THERAGRAN 1 TABLET PO (15:12)
[2024-03-30] MEDS: ASPIR LOW (ENTERIC COATED) 81 MG PO (15:12)
[2024-03-30 15:27] LABS: Troponin I 0.023 ng/ml
[2024-03-30] MEDS: LIPITOR 40 MG PO (18:08)
[2024-03-30 18:10] LABS: Glucose - Point of Care 326 mg/dl (70-99)
[2024-03-30] MEDS: NOVOLOG FLEXPEN-LOW RESISTANCE 4 UNITS SC (18:32)
--- NOTE | 2024-03-30 18:36 | PTCARENOTE ---
BP remained stable throughout day. Milk of molasses enema instilled into rectum. Pt. assisted x2 onto BSC where he evacuated XL soft/brown BM. Complete hygiene care provided and assisted back to bed. Call krishna jj in reach.
--- NOTE | 2024-03-30 19:41 | PTCARENOTE ---
rec'd patient. assessment as documented. oriented x3. denies pain. small BM at shift change. pace intact. pt repositioning self. call keller within reach.
[2024-03-30] MEDS: LANTUS 0.15 UNITS SC (22:06)
[2024-03-30] MEDS: SENOKOT-S PO (22:06)
[2024-03-30 22:16] LABS: Glucose - Point of Care 277 mg/dl (70-99)
[2024-03-31] VITALS (19 sets, daily range): BP systolic 97–155; BP diastolic 28–106; BMI 26.6
[2024-03-31] MEDS: SYNTHROID 200 MCG PO (04:51)
[2024-03-31] MEDS: SYNTHROID 50 MCG PO (04:52)
--- NOTE | 2024-03-31 05:15 | PTCARENOTE ---
AM labs sent. pt with small BM x3 overnight. remains SB on monitor, on RA, denies pain. forgetful at times when waking up. pace care done. call keller within reach. care ongoing.
[2024-03-31 05:39] LABS: Hematocrit 24.6 % (39.0-52.0); Hemoglobin 8.1 g/dL (13.0-18.0); Mean Corp Hgb Conc. 32.9 g/dL (33.0-37.0); Mean Corpuscular Hgb 30.9 pg (27.0-31.0); Mean Corpuscular Volume 93.9 fL (80.0-94.0); Platelet Count 243 10^3/uL (130-400); Red Blood Cell Count 2.62 10^6/uL (4.70-6.10); Red Cell Dist. Width 15.5 % (11.5-14.5); White Blood Cell Count 8.6 10^3/uL (4.8-10.8)
[2024-03-31 05:48] LABS: INR 1.31; PT 16.1 Sec (11.4-14.6)
[2024-03-31 06:17] LABS: Blood Urea Nitrogen 29 mg/dl (9-20); Calcium 8.7 mg/dl (8.4-10.2); Carbon Dioxide 22 mmol/L (22-30); Chloride 107 mmol/L (98-107); Estimated Creatinine Clearance 23 ml/min; Glucose 102 mg/dl (70-99); Magnesium 2.5 mg/dl (1.6-2.3); Potassium 4.1 mmol/L (3.5-5.1); Sodium 141 mmol/L (135-145)
[2024-03-31 08:00] LABS: Glucose - Point of Care 100 mg/dl (70-99)
--- NOTE | 2024-03-31 08:20 | PTCARENOTE ---
Received pt @ change of shift. Drowsy, awakens to verbal stimuli, initially confused upon waking then ox3, forgetful. SB/SR/parox afib on monitor. SpO2 97% on RA. Afebrile. +BS, abd obese, soft/nt. +appetite. Quiroz catheter in place draining
harmony urine. # 20 L FA, patent, dressing c/d/i. Assisted x1 to stand pivot into chair; generalized weakness. Chair alarm active. Instructed on how to report care concerns and call krishna jj in reach.
[2024-03-31] MEDS: NOVOLOG FLEXPEN-LOW RESISTANCE SC (08:26)
[2024-03-31] MEDS: NSS (PRESERVATIVE FREE) 10 ML IV (08:40)
[2024-03-31] MEDS: PROTONIX IV 40 MG IV (08:40)
[2024-03-31] MEDS: FLOMAX 0.4 MG PO (08:41)
[2024-03-31] MEDS: MEXITIL 150 MG PO ×2 (08:41→18:19)
[2024-03-31] MEDS: MIRALAX 17 GRAMS PO (08:41)
[2024-03-31] MEDS: ASPIR LOW (ENTERIC COATED) 81 MG PO (08:41)
[2024-03-31] MEDS: PROSCAR 5 MG PO (08:41)
[2024-03-31] MEDS: SENOKOT-S 2 TABLET PO ×2 (08:41→21:40)
[2024-03-31] MEDS: THERAGRAN 1 TABLET PO (08:41)
[2024-03-31] MEDS: ProAmatine 5 MG PO ×3 (08:41→18:19)
--- NOTE | 2024-03-31 08:50 | PN.CDI ---
CDI
- -
CDI:
Physician Documentation Request
Admit Date: 03/29/24 19:37
Dear Doctor Srinath,
Patient admitted for GI bleed.
03/30 Hospitalist PN: 'Symptomatic anemia, likely secondary to GI blood loss and hemoglobin around 6.8 and his baseline around 9-10...Hold Xarelto'
Please clarify the relationship between these conditions:
Yes, GI bleed is related to/exacerbated by Xarelto
No, GI bleed is not related to/exacerbated by Eliquis
Unable to determine
Use of terms such as suspected, likely, concern for, or probable (associated with a specific diagnosis that is being evaluated, monitored, or treated as if it exists) are acceptable and can be coded in the inpatient setting, when documented at the
time of discharge.
Thank you,
Kalli Correa RN, BSN
CDI Specialist
Available via Sharon text
Please use your independent medical judgment in providing your response.
--- NOTE | 2024-03-31 10:54 | CM ---
CM following re: discharge planning.
Discussed in Rounds, reviewed pt's chart, met with pt.
Pt is an 84 year old male, admitted with primary dx of GIB.
Pt reports he lives with spouse and a son in a 2SH, 3 steps to enter, has 4 supportive children. Pt reports he ambulates with a walker and a cane at baseline. No VN or SNF history. Pt stated he feels very weak.
PT and OT will evaluate the pt to determine a level of care at discharge.
PCP: Fernando Wiley
Pharmacy: [facility]
D/C plan: home with most likely VN services and family support. Family to transport at discharge.
CM will follow with discharge plan updates as hospitalization progresses
--- NOTE | 2024-03-31 11:33 | W.PN.INTV ---
Today's Communication / Plan
Recommendations
Continue to hold antihypertensive
Midodrine started
Follow H&H
Increase activity as able
Bowel regimen
Enemas as needed
Transfer to telemetry
Sign off
Assessment
-
84-year-old man admitted to the hospital with nausea and vomiting, found to have a CAT scan possibility of a stercoral colitis, received enemas then developed hypotension. He also was found to have significant anemia with heme positive stools. No
evidence for acute bleeding. He was transferred to the critical care unit on 03/30/2020 for for hemodynamic monitoring.
Hypotension:? Vasovagal/volume depletion
Anemia: Heme positive stools-no evidence for acute GI bleed
S/p transfusion 1 unit packed red blood cells
Anticoagulation on hold
Conditions present prior admission:
Former smoker quit 15 years ago
Atrial fibrillation on anticoagulation
Pulmonary fibrosis present since at least 2018 on imaging
Coronary artery disease
Systolic cardiomyopathy ejection fraction 41%
Peripheral vascular disease
Chronic kidney disease
BPH
Insulin-dependent diabetic
AAA
Avascular necrosis of femoral heads
Chronic pancreatitis with pancreatic calcification
Assessment and plan:
Hypotension: Did not require vasopressors. Blood pressure improved overnight.
There is no evidence for acute GI bleed. Hemoglobin improved this morning.
Wondering if patient develops some vasovagal reaction post enema/complaining of significant rectal pain.
-
Rectal pain has improved after large bowel movement.
No evidence for infection at this point.
Abdominal exam is benign: Serial abdominal exams
-
He is status post 1 unit of packed red blood cells. Monitor for volume overload, currently off oxygen. Clear lung exam.
Appears comfortable. Cooperative.
Tolerating diet.
-
GI correspondence reviewed
Enemas as needed.
Bowel regimen
Possible eventual colonoscopy
Continue PPI
No indication for endoscopy at this point as there is no evidence for acute bleeding.
-
Hold any antihypertensive/diuretics.
Midodrine started
-
Continue to encourage oral hydration
Limit IV fluids with history of heart failure
At this point no evidence for volume overload
Follow renal function
-
Heart failure/atrial fibrillation: Patient is bradycardic.
No evidence for volume overload
Hold cardio medication for now due to hypotension
--
Hypothyroidism management per primary team
-
Patient has minimal interstitial fibrosis on CAT scan stable since 2019. May follow-up with pulmonary if desires after discharge. Currently not requiring supplemental oxygen.
-
DVT prophylaxis with SCDs-of Xarelto.
-
Transfer to telemetry. Critical care team will sign off. Please call with questions.
Imaging reviewed:
CT abdominal pelvis: 03/29/2024
Interstitial fibrosis within the visualized lower lungs, stable from prior CT in 2019.
Distention of the rectum with stool with slight stranding of the perirectal fat and perirectal edema, findings compatible with stercoral colitis. No evidence for perforation.
External contour of the liver is somewhat nodular, raising the possibility of cirrhosis. No evidence for splenomegaly or ascites.
Numerous calcifications throughout the pancreas, similar to previous examination, compatible with chronic pancreatitis.
Quiroz catheter is present with balloon within the bladder lumen. Bladder is relatively collapsed with no gross abnormality.
Significant atherosclerotic disease with multiple vascular stents. Abdominal aortic aneurysm with maximum AP dimension of 3.2 cm measurements slightly larger than previous examination, previously having maximum AP dimension of 2.9 cm.
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
Echocardiogram 01/14/2023:
Report reviewed.
Ejection fraction 41%.
Global hypokinesis.
Moderate MR. Moderate to severe TR. Pulmonary pressure 40 mmHg. Normal right atrium. Normal right ventricular size.
Subjective Dataa
Subjective Data
Date of Service:
Date of Service: March 31, 2024
Chief Complaint: Cable Strander Follow Up (Hypotension)
Subjective:
Patient improved his GI symptoms after a large bowel movement.
Denies nausea or vomiting.
Hemodynamics improved. Did not require vasopressors.
Review of Systems
Cardiopulmonary: Dyspnea (n)
GI: Abdominal Pain (n), Nausea (n) and Vomiting (n)
Neuro: Headache (n)
Objective Data
Data Reviewed
Vital Signs / I&O / Oxygen:
Vital Signs
Temp Pulse Resp BP Pulse Ox
97.7 F 55 15 139/54 98
03/31/24 11:19 03/31/24 08:00 03/31/24 08:00 03/31/24 08:00 03/31/24 09:30
Intake and Output
03/30/24 03/31/24 04/01/24
06:59 06:59 06:59
Intake Total 250 / 250 900 / 900 240 / 240
Output Total 550 / 550 1000 / 1000 300 / 300
Balance -300 / -300 -100 / -100 -60 / -60
SaO2 98
Physical Exam
General: Comfortable
HEENT: Normocephalic
Cardiovascular: S1-S2 and Regular Rhythm
Respiratory: Clear and Non-Labored Respirations
GI: Soft and Non Distended
Neurology: Awake, Alert and No Motor Deficits
Skin: Warm
Labs/Micro/Reports
Lab Data
03/31/24 05:08
03/31/24 05:08
Laboratory Results
03/30/24 03/31/24
12:57 05:08
PT 17.1 H 16.1 H
INR 1.41 1.31
APTT 36.3 H
--- NOTE | 2024-03-31 12:16 | PTCARENOTE ---
Pt. remains OOB to chair. Tolerating position, denies dizziness/lightheadedness. Hourly round maintained and call krishna jj in reach.
[2024-03-31 12:24] LABS: Glucose - Point of Care 205 mg/dl (70-99)
--- NOTE | 2024-03-31 13:23 | W.PN.HOSP.TC ---
Today's Communication/Plan
-
Continue to hold antihypertensives
Midodrine started yesterday -- continue
Follow H&H
Increase activity as able
Bowel regimen
Enemas as needed
Restart Xarelto
Transfer to telemetry
Appreciate Champagne Maker and GI
Assessment / Plan
Assessment / Plan
Physical exam
General: Not in acute distress
HEENT: Normocephalic
Neck: Supple
Respiratory: CTAB
Cardio: S1, S2 regular, normal rate
Gastrointestinal: Positive bowel sounds, soft, nontender
Extremities: No pitting edema, good peripheral pulses, good range of motion
Skin: Warm and dry
Neurological: Awake, alert and oriented x3
Psychiatric: Calm
Impression:
Abdominal aortic aneurysm with maximum AP dimension of 3.2 cm measurements slightly larger than previous examination, previously having maximum AP dimension of 2.9 cm, needs regular follow-up as an outpatient
IMPRESSION:
54-year-old male with history of A-fib anticoagulated with Eliquis and history of presented to the hospital complaining of the constipation and difficulty urinating, workup showed stercoral colitis and stool impaction and urine retention also
noticed his hemoglobin around 6.9 stool was positive.
84M presented for anemia (Hgb 6.8), guaiac + stool, on Xarelto, received a unit of blood. Fatigue worsening for a few weeks. Initially presented with concerns of decreased BMs over the past few days. Unable to urinate on 03/29/24. PVR of 840 today,
Quiroz was placed.
Hypotension
-Did not require vasopressors and blood pressure improved overnight
-No evidence for acute GI bleed and hemoglobin has improved.
-Patient possibly developed some vasovagal reaction post enema/complaining of significant rectal pain.
-Hold antihypertensives/diuretics
-Continue Midodrine
Rectal pain
-Improved after large bowel movement
Constipation
-Secondary to stool impaction in the rectum
-Bowel regimen
-Continue PPI
-Eventual colonoscopy consideration
Minimal dyspepsia by the ER physician
GI consulted -- bowel regimen as per GI
Symptomatic anemia, likely secondary to GI blood loss and hemoglobin around 6.8 and his baseline around 9-10
Yes, concern for GI bleed is related to/exacerbated by Xarelto
-1 unit ordered for transfusion with improvement in Hgb with good improvement in Hgb
-Monitor H&H closely
-Iron panel with iron 59, TIBC 296, % sats 19 and Ferritin low at 13.5
-B12 WNL and folic acid elevated
-GI consult
-Likely upper GI continue Protonix IV twice daily
-Initially was holding Xarelto as it could increase risk with embolism and stroke was discussed with the patient and expressed understanding.
-Resume Xarelto and monitor Hgb/vital signs
Chronic kidney disease, his baseline around 1.7-2 today is 2
We nephrotoxin
Recheck
Chronic systolic congestive heart failure EF around 41%, stable no evidence of fluid overload
Closely monitor.
Diabetes mellitus on insulin, continue Lantus
Glucoscan
A-fib continue bisoprolol while holding Eliquis as discussed.
All discussed with the patient in detail and expressed understanding
CODE STATUS full code
DVT Prophylaxis: SCD. Will restart Xarelto soon.
Anticipated Discharge: > 48 hours
Subjective/Interval History
-
Date of Service: March 31, 2024
Patient was seen and examined. He denied any chest pain, dizziness or any other complaints.
Objective Data
-
Labs:
Laboratory Results
03/31/24
05:08
WBC 8.6
Hgb 8.1 L
Hct 24.6 L
Plt Count 243
PT 16.1 H
INR 1.31
Sodium 141
Potassium 4.1
Chloride 107
Carbon Dioxide 22
BUN 29 H
Creatinine 2.0 H
Glucose 102 H
Calcium 8.7
Vital Signs:
Vital Signs
Temp Pulse Resp BP Pulse Ox
97.7 F 62 17 97/43 97
03/31/24 11:19 03/31/24 12:32 03/31/24 12:00 03/31/24 12:32 03/31/24 12:00
I&O
03/30/24 03/31/24 04/01/24
06:59 06:59 06:59
Intake Total 250 / 250 900 / 900 240 / 240
Output Total 550 / 550 1000 / 1000 300 / 300
Balance -300 / -300 -100 / -100 -60 / -60
[2024-03-31] MEDS: NOVOLOG FLEXPEN-LOW RESISTANCE 2 UNITS SC (13:42)
--- NOTE | 2024-03-31 15:16 | PTCARENOTE ---
Report given to 4W RN and pt. transported via stretcher on conference concierge w belongings to x-ray and then to rm 435, bed 02. @ bedside, updated. No further needs from this RN.
--- NOTE | 2024-03-31 15:24 | W.PN.UPDATE ---
Update Note
Progress Note Update
Attempted to see the patient, but he was transitioning from x-ray to his new room, therefore unable to evaluate in person. Noted that his TSH was significantly elevated at 27.5. Likely contributing to his ongoing constipation problems. Per
nursing he did have a large bowel movement and subsequent smaller bowel movements after receiving the enema yesterday. He has continued on MiraLAX daily and Senokot twice daily. He should continue with this bowel regimen at this point in time.
Ideally needs to have better management of his TSH, consider endocrine evaluation. Ensure adequate hydration and adequate intake of fiber as able.
--- NOTE | 2024-03-31 16:00 | PTCARENOTE ---
1540 Pt transferred from ICU via stretcher. Alert and oriented x 3, pt may be forgetful at times. Quiroz catheter intact to bedside drainage. VS stable. Noted MD orders. Place pt on heart monitor. Bed alarm intact.
Review nurse call keller with pt. Pt denies discomfort, continue to monitor pt closely.
--- NOTE | 2024-03-31 17:19 | W.PN.GI.CBS2 ---
Today's Communication / Plan
-
C/w miralax daily
Ok to resume AC today
GI will sign off please call with ?s
Assessment / Plan
-
Pt is a 84yo presents with afib on Xarelto, CAD, CHF, COPD, HTN, IDDM, and BPH presents with change in bowel pattern, difficulty urinating with nausea and vomiting. On admission noted with hbg down to 6.8 with MCV 94.9, iron 59, TIBC 296, iron
sat 19, ferritin 13.[address] completed with interstitial fibrosis, distention of rectal with stool with concern for stercoral colitis, possible cirrhosis, pancreatic calcification c/w chronic pancreatitis, AAA and concern for avascular
necrosis of both femoral heads. After admission pt was given enema with several stools and also noted with hypotension with BP down to 64/40.
-constipation with concern for stercoral colitis/impactions
-anemia
-DON
-urinary retention s/p pace
-marked elevated TSH
-hypotension after admission
-afib on Xarelto
-CT with changes of cirrhosis with stable platelets and albumin
other medical problems:
-CAD
-CHF
-COPD
-HTN
-IDDM
-BPH
-AAA
-pancreatic calcification/chronic pancreatitis
-avascular necrosis femoral heads on CT
-prior smoker
Plan
- Had large BM yesterday with clinical improvement
- C/w miralax daily basis
- Recommend thyroid management per primary team
- Close OP GI follow up consideration of colonoscopy
- Ok to resume anticoagulation today
Will sign off please call for questions
Subjective
Subjective
Date of Service: March 31, 2024
He passed large BM yesterday. Feels much improved. Transferred to floors today
Objective
Data Reviewed
Laboratory Data:
Laboratory Results
03/31/24 05:08
03/31/24 05:08
Laboratory Results
PT 16.1 Sec (11.4-14.6) H 03/31/24 05:08
INR 1.31 03/31/24 05:08
APTT 36.3 Sec (23.4-35.0) H 03/30/24 12:57
Magnesium 2.5 mg/dl (1.6-2.3) H 03/31/24 05:08
Total Bilirubin 0.8 mg/dl (0.2-1.3) 03/30/24 10:00
AST 27 U/L (17-59) 03/30/24 10:00
ALT 23 U/L (0-50) 03/30/24 10:00
Alkaline Phosphatase 85 U/L (38-126) 03/30/24 10:00
Lipase 39 U/L (23-300) 03/29/24 15:29
Vital Signs and I&O:
Vital Signs
Temp Pulse Resp BP Pulse Ox
97.6 F 66 20 135/106 100
03/31/24 15:46 03/31/24 15:46 03/31/24 15:46 03/31/24 15:46 03/31/24 15:46
I&O
03/30/24 03/31/24 04/01/24
06:59 06:59 06:59
Intake Total 250 / 250 900 / 900 240 / 240
Output Total 550 / 550 1000 / 1000 300 / 300
Balance -300 / -300 -100 / -100 -60 / -60
Physical Exam
Physical Exam
GEN: No acute distress, conversant, pleasant
HEENT: anicteric, extraocular movements intact, clear oropharynx without exudates
GI: soft, non-distended, not tender to palpation, normal active bowel sounds, no hepatosplenomegaly
EXT: warm, well perfused, no edema bilaterally
NEURO: AAOx3, non-focal
[2024-03-31 17:31] LABS: Glucose - Point of Care 293 mg/dl (70-99)
[2024-03-31] MEDS: NOVOLOG FLEXPEN-LOW RESISTANCE 3 UNITS SC (18:18)
[2024-03-31] MEDS: LIPITOR 40 MG PO (18:19)
[2024-03-31] MEDS: XARELTO 15 MG PO (18:19)
[2024-03-31 21:31] LABS: Glucose - Point of Care 145 mg/dl (70-99)
[2024-03-31] MEDS: PROTONIX 40 MG PO (21:39)
[2024-03-31] MEDS: LANTUS 0.15 UNITS SC (21:40)
[2024-04-01] MEDS: MEXITIL 150 MG PO ×4 (01:11→23:11)
[2024-04-01 03:30] VITALS: BP 138/63
[2024-04-01] MEDS: SYNTHROID 200 MCG PO (05:45)
[2024-04-01] MEDS: SYNTHROID 50 MCG PO (05:45)
[2024-04-01 06:00] VITALS: BMI 26.7
[2024-04-01 07:15] VITALS: BP 141/44
[2024-04-01] MEDS: MIRALAX 17 GRAMS PO (07:57)
[2024-04-01] MEDS: PROTONIX 40 MG PO ×2 (07:59→19:53)
[2024-04-01] MEDS: NOVOLOG FLEXPEN-LOW RESISTANCE SC (07:59)
[2024-04-01] MEDS: SENOKOT-S 2 TABLET PO (07:59)
[2024-04-01] MEDS: ASPIR LOW (ENTERIC COATED) 81 MG PO (07:59)
[2024-04-01] MEDS: PROSCAR 5 MG PO (07:59)
[2024-04-01] MEDS: THERAGRAN 1 TABLET PO (07:59)
[2024-04-01] MEDS: FLOMAX 0.4 MG PO (07:59)
[2024-04-01 08:00] LABS: Glucose - Point of Care 114 mg/dl (70-99)
[2024-04-01] MEDS: ProAmatine PO ×3 (08:09→17:21)
[2024-04-01 09:00] LABS: Hematocrit 24.1 % (39.0-52.0); Hemoglobin 7.8 g/dL (13.0-18.0); Mean Corp Hgb Conc. 32.4 g/dL (33.0-37.0); Mean Corpuscular Hgb 31.3 pg (27.0-31.0); Mean Corpuscular Volume 96.8 fL (80.0-94.0); Platelet Count 234 10^3/uL (130-400); Red Blood Cell Count 2.49 10^6/uL (4.70-6.10); Red Cell Dist. Width 15.2 % (11.5-14.5); White Blood Cell Count 7.8 10^3/uL (4.8-10.8)
--- NOTE | 2024-04-01 09:31 | PN.CDI ---
CDI
- -
CDI:
Physician Documentation Request
Admit Date: 03/29/24 19:37
Dear Doctor Srinath,
Patient admitted with anemia.
03/30 Parts Interpreter Consult: 'Found to have severe anemia with hemoglobin of 6.8 on admission.'
03/31 Hospitalist PN: 'Symptomatic anemia, likely secondary to GI blood loss and hemoglobin around 6.8 and his baseline around 9-10...1 unit ordered for transfusion with improvement in Hgb with good improvement in Hgb'
Clarify which of the following accurately represents the acuity of the anemia. Possible options might include:
____ Acute
____ Acute on Chronic
____ Chronic stable condition
____ Other
Use of terms such as suspected, likely, concern for, or probable (associated with a specific diagnosis that is being evaluated, monitored, or treated as if it exists) are acceptable and can be coded in the inpatient setting, when documented at the
time of discharge.
Thank you,
Kalli Correa RN, BSN
CDI Specialist
Available via [employer] text
Please use your independent medical judgment in providing your response.
[2024-04-01 10:59] LABS: Blood Urea Nitrogen 30 mg/dl (9-20); Calcium 8.6 mg/dl (8.4-10.2); Carbon Dioxide 22 mmol/L (22-30); Chloride 107 mmol/L (98-107); Estimated Creatinine Clearance 21 ml/min; Glucose 98 mg/dl (70-99); Potassium 4.3 mmol/L (3.5-5.1); Sodium 140 mmol/L (135-145); eGFR 28.63
[2024-04-01 11:18] VITALS: BP 131/51
[2024-04-01 11:39] LABS: Glucose - Point of Care 224 mg/dl (70-99)
--- NOTE | 2024-04-01 12:43 | W.PN.HOSP.TC ---
Addendum entered and electronically signed by Dexter Yo MD 04/01/24 17:30:
Ordered IV iron for iron deficiency, monitor Cr going into tomorrow.
Addendum entered and electronically signed by Dexter Yo MD 04/01/24 12:55:
Acute on Chronic Anemia
Original Note:
Today's Communication/Plan
-
Discharge today
Assessment / Plan
Assessment / Plan
Physical exam
General: Not in acute distress
HEENT: Normocephalic
Neck: Supple
Respiratory: CTAB
Cardio: S1, S2 regular, normal rate
Gastrointestinal: Positive bowel sounds, soft, nontender
Extremities: No pitting edema, good peripheral pulses, good range of motion
Skin: Warm and dry
Neurological: Awake, alert and oriented x3
Psychiatric: Calm
Impression:
Abdominal aortic aneurysm with maximum AP dimension of 3.2 cm measurements slightly larger than previous examination, previously having maximum AP dimension of 2.9 cm, needs regular follow-up as an outpatient
IMPRESSION:
54-year-old male with history of A-fib anticoagulated with Eliquis and history of presented to the hospital complaining of the constipation and difficulty urinating, workup showed stercoral colitis and stool impaction and urine retention also
noticed his hemoglobin around 6.9 stool was positive.
84M presented for anemia (Hgb 6.8), guaiac + stool, on Xarelto, received a unit of blood. Fatigue worsening for a few weeks. Initially presented with concerns of decreased BMs over the past few days. Unable to urinate on 03/29/24. PVR of 840 today,
Quiroz was placed.
Hypotension
-Did not require vasopressors and blood pressure improved
-No evidence for acute GI bleed and hemoglobin has improved.
-Patient possibly developed some vasovagal reaction post enema/complaining of significant rectal pain.
-Hold antihypertensives/diuretics
-Continue Midodrine and hold Midodrine for SBP>120 mmHg
Rectal pain
-Improved after large bowel movement
Constipation
-Secondary to stool impaction in the rectum
-Bowel regimen with Miralax daily
-Continue PPI
-Eventual colonoscopy consideration
Minimal dyspepsia by the ER physician
GI consulted -- bowel regimen as per GI
High TSH
-Recheck Thyroid studies outpatient
-Adjust levothyroxine at outpatient follow-up
Symptomatic anemia, likely secondary to GI blood loss and hemoglobin around 6.8 and his baseline around 9-10
Yes, concern for GI bleed is related to/exacerbated by Xarelto
-1 unit ordered for transfusion with improvement in Hgb with good improvement in Hgb
-Monitor H&H closely
-Iron panel with iron 59, TIBC 296, % sats 19 and Ferritin low at 13.5 -- will start iron
-Oral iron on discharge
-B12 WNL and folic acid elevated
-GI consult
-Likely upper GI continue Protonix IV twice daily
-Initially was holding Xarelto as it could increase risk with embolism and stroke was discussed with the patient and expressed understanding.
-Continue Xarelto and monitor Hgb/vital signs
Chronic kidney disease, his baseline around 1.7-2 today is 2.2
We nephrotoxin
Recheck
Chronic systolic congestive heart failure EF around 41%, stable no evidence of fluid overload
Closely monitor.
Diabetes mellitus on insulin, continue Lantus
Glucoscan
A-fib continue bisoprolol while holding Eliquis as discussed.
All discussed with the patient in detail and expressed understanding
CODE STATUS full code
DVT Prophylaxis: SCD. Xarelto.
More than 30 minutes spent in discharge including
Final examination of the patient
Summarizing hospital stay
Instructions for continuing care to all relevant caregivers
Preparation of discharge records, prescriptions, and referral forms
Total time spent (in minutes): 42
Anticipated Discharge: Today
Subjective/Interval History
-
Date of Service: April 01, 2024
Patient was seen and examined. He denied any new symptoms or complaints.
Objective Data
-
Labs:
Laboratory Results
04/01/24
08:27
WBC 7.8
Hgb 7.8 L
Hct 24.1 L
Plt Count 234
Sodium 140
Potassium 4.3
Chloride 107
Carbon Dioxide 22
BUN 30 H
Creatinine 2.2 H
Glucose 98
Calcium 8.6
Vital Signs:
Vital Signs
Temp Pulse Resp BP Pulse Ox
97.9 F 65 20 131/51 100
04/01/24 11:18 04/01/24 11:18 04/01/24 11:18 04/01/24 11:18 04/01/24 11:18
I&O
03/31/24 04/01/24 04/02/24
06:59 06:59 06:59
Intake Total 900 / 900 1200 / 1200
Output Total 1000 / 1000 800 / 800
Balance -100 / -100 400 / 400
--- NOTE | 2024-04-01 12:46 | CM ---
manager agricultural reviewed patient's chart and plan is to home with spouse when stable, patient would benefit from PT/OT evaluations.
Plan; Home when stable.
--- NOTE | 2024-04-01 13:35 | PTCARENOTE ---
Quiroz pulled at 1330 as ordered. Urinal provided , voiding trial to begin .
[2024-04-01] MEDS: NOVOLOG FLEXPEN-LOW RESISTANCE 2 UNITS SC (14:54)
[2024-04-01 15:32] VITALS: BP 143/55
[2024-04-01 16:47] LABS: Glucose - Point of Care 255 mg/dl (70-99)
[2024-04-01] MEDS: NOVOLOG FLEXPEN-LOW RESISTANCE 3 UNITS SC (17:10)
[2024-04-01] MEDS: LIPITOR 40 MG PO (17:20)
[2024-04-01] MEDS: XARELTO 15 MG PO (17:21)
[2024-04-01] MEDS: FERRLECIT 110 MG IV (17:45)
--- NOTE | 2024-04-01 18:09 | PTCARENOTE ---
Pt to bathroom, voided and had a bm. Voided 180 x 2 in urinal.
--- NOTE | 2024-04-01 19:07 | PTCARENOTE ---
Midodrine held today- hospitalist aware,
[2024-04-01 19:30] VITALS: BP 106/62
[2024-04-01] MEDS: SENOKOT-S PO (19:52)
[2024-04-01 21:36] LABS: Glucose - Point of Care 214 mg/dl (70-99)
[2024-04-01] MEDS: LANTUS 0.15 UNITS SC (22:10)
[2024-04-01 23:40] VITALS: BP 140/65
[2024-04-02] VITALS (8 sets, daily range): BP systolic 100–163; BP diastolic 46–76; PULSE 62; O2SAT 100; BMI 26.9
[2024-04-02] MEDS: SYNTHROID 200 MCG PO (06:08)
[2024-04-02] MEDS: SYNTHROID 50 MCG PO (06:08)
[2024-04-02] MEDS: NOVOLOG FLEXPEN-LOW RESISTANCE SC ×3 (08:02→18:40)
[2024-04-02] MEDS: ASPIR LOW (ENTERIC COATED) 81 MG PO (08:03)
[2024-04-02] MEDS: FLOMAX 0.4 MG PO (08:03)
[2024-04-02] MEDS: THERAGRAN 1 TABLET PO (08:04)
[2024-04-02] MEDS: SENOKOT-S 2 TABLET PO (08:04)
[2024-04-02] MEDS: PROSCAR 5 MG PO (08:04)
[2024-04-02] MEDS: ProAmatine PO ×3 (08:04→18:40)
[2024-04-02 08:05] LABS: Glucose - Point of Care 125 mg/dl (70-99)
[2024-04-02] MEDS: PROTONIX 40 MG PO ×2 (08:05→20:07)
[2024-04-02] MEDS: MEXITIL 150 MG PO ×3 (08:05→22:38)
[2024-04-02] MEDS: MIRALAX 17 GRAMS PO (08:06)
[2024-04-02 09:48] LABS: Hematocrit 25.2 % (39.0-52.0); Hemoglobin 8.3 g/dL (13.0-18.0); Mean Corp Hgb Conc. 32.9 g/dL (33.0-37.0); Mean Corpuscular Hgb 31.7 pg (27.0-31.0); Mean Corpuscular Volume 96.2 fL (80.0-94.0); Mean Platelet Volume 9.8 fL (7.4-10.4); Platelet Count 252 10^3/uL (130-400); Red Blood Cell Count 2.62 10^6/uL (4.70-6.10); White Blood Cell Count 5.2 10^3/uL (4.8-10.8)
[2024-04-02 10:23] LABS: Blood Urea Nitrogen 25 mg/dl (9-20); Calcium 8.9 mg/dl (8.4-10.2); Carbon Dioxide 25 mmol/L (22-30); Chloride 107 mmol/L (98-107); Estimated Creatinine Clearance 22 ml/min; Glucose 104 mg/dl (70-99); Potassium 4.4 mmol/L (3.5-5.1); Sodium 143 mmol/L (135-145); eGFR 30.28
[2024-04-02 11:43] LABS: Glucose - Point of Care 137 mg/dl (70-99)
--- NOTE | 2024-04-02 12:36 | CM ---
Patient is for discharge to home today with spouse.
Plan; Home with spouse.
[2024-04-02] MEDS: FERRLECIT 110 MG IV (13:36)
--- NOTE | 2024-04-02 14:13 | W.PN.HOSP.TC ---
Addendum entered and electronically signed by Dexter Yo MD 04/02/24 18:27:
Discharged cancelled, as patient's son wants patient's Hgb to improve further and patient's said that she cannot take care of patient at home, and they both stated they want patient to stay in the hospital.
Original Note:
Today's Communication/Plan
-
Discharge today
Assessment / Plan
Assessment / Plan
Physical exam
General: Not in acute distress
HEENT: Normocephalic
Neck: Supple
Respiratory: CTAB
Cardio: S1, S2 regular, normal rate
Gastrointestinal: Positive bowel sounds, soft, nontender
Extremities: No pitting edema, good peripheral pulses, good range of motion
Skin: Warm and dry
Neurological: Awake, alert and oriented x3
Psychiatric: Calm
Impression:
Abdominal aortic aneurysm with maximum AP dimension of 3.2 cm measurements slightly larger than previous examination, previously having maximum AP dimension of 2.9 cm, needs regular follow-up as an outpatient
IMPRESSION:
54-year-old male with history of A-fib anticoagulated with Eliquis and history of presented to the hospital complaining of the constipation and difficulty urinating, workup showed stercoral colitis and stool impaction and urine retention also
noticed his hemoglobin around 6.9 stool was positive.
84M presented for anemia (Hgb 6.8), guaiac + stool, on Xarelto, received a unit of blood. Fatigue worsening for a few weeks. Initially presented with concerns of decreased BMs over the past few days. Unable to urinate on 03/29/24. PVR of 840 today,
Quiroz was placed.
Hypotension
-Did not require vasopressors and blood pressure improved
-No evidence for acute GI bleed and hemoglobin has improved.
-Patient possibly developed some vasovagal reaction post enema/complaining of significant rectal pain.
-Hold antihypertensives/diuretics
-Continue Midodrine and hold Midodrine for SBP>120 mmHg
Rectal pain
-Improved after large bowel movement
Constipation
-Secondary to stool impaction in the rectum
-Bowel regimen with Miralax daily
-Continue PPI
-Eventual colonoscopy consideration
Minimal dyspepsia by the ER physician
GI consulted -- bowel regimen as per GI
High TSH
-Recheck Thyroid studies outpatient
-Adjust levothyroxine at outpatient follow-up
Symptomatic anemia, likely secondary to GI blood loss and hemoglobin around 6.8 and his baseline around 9-10
Yes, concern for GI bleed is related to/exacerbated by Xarelto
-1 unit ordered for transfusion with improvement in Hgb with good improvement in Hgb
-Monitor H&H closely
-Iron panel with iron 59, TIBC 296, % sats 19 and Ferritin low at 13.5 -- will start iron
-Oral iron on discharge
-B12 WNL and folic acid elevated
-GI consult
-Likely upper GI continue Protonix IV twice daily
-Initially was holding Xarelto as it could increase risk with embolism and stroke was discussed with the patient and expressed understanding.
-Continue Xarelto and monitor Hgb/vital signs
Chronic kidney disease, his baseline around 1.7-2 today is 2.2
We nephrotoxin
Recheck
Chronic systolic congestive heart failure EF around 41%, stable no evidence of fluid overload
Closely monitor.
Diabetes mellitus on insulin, continue Lantus
Glucoscan
A-fib continue bisoprolol while holding Eliquis as discussed.
All discussed with the patient in detail and expressed understanding
CODE STATUS full code
DVT Prophylaxis: SCD. Xarelto.
More than 30 minutes spent in discharge including
Final examination of the patient
Summarizing hospital stay
Instructions for continuing care to all relevant caregivers
Preparation of discharge records, prescriptions, and referral forms
Total time spent (in minutes): 40
Anticipated Discharge: Today
Subjective/Interval History
-
Date of Service: April 02, 2024
Patient was seen and examined. He denied any dizziness, chest pain or any other symptoms or complaints.
Objective Data
-
Labs:
Laboratory Results
04/02/24
09:29
WBC 5.2
Hgb 8.3 L
Hct 25.2 L
Plt Count 252
Sodium 143
Potassium 4.4
Chloride 107
Carbon Dioxide 25
BUN 25 H
Creatinine 2.1 H
Glucose 104 H
Calcium 8.9
Vital Signs:
Vital Signs
Temp Pulse Resp BP Pulse Ox
97.7 F 62 14 154/50 100
04/02/24 11:39 04/02/24 11:39 04/02/24 11:39 04/02/24 11:39 04/02/24 11:39
I&O
04/01/24 04/02/24 04/03/24
06:59 06:59 06:59
Intake Total 1200 / 1200 600 / 600
Output Total 800 / 800 820 / 820
Balance 400 / 400 -220 / -220
--- NOTE | 2024-04-02 17:43 | PTCARENOTE ---
Addendum entered by Ann Patel RN 04/02/24 19:00:
late entry 1815-as per Dr. Ceja patient's discharge cancelled. Patient wheeled back to room 435-2.
Addendum entered by Ann Patel RN 04/02/24 18:54:
late entry call from lexii at 17:23. Son very angry and demanding to speak with Dr Ceja. Son stating that he did not know that patient was going to be discharged and wants him to go to [facility] for rehab to gain strength. Patient's chart reviewed and
as per case management note patient was to be discharged to home with . [place] texted Dr ceja with patient's son and 's concerns.
Original Note:
RN application tester-Late entry 1630 Patient cleared for d/c. Reviewed with patient the Dc instructions. Call placed to patient's who said she would pick patient up, but would have to get someone to come with her to pick the patient up in the dc
lounge. Patient packed up and transported to the DC lounge.
--- NOTE | 2024-04-02 18:25 | PTCARENOTE ---
04/02- Patient readmitted d/t family refusing discharge. AAOX3, Skin CDI. No complaints other than confusion as to why he's back. Educated on situation and advised CM will help figure it out tomorrow. He verbalized understanding. Teley NSR at
this time.
[2024-04-02] MEDS: LIPITOR 40 MG PO (18:38)
[2024-04-02] MEDS: XARELTO 15 MG PO (18:38)
[2024-04-02 18:41] LABS: Glucose - Point of Care 203 mg/dl (70-99)
[2024-04-02] MEDS: SENOKOT-S PO (20:08)
[2024-04-02 22:33] LABS: Glucose - Point of Care 242 mg/dl (70-99)
[2024-04-02] MEDS: LANTUS 0.15 UNITS SC (22:36)
[2024-04-03 03:06] VITALS: BP 104/73
[2024-04-03 06:00] VITALS: BMI 26.1
[2024-04-03] MEDS: SYNTHROID 200 MCG PO (06:02)
[2024-04-03] MEDS: SYNTHROID 50 MCG PO (06:02)
[2024-04-03 07:20] LABS: Glucose - Point of Care 88 mg/dl (70-99)
[2024-04-03 07:30] VITALS: BP 92/56
[2024-04-03] MEDS: NOVOLOG FLEXPEN-LOW RESISTANCE SC (08:13)
[2024-04-03] MEDS: THERAGRAN 1 TABLET PO (08:14)
[2024-04-03] MEDS: SENOKOT-S 2 TABLET PO ×2 (08:14→20:57)
[2024-04-03] MEDS: ASPIR LOW (ENTERIC COATED) 81 MG PO (08:14)
[2024-04-03 08:15] VITALS: BMI 26.1
[2024-04-03] MEDS: FLOMAX 0.4 MG PO (08:15)
[2024-04-03] MEDS: PROSCAR 5 MG PO (08:15)
[2024-04-03] MEDS: MEXITIL 150 MG PO ×3 (08:15→23:42)
[2024-04-03] MEDS: PROTONIX 40 MG PO ×2 (08:15→20:57)
[2024-04-03] MEDS: MIRALAX 17 GRAMS PO (08:16)
[2024-04-03] MEDS: ProAmatine PO ×2 (08:21→17:24)
[2024-04-03 09:31] LABS: Hematocrit 27.6 % (39.0-52.0); Mean Corp Hgb Conc. 32.6 g/dL (33.0-37.0); Mean Corpuscular Hgb 31.3 pg (27.0-31.0); Mean Corpuscular Volume 95.8 fL (80.0-94.0); Platelet Count 290 10^3/uL (130-400); Red Blood Cell Count 2.88 10^6/uL (4.70-6.10); White Blood Cell Count 5.7 10^3/uL (4.8-10.8)
[2024-04-03 09:55] LABS: Blood Urea Nitrogen 21 mg/dl (9-20); Calcium 9.3 mg/dl (8.4-10.2); Carbon Dioxide 24 mmol/L (22-30); Chloride 108 mmol/L (98-107); Estimated Creatinine Clearance 23 ml/min; Glucose 87 mg/dl (70-99); Magnesium 2.4 mg/dl (1.6-2.3); Potassium 4.4 mmol/L (3.5-5.1); Sodium 141 mmol/L (135-145)
[2024-04-03 11:43] LABS: Glucose - Point of Care 188 mg/dl (70-99)
[2024-04-03] MEDS: NOVOLOG FLEXPEN-LOW RESISTANCE 1 UNITS SC (13:00)
[2024-04-03] MEDS: ProAmatine 5 MG PO (13:08)
--- NOTE | 2024-04-03 14:08 | CM ---
Per physician request for PM&R placed, family asking about [facility], patient is currently ambulating 160 feet with walker and supervision. craft manager reached out to patient's spouse, patient's son was at work and explained that patient currently
does not meet acute rehab or skilled rehab, caseworker offered to make a referral to [facility].
IMM completed and placed on chart
Plan; Referral sent to PM&R waiting on update from physicians.
[2024-04-03 15:00] VITALS: BP 149/59
[2024-04-03] MEDS: FERRLECIT 110 MG IV (15:00)
--- NOTE | 2024-04-03 15:21 | VNURNOTE ---
Home Health Liaison met with patient at bedside to discuss [facility] nurse/therapy, visits, schedule and homebound status. Patient is agreeable and understands that visits at home will be 2-3 x per week to assess and teach medical management. [facility]
brochure provided with contact information. Patient is aware that [facility] will contact them for start of care in 1-2 days after discharge from . Patient confirms he has a scale at home. [facility] referral completed in [facility].
--- NOTE | 2024-04-03 15:36 | CON.MD ---
Addendum entered and electronically signed by Hernandez Patiño MD 04/03/24 17:30:
<del>Left�nondominant</del> <del>hemiparesis:</del> <del>High</del> <del>risk</del> <del>for</del> <del>falls</del> <del>and</del> <del>sliding</del> <del>out</del> <del>of</del> <del>chair/bed.</del> <del>Safety</del> <del>reinforced.</del>
Original Note:
Consultation - Medical
-
Referring Provider:�Dr. Dexter Ceja
Chief Complaint:�Debility
�
History of Present Illness:�84-year-old male with PMH (as below) presented to [facility] on 03/29/2024 with constipation. Hemoglobin noted to be 6.[address] of the abdomen to have stool impaction which was manually disimpacted in
the ER, positive occult blood in stool. Required transfusion. Also with urinary retention requiring Quiroz catheter. Started on Protonix. Developed hypotension and required admission to the ICU after having multiple bowel movements after enema.
Echocardiogram with EF 53% improved from 41% previously, mild hypokinesis globally. Started on midodrine and antihypertensives were held. Given IV iron for iron deficiency. Per notes patient's and son are not able to take care of him at home.
Past Medical History:�type 2 diabetes, paroxysmal A-fib on blood thinner, hypertension, COPD, CAD, CKD stage IIIb, hypothyroidism, hyperlipidemia, bladder cancer, PID, CVA
Procedure History:�Loop recorder, shoulder surgery
Family History:�Denies����
�
Social History:�
Functional Level Premorbidly:�Independent with all activities�
Functional Level Currently:�Supervision for ADLs. Supervision for transfers and ambulating 160 feet with rolling walker.
�
Tobacco:�Former, quit 15 years ago
Alcohol:�Denies�
Drug use:�Denies�
�
Lives With: and son
24-hour assistance available: Yes
Number of floors: 2�split-level home
# steps to enter: none
Driving: no
Occupation: retired�
�
�
Allergies:�
Allergy/AdvReac Type Severity Reaction Status Date / Time
SYDNI Inhibitors Allergy Unknown Verified 03/29/24 14:02
�
Review of Systems:�
Constitutional: (x) Normal _
Eye: (x) Normal _
Ear/Nose/Throat: (x) Normal _
Respiratory: (x) COPD
Cardiovascular: (x) atrial fibrillation, hypertension, hyperlipidemia
Gastrointestinal: (x) Normal _
Genitourinary: (x) Normal _
Musculoskeletal: (x) left shoulder pain._
Integumentary: (x) Normal _
Neurologic: (x) stroke, dysphagia
Psychiatric: (x) Normal _
Endocrine: (x) hypothyroidism
Hematologic/Lymphatic: (x) Normal _
Allergic/Immunologic: (x) Normal _
�
Medications:�
Active Current Visit Medication List
Category Date Time Status
Aspirin Low Dose EC [Aspir Low (Enteric Coated)] Med 03/30/24 14:00 Active
81 mg PO DAILY
Atorvastatin [Lipitor] Med 03/30/24 18:00 Active
40 mg PO QPM
Bisoprolol Fumarate [Zebeta] Med 03/30/24 08:00 Hold
5 mg PO DAILY
Bumetanide [Bumex] Med 03/30/24 08:00 Hold
0.5 mg PO DAILY
Dextrose 50%-Water [Dextrose 50% Syringe] Med 03/29/24 20:59 Active
12.5 grams IV [id number] PRN
Docusate W/Senna [Senokot-S] Med 03/29/24 20:00 Active
2 tablet PO BID
Ferric Gluconate [Ferrlecit] 125 mg Med 04/01/24 17:30 Active
0.9% Sodium Chloride 100 ml [Nss] 100 ml
IV DAILY@1400
Finasteride [Proscar] Med 03/30/24 08:00 Active
5 mg PO DAILY
Flush (0.9% Sodium Chloride) [Flush (Nss)] Med 03/29/24 22:00 Active
See Dose Instructions IV PER PROTOCOL
Glucagon [GlucaGen] Med 03/29/24 20:59 Active
1 mg IM PRN PRN
Insulin Aspart Corrective Low [Novolog Flexpen-Low Med 03/30/24 07:30 Active
Resistance]
See Protocol SC AC
Insulin Glargine Lantus [Lantus] 15 units Med 03/29/24 22:00 Active
Subcutaneous Insulin Syringe [Syringe-Insulin] 0 unit
SC HS
Levothyroxine [Synthroid] Med 03/30/24 06:00 Active
200 mcg PO DAILY@0600
Levothyroxine [Synthroid] Med 03/30/24 06:00 Active
50 mcg PO DAILY@0600
Mexiletine [Mexitil] Med 03/30/24 00:00 Active
150 mg PO Q8
Midodrine [ProAmatine] Med 03/30/24 13:30 Active
5 mg PO TID@0800,1300,1800
Multivitamin [Theragran] Med 03/30/24 14:00 Active
1 tablet PO DAILY
Pantoprazole [Protonix] Med 03/31/24 20:00 Active
40 mg PO BID
Polyethylene Glycol Powder [Miralax] Med 03/30/24 15:00 Active
17 grams PO DAILY
Rivaroxaban [Xarelto] Med 03/31/24 18:00 Active
15 mg PO QPM
Tamsulosin [Flomax] Med 03/30/24 08:00 Active
0.4 mg PO DAILY
�
Vitals:�
Temp Pulse Resp BP Pulse Ox
97.6 F 82 18 132/85 99
04/03/24 07:30 04/03/24 08:21 04/03/24 07:30 04/03/24 08:21 04/03/24 08:15
Height 5 ft 4 in
Actual Weight 69.031 kg
Body Mass Index (BMI) 26.1
�
Physical Exam:�
General Appearance/Observation: Well-developed, well-nourished male in no apparent distress.
Pain/Comfort Assessment: Denies
Mood/Affect: Appropriate
Integumentary/Operative Site: Has IV
�
Eyes: Conjunctiva/Lids: normal ���� Pupils: pupils equal round and reactive to light and Accommodation
Ears/Nose/Throat: oral mucosa moist,� throat clear.������������� Lips/Teeth/Gums: normal
Neck: No muscle spasm or tenderness. Did not check left side due to surgery
Cardiovascular: Heart: regular, no murmur
Pulses: dorsalis pedis 1+ bilaterally
Respiratory: Respiratory Effort/Chest Expansion: normal.��������� Auscultation: Clear to auscultation bilaterally
Gastrointestinal: abdomen not tender, no distension, normal abdominal bowel sounds
Genitourinary: No Quiroz
Extremities: Edema: None Cyanosis: None Trophic changes: None
Neurology Exam:
Orientation: Not oriented to place, time
Memory: impaired
Repetition: impaired
Comprehension: impaired
Two step command: impaired
Naming: Intact
Cranial Nerves:
�� CNII: Pupillary light reflex: Intact��� Visual Field:
�� CN III, IV, : Extraocular muscles: Intact
�� CN V: Facial Sensation at Forehead: Intact , Maxilla: Intact, Mandible: Intact
�� CN VII: Facial movement: Symmetric
�� CN VIII: Hearing: Normal
�� CN IX/X: Speech & swallow: Normal Position of Uvula: Midline
�� CN XI: Shoulder shrug: decreased on the left side not sure due to weakness versus post surgery.
�� CN XII: Tongue protrusion: Midline
Sensory:
�� Light touch: Intact in bilateral upper and lower extremities
��
Musculoskeletal: Motor: (Manual muscle scale 0-5)
Muscle SA EF WE EE FF FA HF KE DF EHL PF
Right� 5 5 5 5 5 5 4 5 5 5 5
Left 4 5 5 5 5 5 4 5 5 5 5
Tone: Normal in all extremities. Did not test left upper extremity
Range of Motion: Passively within normal limits in all extremities, except did not fully test left shoulder
Lab Results
Laboratory Data
04/03/24 09:03
04/03/24 09:03
PT 16.1 Sec (11.4-14.6) H 03/31/24 05:08
INR 1.31 03/31/24 05:08
APTT 36.3 Sec (23.4-35.0) H 03/30/24 12:57
Total Bilirubin 0.8 mg/dl (0.2-1.3) 03/30/24 10:00
AST 27 U/L (17-59) 03/30/24 10:00
ALT 23 U/L (0-50) 03/30/24 10:00
Alkaline Phosphatase 85 U/L (38-126) 03/30/24 10:00
Total Protein 5.9 g/dl (6.3-8.2) L 03/30/24 10:00
Albumin 3.3 g/dl (3.5-5.0) L 03/30/24 10:00
�
Diagnostic Results:�as per HPI�
�
Assessment
84-year-old male with past medical history of paroxysmal A-fib, hypertension, hyperlipidemia, COPD, hyperlipidemia, status post left total shoulder replacement status post fall with slurred speech and multiple prominent acute to subacute infarcts
within the right cerebellum and a few punctate infarcts within the right temporal parietal lobes with embolic pattern affecting left side of the body.
Plan�
PM&R�PT/OT to increase independence with ADLs, improve balance, coordination, endurance, strength, mobility, community reintegration, decreased burden of care on others and family education.�
�
CVA: Secondary prophylaxis with aspirin, Atorvastatin, and blood pressure control. Continue to monitor neurologic status.
Left� nondominant hemiparesis: High risk for falls and sliding out of chair/bed. Safety reinforced.
Left total reverse shoulder replacement: Doing better with range of motion and activity.
HTN: Bisoprolol for rate control. Started on midodrine for hypotension. Monitor closely.
HLD: Statin
Coronary artery disease: Aspirin, statin, beta-alex
DON: bun 28, creat-2.1
Atrial fibrillation:� Xarelto 2.5mg bid and bisoprolol.������������������������������������������
DM II: Accu-Cheks, insulin sliding scale, Lantus increased and Aspart. Monitor
Hypothyroidism: levothyroxine.
COPD: not on meds
Anemia:Required transfusion, given iron
Psych: Psychology consult.� Monitor mood, medications as needed.
Pain: acetaminophen as needed
Stercoral colitis: Resolved with medications, on MiraLAX
Bladder: Urinary retention requiring Quiroz, on Flomax and finasteride. Void trial.
GI Prophylaxis: Famotidine
DVT Prophylaxis: mechanical and xarelto
Pulmonary: Incentive spirometry
Safety: Continue to reinforce assistance with all transfers.
Code Status:� Full code
Dispo�(date/plan/equipment needs): Home with family care.
Functional and Medical Goals:�Modified Independent with ADL�s, ambulation, transfers�
Discharge Destination:�Home with home care based upon functional status, discussed with case management
�
Thank you for allowing me to care for your patient. Please contact me with any questions or concerns.
--- NOTE | 2024-04-03 15:57 | W.PN.HOSP.TC ---
Today's Communication/Plan
-
Continue IV iron, Hgb has improved.
Resume Bisoprolol
Assessment / Plan
Assessment / Plan
Physical exam
General: Not in acute distress
HEENT: Normocephalic
Neck: Supple
Respiratory: CTAB
Cardio: S1, S2 regular, normal rate
Gastrointestinal: Positive bowel sounds, soft, nontender
Extremities: No cyanosis.
Skin: Warm and dry
Neurological: Awake, alert and oriented x3
Psychiatric: Calm
Impression:
Abdominal aortic aneurysm with maximum AP dimension of 3.2 cm measurements slightly larger than previous examination, previously having maximum AP dimension of 2.9 cm, needs regular follow-up as an outpatient
IMPRESSION:
54-year-old male with history of A-fib anticoagulated with Eliquis and history of presented to the hospital complaining of the constipation and difficulty urinating, workup showed stercoral colitis and stool impaction and urine retention also
noticed his hemoglobin around 6.9 stool was positive.
84M presented for anemia (Hgb 6.8), guaiac + stool, on Xarelto, received a unit of blood. Fatigue worsening for a few weeks. Initially presented with concerns of decreased BMs over the past few days. Unable to urinate on 03/29/24. PVR of 840 today,
Quiroz was placed.
Hypotension
-Did not require vasopressors and blood pressure improved
-No evidence for acute GI bleed and hemoglobin has improved.
-Patient possibly developed some vasovagal reaction post enema/complaining of significant rectal pain.
-Resume Bisoprolol. Continue to hold Bumetanide.
-Continue Midodrine and hold Midodrine for SBP>120 mmHg
Rectal pain
-Improved after large bowel movement
Constipation
-Secondary to stool impaction in the rectum
-Bowel regimen with Miralax daily
-Continue PPI
-Eventual colonoscopy consideration
Minimal dyspepsia by the ER physician
GI consulted -- bowel regimen as per GI
High TSH
-Recheck Thyroid studies outpatient
-Adjust levothyroxine at outpatient follow-up
Symptomatic anemia, likely secondary to GI blood loss and hemoglobin around 6.8 and his baseline around 9-10
Yes, concern for GI bleed is related to/exacerbated by Xarelto
-1 unit ordered for transfusion with improvement in Hgb with good improvement in Hgb
-Monitor H&H closely
-Iron panel with iron 59, TIBC 296, % sats 19 and Ferritin low at 13.5 -- will start iron
-Oral iron on discharge
-B12 WNL and folic acid elevated
-GI consult
-Likely upper GI continue Protonix IV twice daily
-Initially was holding Xarelto as it could increase risk with embolism and stroke was discussed with the patient and expressed understanding.
-Continue Xarelto and monitor Hgb/vital signs
Chronic kidney disease, his baseline around 1.7-2 today is 2.0
We nephrotoxin
Recheck
Chronic systolic congestive heart failure EF around 41%, stable no evidence of fluid overload
Closely monitor.
Diabetes mellitus on insulin, continue Lantus
Glucoscan
A-fib continue bisoprolol and continue Xarelto.
All discussed with the patient in detail and expressed understanding
CODE STATUS full code
DVT Prophylaxis: SCD. Xarelto.
Anticipated Discharge: 24 - 48 hours
Subjective/Interval History
-
Date of Service: April 03, 2024
Patient was seen and examined. He reported no pain or any symptoms or complaints whatsoever.
Objective Data
-
Labs:
Laboratory Results
04/03/24
09:03
WBC 5.7
Hgb 9.0 L
Hct 27.6 L
Plt Count 290
Sodium 141
Potassium 4.4
Chloride 108 H
Carbon Dioxide 24
BUN 21 H
Creatinine 2.0 H
Glucose 87
Calcium 9.3
Vital Signs:
Vital Signs
Temp Pulse Resp BP Pulse Ox
97.6 F 82 18 132/85 99
04/03/24 07:30 04/03/24 08:21 04/03/24 07:30 04/03/24 08:21 04/03/24 08:15
I&O
04/02/24 04/03/24 04/04/24
06:59 06:59 06:59
Intake Total 600 / 600 240 / 240
Output Total 820 / 820
Balance -220 / -220 240 / 240
[2024-04-03 17:07] LABS: Glucose - Point of Care 226 mg/dl (70-99)
[2024-04-03] MEDS: NOVOLOG FLEXPEN-LOW RESISTANCE 2 UNITS SC (17:23)
[2024-04-03] MEDS: XARELTO 15 MG PO (17:23)
[2024-04-03] MEDS: LIPITOR 40 MG PO (17:23)
[2024-04-03 19:58] VITALS: BP 147/75
[2024-04-03 21:24] LABS: Glucose - Point of Care 229 mg/dl (70-99)
[2024-04-03] MEDS: LANTUS 0.15 UNITS SC (21:28)
[2024-04-03 22:54] VITALS: BP 114/68
[2024-04-04] VITALS (7 sets, daily range): BP systolic 89–146; BP diastolic 50–98; BMI 26.0
[2024-04-04] MEDS: SYNTHROID 200 MCG PO (06:06)
[2024-04-04] MEDS: SYNTHROID 50 MCG PO (06:06)
[2024-04-04 08:47] LABS: Glucose - Point of Care 119 mg/dl (70-99)
[2024-04-04] MEDS: NOVOLOG FLEXPEN-LOW RESISTANCE SC (09:01)
[2024-04-04] MEDS: PROTONIX 40 MG PO ×2 (09:04→19:47)
[2024-04-04] MEDS: SENOKOT-S PO ×2 (09:05→19:49)
[2024-04-04] MEDS: THERAGRAN 1 TABLET PO (09:05)
[2024-04-04] MEDS: MEXITIL 150 MG PO ×2 (09:05→15:41)
[2024-04-04] MEDS: FLOMAX 0.4 MG PO (09:05)
[2024-04-04] MEDS: ASPIR LOW (ENTERIC COATED) 81 MG PO (09:05)
[2024-04-04] MEDS: PROSCAR 5 MG PO (09:05)
[2024-04-04] MEDS: MIRALAX PO (09:05)
[2024-04-04] MEDS: ZEBETA 5 MG PO (09:06)
[2024-04-04] MEDS: ProAmatine PO ×2 (09:07→17:10)
[2024-04-04 12:15] LABS: Glucose - Point of Care 187 mg/dl (70-99)
[2024-04-04] MEDS: NOVOLOG FLEXPEN-LOW RESISTANCE 1 UNITS SC (12:35)
[2024-04-04] MEDS: ProAmatine 5 MG PO (12:39)
[2024-04-04] MEDS: FERRLECIT 110 MG IV (13:58)
[2024-04-04 14:05] LABS: Hematocrit 25.6 % (39.0-52.0); Hemoglobin 8.6 g/dL (13.0-18.0); Mean Corp Hgb Conc. 33.6 g/dL (33.0-37.0); Mean Corpuscular Hgb 31.5 pg (27.0-31.0); Mean Corpuscular Volume 93.8 fL (80.0-94.0); Mean Platelet Volume 9.6 fL (7.4-10.4); Platelet Count 275 10^3/uL (130-400); Red Blood Cell Count 2.73 10^6/uL (4.70-6.10); Red Cell Dist. Width 15.1 % (11.5-14.5); White Blood Cell Count 7.2 10^3/uL (4.8-10.8)
[2024-04-04 14:19] LABS: Blood Urea Nitrogen 22 mg/dl (9-20); Carbon Dioxide 22 mmol/L (22-30); Chloride 107 mmol/L (98-107); Estimated Creatinine Clearance 22 ml/min; Glucose 246 mg/dl (70-99); Magnesium 2.3 mg/dl (1.6-2.3); Potassium 4.4 mmol/L (3.5-5.1); Sodium 141 mmol/L (135-145); eGFR 30.28
[2024-04-04 16:33] LABS: Glucose - Point of Care 254 mg/dl (70-99)
--- NOTE | 2024-04-04 16:42 | W.PN.HOSP.TC ---
Today's Communication/Plan
-
Hold Bisoprolol again due to hypotension and pauses on tele
Cardiology consulted regarding the above, appreciate evaluation and recommendations
Assessment / Plan
Assessment / Plan
Physical exam
General: Not in acute distress
HEENT: Normocephalic
Neck: Supple
Respiratory: CTAB
Cardio: S1, S2 regular, normal rate
Gastrointestinal: Positive bowel sounds, soft, nontender
Extremities: No cyanosis.
Skin: Warm and dry
Neurological: Awake, alert and oriented x3
Psychiatric: Calm
Impression:
Abdominal aortic aneurysm with maximum AP dimension of 3.2 cm measurements slightly larger than previous examination, previously having maximum AP dimension of 2.9 cm, needs regular follow-up as an outpatient
IMPRESSION:
54-year-old male with history of A-fib anticoagulated with Eliquis and history of presented to the hospital complaining of the constipation and difficulty urinating, workup showed stercoral colitis and stool impaction and urine retention also
noticed his hemoglobin around 6.9 stool was positive.
84M presented for anemia (Hgb 6.8), guaiac + stool, on Xarelto, received a unit of blood. Fatigue worsening for a few weeks. Initially presented with concerns of decreased BMs over the past few days. Unable to urinate on 03/29/24. PVR of 840 today,
Quiroz was placed.
Hypotension
-Did not require vasopressors and blood pressure improved
-No evidence for acute GI bleed and hemoglobin has improved.
-Patient possibly developed some vasovagal reaction post enema/complaining of significant rectal pain.
-Resumed Bisoprolol --> however blood pressure dropped and also pauses on tele-->Bisoprolol placed back on hold
-Continue to hold Bumetanide
-Continue Midodrine and hold Midodrine for SBP>120 mmHg
Rectal pain
-Improved after large bowel movement
Constipation
-Secondary to stool impaction in the rectum
-Bowel regimen with Miralax daily
-Continue PPI
-Eventual colonoscopy consideration
Minimal dyspepsia by the ER physician
GI consulted -- bowel regimen as per GI
High TSH
-Recheck Thyroid studies outpatient
-Adjust levothyroxine at outpatient follow-up
Symptomatic anemia, likely secondary to GI blood loss and hemoglobin around 6.8 and his baseline around 9-10
Yes, concern for GI bleed is related to/exacerbated by Xarelto
-1 unit ordered for transfusion with improvement in Hgb with good improvement in Hgb
-Monitor H&H closely
-Iron panel with iron 59, TIBC 296, % sats 19 and Ferritin low at 13.5 -- started IV iron, received 4 doses so far
-No oral iron needed on discharge, patient would need a repeat CBC and iron studies with primary care physician at the end of April 2024
-B12 WNL and folic acid elevated
-GI consult
-Likely upper GI continue Protonix IV twice daily
-Initially was holding Xarelto as it could increase risk with embolism and stroke was discussed with the patient and expressed understanding.
-Continue Xarelto and monitor Hgb/vital signs
Chronic kidney disease, his baseline around 1.7-2 today is 2.0
We nephrotoxin
Recheck
Chronic systolic congestive heart failure EF around 41%, stable no evidence of fluid overload
Closely monitor.
Diabetes mellitus on insulin, continue Lantus
Glucoscan
A-fib continue bisoprolol and continue Xarelto.
All discussed with the patient in detail and expressed understanding
CODE STATUS full code
DVT Prophylaxis: SCD. Xarelto.
Anticipated Discharge: 24 - 48 hours
Subjective/Interval History
-
Date of Service: April 04, 2024
Patient was seen and examined. He denied any dizziness, abdominal pain or any other complaints.
Objective Data
-
Labs:
Laboratory Results
04/04/24
13:50
WBC 7.2
Hgb 8.6 L
Hct 25.6 L
Plt Count 275
Sodium 141
Potassium 4.4
Chloride 107
Carbon Dioxide 22
BUN 22 H
Creatinine 2.1 H
Glucose 246 H
Calcium 9.0
Vital Signs:
Vital Signs
Temp Pulse Resp BP Pulse Ox
98.0 F 60 16 89/52 99
04/04/24 15:00 04/04/24 15:00 04/04/24 15:00 04/04/24 15:00 04/04/24 15:00
I&O
04/03/24 04/04/24 04/05/24
06:59 06:59 06:59
Intake Total 240 / 240 840 / 840
Balance 240 / 240 840 / 840
[2024-04-04] MEDS: NOVOLOG FLEXPEN-LOW RESISTANCE 3 UNITS SC (17:06)
[2024-04-04] MEDS: XARELTO 15 MG PO (17:07)
[2024-04-04] MEDS: LIPITOR 40 MG PO (17:07)
[2024-04-04 22:01] LABS: Glucose - Point of Care 206 mg/dl (70-99)
[2024-04-04] MEDS: LANTUS 0.15 UNITS SC (22:22)
[2024-04-05] VITALS (10 sets, daily range): BP systolic 136–162; BP diastolic 49–77; PULSE 60; O2SAT 100; BMI 26.2
[2024-04-05] MEDS: MEXITIL 150 MG PO ×4 (01:07→23:00)
[2024-04-05] MEDS: SYNTHROID 50 MCG PO (06:01)
[2024-04-05] MEDS: SYNTHROID 200 MCG PO (06:01)
--- NOTE | 2024-04-05 07:55 | W.PN.HOSP.TC ---
Addendum entered and electronically signed by Dexter Yo MD 04/05/24 15:16:
Spoke with manager specialty Dr. Shruti Chau who advised cardiology consult is not needed for GI procedure/colonoscopy (low risk procedure), will hold Xarelto for GI procedure.
Original Note:
Today's Communication/Plan
-
Insulin Aspart added for better mealtime sugar control
GI to do colonoscopy Saturday or Saturday
Hold Xarelto for GI procedure
Cardiology consult for clearance for GI procedure
Assessment / Plan
Assessment / Plan
Physical exam
General: Not in acute distress
HEENT: Normocephalic
Neck: Supple
Respiratory: CTAB
Cardio: S1, S2 regular, normal rate
Gastrointestinal: Positive bowel sounds, soft, nontender
Extremities: No cyanosis.
Skin: Warm and dry
Neurological: Awake, alert and oriented x3
Psychiatric: Calm
Impression:
Abdominal aortic aneurysm with maximum AP dimension of 3.2 cm measurements slightly larger than previous examination, previously having maximum AP dimension of 2.9 cm, needs regular follow-up as an outpatient
IMPRESSION:
54-year-old male with history of A-fib anticoagulated with Eliquis and history of presented to the hospital complaining of the constipation and difficulty urinating, workup showed stercoral colitis and stool impaction and urine retention also
noticed his hemoglobin around 6.9 stool was positive.
84M presented for anemia (Hgb 6.8), guaiac + stool, on Xarelto, received a unit of blood. Fatigue worsening for a few weeks. Initially presented with concerns of decreased BMs over the past few days. Unable to urinate on 03/29/24. PVR of 840 today,
Quiroz was placed.
Hypotension
-Did not require vasopressors and blood pressure improved
-No evidence for acute GI bleed and hemoglobin has improved.
-Patient possibly developed some vasovagal reaction post enema/complaining of significant rectal pain.
-Resumed Bisoprolol --> however blood pressure dropped and also pauses on tele-->Bisoprolol placed back on hold
-Continue to hold Bumetanide
-Continue Midodrine and hold Midodrine for SBP>120 mmHg
Pauses on Telemetry
-Asymptomatic
-Pauses are less than 3 seconds
-Continue to hold Bisoprolol
Rectal pain
-Improved after large bowel movement
Constipation
-Secondary to stool impaction in the rectum
-Bowel regimen with Miralax daily
-Continue PPI
-Eventual colonoscopy consideration
Minimal dyspepsia by the ER physician
GI consulted -- bowel regimen as per GI
High TSH
-Recheck Thyroid studies outpatient
-Adjust levothyroxine at outpatient follow-up
Symptomatic anemia, likely secondary to GI blood loss and hemoglobin around 6.8 and his baseline around 9-10
Yes, concern for GI bleed is related to/exacerbated by Xarelto
-1 unit ordered for transfusion with improvement in Hgb with good improvement in Hgb
-Monitor H&H closely
-Iron panel with iron 59, TIBC 296, % sats 19 and Ferritin low at 13.5 -- completed 5-day course of IV iron
-No oral iron needed on discharge, patient would need a repeat CBC and iron studies with primary care physician at the end of April 2024
-B12 WNL and folic acid elevated
-GI consult
-Likely upper GI continue Protonix IV twice daily
-Initially was holding Xarelto as it could increase risk with embolism and stroke was discussed with the patient and expressed understanding.
-Hold Xarelto as per Dr. Lacey of GI for colonoscopy/endoscopy (see note from Dr. Lacey on 04/05/24)
-Cardiology consulted for clearance for GI scope procedure, appreciate eval and recommendations
Chronic kidney disease, his baseline around 1.7-2 today is 2.0
We nephrotoxin
Recheck
Chronic systolic congestive heart failure EF around 41%, stable no evidence of fluid overload
Closely monitor.
Diabetes mellitus on insulin, continue Lantus
Glucoscan
A-fib continue bisoprolol and hold Xarelto for GI procedure as above
All discussed with the patient in detail and expressed understanding
CODE STATUS full code
DVT Prophylaxis: SCDs.
Anticipated Discharge: > 48 hours
Subjective/Interval History
-
Date of Service: April 05, 2024
Patient was seen and examined. He denied any symptoms or complaints.
Objective Data
-
Labs:
Laboratory Results
04/05/24
07:52
WBC Pending
Hgb Pending
Hct Pending
Plt Count Pending
Sodium Pending
Potassium Pending
Chloride Pending
Carbon Dioxide Pending
BUN Pending
Creatinine Pending
Glucose Pending
Calcium Pending
Vital Signs:
Vital Signs
Temp Pulse Resp BP Pulse Ox
97.9 F 98 19 141/67 98
04/05/24 03:21 04/05/24 03:21 04/05/24 03:21 04/05/24 03:21 04/05/24 03:21
I&O
04/04/24 04/05/24 04/06/24
06:59 06:59 06:59
Intake Total 840 / 840 1250 / 1250
Balance 840 / 840 1250 / 1250
[2024-04-05] MEDS: ProAmatine PO ×3 (07:56→17:20)
[2024-04-05] MEDS: FLOMAX 0.4 MG PO (07:56)
[2024-04-05] MEDS: SENOKOT-S 2 TABLET PO ×2 (07:56→20:04)
[2024-04-05] MEDS: PROTONIX 40 MG PO ×2 (07:56→20:04)
[2024-04-05] MEDS: PROSCAR 5 MG PO (07:56)
[2024-04-05] MEDS: ASPIR LOW (ENTERIC COATED) 81 MG PO (07:57)
[2024-04-05] MEDS: MIRALAX PO (07:57)
[2024-04-05] MEDS: THERAGRAN 1 TABLET PO (07:57)
[2024-04-05] MEDS: NOVOLOG FLEXPEN-LOW RESISTANCE SC (08:01)
[2024-04-05 08:03] LABS: Glucose - Point of Care 111 mg/dl (70-99)
[2024-04-05 08:44] LABS: Hematocrit 27.2 % (39.0-52.0); Hemoglobin 8.9 g/dL (13.0-18.0); Mean Corp Hgb Conc. 32.7 g/dL (33.0-37.0); Mean Corpuscular Hgb 32.2 pg (27.0-31.0); Mean Corpuscular Volume 98.6 fL (80.0-94.0); Mean Platelet Volume 9.6 fL (7.4-10.4); Platelet Count 286 10^3/uL (130-400); Red Blood Cell Count 2.76 10^6/uL (4.70-6.10); Red Cell Dist. Width 15.4 % (11.5-14.5); White Blood Cell Count 6.4 10^3/uL (4.8-10.8)
[2024-04-05 08:55] LABS: Blood Urea Nitrogen 20 mg/dl (9-20); Calcium 8.9 mg/dl (8.4-10.2); Carbon Dioxide 23 mmol/L (22-30); Chloride 107 mmol/L (98-107); Estimated Creatinine Clearance 21 ml/min; Glucose 99 mg/dl (70-99); Potassium 4.1 mmol/L (3.5-5.1); Sodium 143 mmol/L (135-145); eGFR 28.63
[2024-04-05 11:43] LABS: Glucose - Point of Care 215 mg/dl (70-99)
[2024-04-05] MEDS: NOVOLOG FLEXPEN-LOW RESISTANCE 2 UNITS SC ×2 (12:06→17:11)
[2024-04-05] MEDS: NOVOLOG FLEXPEN 3 UNITS SC ×2 (12:06→17:11)
[2024-04-05] MEDS: FERRLECIT 110 MG IV (13:14)
--- NOTE | 2024-04-05 14:34 | W.PN.UPDATE ---
Update Note
Progress Note Update
Called back by hospitalist to consider inpatient endoscopic evaluation of patient's anemia. Has recent stercoral colitis. Hypothyroidism with possible inadequate levothyroxine dosing. On Xarelto for A-fib. Last Xarelto was given on 04/04. Will
need 48 hr wash out. Cardiology evaluation pending. Will tentatively plan for EGD/colonoscopy on 04/07 or 04/08.
[2024-04-05 16:42] LABS: Glucose - Point of Care 207 mg/dl (70-99)
[2024-04-05] MEDS: LIPITOR 40 MG PO (17:09)
[2024-04-05 22:50] LABS: Glucose - Point of Care 223 mg/dl (70-99)
[2024-04-05] MEDS: LANTUS 0.15 UNITS SC (22:58)
[2024-04-06 03:45] VITALS: BP 137/48
[2024-04-06] MEDS: SYNTHROID 200 MCG PO (05:51)
[2024-04-06] MEDS: SYNTHROID 50 MCG PO (05:51)
[2024-04-06 07:24] VITALS: BP 120/73
[2024-04-06 08:19] LABS: Glucose - Point of Care 121 mg/dl (70-99)
[2024-04-06 08:23] LABS: Hematocrit 26.5 % (39.0-52.0); Hemoglobin 8.6 g/dL (13.0-18.0); Mean Corp Hgb Conc. 32.5 g/dL (33.0-37.0); Mean Corpuscular Hgb 31.7 pg (27.0-31.0); Mean Corpuscular Volume 97.8 fL (80.0-94.0); Mean Platelet Volume 9.4 fL (7.4-10.4); Platelet Count 276 10^3/uL (130-400); Red Blood Cell Count 2.71 10^6/uL (4.70-6.10); Red Cell Dist. Width 15.2 % (11.5-14.5)
[2024-04-06 08:47] VITALS: BMI 25.8
[2024-04-06 08:57] LABS: ALT (SGPT) 28 U/L (0-50); AST (SGOT) 42 U/L (17-59); Albumin 3.4 g/dl (3.5-5.0); Alkaline Phosphatase 87 U/L (38-126); Blood Urea Nitrogen 18 mg/dl (9-20); Carbon Dioxide 21 mmol/L (22-30); Chloride 108 mmol/L (98-107); Estimated Creatinine Clearance 22 ml/min; Glucose 103 mg/dl (70-99); Magnesium 2.3 mg/dl (1.6-2.3); Potassium 4.2 mmol/L (3.5-5.1); Sodium 141 mmol/L (135-145); Total Bilirubin 0.5 mg/dl (0.2-1.3); eGFR 30.28
[2024-04-06] MEDS: NOVOLOG FLEXPEN-LOW RESISTANCE SC (09:06)
--- NOTE | 2024-04-06 09:07 | W.PN.HOSP.TC ---
Today's Communication/Plan
-
see A/P
Assessment / Plan
Assessment / Plan
CT AP:
Interstitial fibrosis within the visualized lower lungs, stable from prior CT in 2019.
Distention of the rectum with stool with slight stranding of the perirectal fat and perirectal edema, findings compatible with stercoral colitis. No evidence for perforation.
External contour of the liver is somewhat nodular, raising the possibility of cirrhosis. No evidence for splenomegaly or ascites.
Numerous calcifications throughout the pancreas, similar to previous examination, compatible with chronic pancreatitis.
Quiroz catheter is present with balloon within the bladder lumen. Bladder is relatively collapsed with no gross abnormality.
Significant atherosclerotic disease with multiple vascular stents. Abdominal aortic aneurysm with maximum AP dimension of 3.2 cm measurements slightly larger than previous examination, previously having maximum AP dimension of 2.9 cm.
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
A/P:
# Hypotension, resolved
Did not require vasopressors and blood pressure improved
Patient possibly developed some vasovagal reaction post enema/complaining of significant rectal pain.
WAX CUTTER Bisoprolol on hold, WAX CUTTER Bumetanide on hold
Continue Midodrine with holding parameter for SBP > 120 mmHg
# Pauses on Telemetry less than 3 seconds
Asymptomatic
hold WAX CUTTER Bisoprolol
cardiology consulted
# Symptomatic anemia, likely secondary to GI blood loss
# GI bleed is related to/exacerbated by Xarelto
s/p 1 unit PRBC transfusion
Iron panel suggestive of iron deficiency, s/p 5-day course of IV iron
B12 WNL and folic acid elevated
GI on board, planning for EGD/C scope on 04/07 or 04/08
Holding WAX CUTTER Xarelto
Cont Protonix IV twice daily
cardiology consulted for clearance
# Rectal pain
# Constipation
rectal pain improved after large bowel movement
Stool impaction in the rectum, treated with Bowel regimen with Miralax daily
Continue PPI
Eventual colonoscopy consideration
GI on board
Cardiac clearance
# High TSH
TSH level 27.5
Check FT4
WAX CUTTER on Synthroid 250 mcg, increase to 275 mcg
Follow up repeat TSH FT4 in 4-6 weeks with PCP
# Chronic kidney disease
SCr 2.1 today, baseline around 2
# Chronic systolic heart failure EF around 41%, stable
# IDDM
continue Lantus 15 units HS, aspart 3 units BID
# A-fib
WAX CUTTER bisoprolol and Xarelto on hold
CODE STATUS full code
DVT Prophylaxis: SCDs.
Anticipated Discharge: > 48 hours
Subjective/Interval History
-
Date of Service: April 06, 2024
Objective Data
-
Labs:
Laboratory Results
04/06/24
07:41
WBC 6.0
Hgb 8.6 L
Hct 26.5 L
Plt Count 276
Sodium 141
Potassium 4.2
Chloride 108 H
Carbon Dioxide 21 L
BUN 18
Creatinine 2.1 H
Glucose 103 H
Calcium 9.0
Total Bilirubin 0.5
AST 42
ALT 28
Alkaline Phosphatase 87
Vital Signs:
Vital Signs
Temp Pulse Resp BP Pulse Ox
36.6 C 66 19 120/73 100
04/06/24 07:24 04/06/24 07:24 04/06/24 07:24 04/06/24 07:24 04/06/24 07:24
I&O
04/05/24 04/06/24 04/07/24
06:59 06:59 06:59
Intake Total 1250 / 1250 1045.5 / 1045.5
Balance 1250 / 1250 1045.5 / 1045.5
Review of Systems
-
All other systems: Reviewed and negative
Abdomen/GI: Denies Abdominal Pain
Physical Exam
-
General: Well Developed, Well Nourished, No Apparent Distress and Comfortable
HEENT: Normocephalic and Atraumatic
Respiratory: Clear to Auscultation and Non Labored Respirations; Negative Accessory Resp Muscle Use
Cardiac: Regular Rhythm and S1/S2
GI: Soft, Nontender and Nondistended
Neuro: Awake, Alert and Oriented
Psych: Calm and Intact Judgement/Insight
Data Reviewed
-
Labs: Labs Reviewed by me
[2024-04-06] MEDS: MIRALAX 17 GRAMS PO (09:09)
[2024-04-06] MEDS: PROTONIX 40 MG PO ×2 (09:10→20:13)
[2024-04-06] MEDS: THERAGRAN 1 TABLET PO (09:10)
[2024-04-06] MEDS: SENOKOT-S 2 TABLET PO (09:10)
[2024-04-06] MEDS: PROSCAR 5 MG PO (09:10)
[2024-04-06] MEDS: MEXITIL 150 MG PO ×3 (09:10→23:28)
[2024-04-06] MEDS: ProAmatine 5 MG PO (09:10)
[2024-04-06] MEDS: ASPIR LOW (ENTERIC COATED) 81 MG PO (09:10)
[2024-04-06] MEDS: FLOMAX 0.4 MG PO (09:10)
[2024-04-06 11:58] LABS: Glucose - Point of Care 254 mg/dl (70-99)
[2024-04-06 11:59] VITALS: BP 145/56
[2024-04-06] MEDS: NOVOLOG FLEXPEN-LOW RESISTANCE 3 UNITS SC (12:15)
[2024-04-06] MEDS: NOVOLOG FLEXPEN 3 UNITS SC ×2 (12:16→17:13)
[2024-04-06] MEDS: ProAmatine PO ×2 (12:17→17:12)
[2024-04-06 12:44] LABS: TSH Reflex To Free T4 3.28 uIU/ml (0.47-4.68)
--- NOTE | 2024-04-06 14:12 | CON.CAR ---
Consultation
Consultation Request
Date/Time Consultation Requested: 04/05/24
Date/Time Consultation Performed: 04/06/24
Requesting Provider: Srinath
Performing Provider: Pinky
Reason for Consultation: pre-op GI eval, bradycardia
Medical History
-
Chief Complaint: constipation
History of Present Illness:
84-year-old man with past medical history as below who presented initially on 03/29/2024 with concerns for weakness and constipation. He was found to have anemia with a hemoglobin of 6.8 and Hemoccult positive stool. Patient is planned for EGD and
colonoscopy on 04/07 and cardiology is asked to comment on patient's preoperative risk for this procedure as well as bradycardia.
Patient tells me that overall he feels well. Not having lightheadedness or dizziness. No chest pain or pressure. Breathing is comfortable, no shortness of breath at rest or dyspnea exertion. No lower extremity edema.
We reviewed his cardiac history, tells me he has 13 stents. Regularly follows with Dr. Carvalho at [facility] cardiology.
PMHx:
CAD
HFrEF (EF 40-45%)
A-fib and anticoagulated with Eliquis
Peripheral vascular disease
Hypertension
CKD
COPD
Insulin-dependent diabetes
BPH
Past Medical History
Past Medical History: Other (As above)
Past Surgical History: Other (As above)
Social History
Tobacco: Former Smoker
Alcohol: Occasional
Employment: Retired
Family History
Family History: Reviewed & Not Pertinent
Allergies / Home Medications
Allergy/AdvReac Type Severity Reaction Status Date / Time
SYDIN Inhibitors Allergy Unknown Verified 03/29/24 14:02
�Medication �Instructions �Recorded �Confirmed �Type
aspirin 81 mg tablet,delayed 81 mg PO DAILY Blood clot 08/09/23 03/29/24 Rx
release prevention/tx #30 tabs
finasteride 5 mg tablet 5 mg PO DAILY bph #30 tabs 08/09/23 03/29/24 Rx
multivitamin with folic acid 400 1 tab PO DAILY supplement #30 tabs 08/09/23 03/29/24 Rx
mcg tablet (Tab-A-Laurie)
furosemide 40 mg tablet 40 mg PO DAILY Fluid 09/04/23 03/29/24 Rx
retention/Swelling #0 tabs
rivaroxaban 15 mg tablet (Xarelto) 15 mg PO QPM Blood clot 09/04/23 03/29/24 Rx
prevention/tx #0 tabs
alfuzosin 10 mg tablet,extended 10 mg PO DAILY Urinary Issue 03/29/24 03/29/24 History
release 24 hr
ascorbic acid (vitamin C) 250 mg 250 mg PO DAILY Supplement 03/29/24 03/29/24 History
tablet (Vitamin C)
atorvastatin 40 mg tablet 40 mg PO QPM High cholesterol 03/29/24 03/29/24 History
bisoprolol fumarate 5 mg tablet 5 mg PO DAILY Heart 03/29/24 03/29/24 History
Disease/Condition
bumetanide 0.5 mg tablet 0.5 mg PO DAILY Fluid 03/29/24 03/29/24 History
Retention/Swelling
folic acid 1 mg tablet 2 mg PO DAILY Supplement 03/29/24 03/29/24 History
insulin glargine 100 unit/mL (3 15 unit SC HS Diabetes 03/29/24 03/29/24 History
mL) subcutaneous pen (Lantus
Solostar U-100 Insulin)
levothyroxine 200 mcg tablet 200 mcg PO DAILY@0700 Thyroid 03/29/24 03/29/24 History
levothyroxine 50 mcg tablet 50 mcg PO DAILY@0700 Thyroid 03/29/24 03/29/24 History
mexiletine 150 mg capsule 150 mg PO Q8H Arrhythmia 03/29/24 03/29/24 History
ondansetron HCl 4 mg tablet 4 mg PO Q12H NAUSEA 03/29/24 03/29/24 History
ferrous sulfate 325 mg (65 mg 325 mg PO Q OTHER DAY #14 tabs 04/02/24 Rx
iron) tablet
pantoprazole 40 mg tablet,delayed 40 mg PO BID #60 tabs 04/02/24 Rx
release
polyethylene glycol 3350 17 gram 17 g PO DAILY #30 ea 04/02/24 Rx
oral powder packet (HealthyLax)
Review of Systems
-
History Source: Patient
All other systems: Negative unless noted
Physical Exam
Vital Signs
Temp Pulse Resp BP Pulse Ox
98 F 74 18 145/56 99
04/06/24 11:59 04/06/24 11:59 04/06/24 11:59 04/06/24 11:59 04/06/24 11:59
Lab Results
04/06/24 07:41
04/06/24 07:41
Troponin I Cancelled 03/30/24 21:00
Physical Exam
General: Well Developed
HEENT: Normocephalic
Respiratory: Clear and Non Labored Respirations
Cardiac: S1/S2 and Regular Rhythm
GI: Soft
Musculoskeletal: No Edema
Skin: Warm and Dry
Neuro: Awake and Alert
Psych: Calm
Impression / Plan
-
PCP: Dr. Vallejo
Treatment Manager Dr. Moore at [facility]
Impression:
Acute on chronic HFrEF
Non-ND troponin elevation
Recent CVA
Paroxysmal atrial fibrillation noted on ECG in 07/2023
CKD 3b
CAD
s/p Roto KAREN LCX (4 x12 mm Promus) & LAD KAREN 06/2014 (3.5 x 12 mm Promus)
s/p LAD Roto KAREN� (3.5 x 15 mm Bruce KAREN) 01/20Ventricular bigeminy/PAT maintained on mexiletine
PVD
s/p iliac prosper stents 01/2007
s/p R&L EIA stents 2Renal artery stenosis
�s/p right renal artery stent 01/2007Carotid stenosis
s/p Rt CEA 08/2017Hypertension
Hyperlipidemia
Type 2 diabetes
Hypothyroidism
Bladder cancer
Cystoscopy, transurethral resection of bladder tumor, placement of 6 x 24 double-J stent, retrograde pyelogram 09/2018
Lexiscan nuclear stress test 01/22/2022: Normal perfusion, EF 52%
Carotid ultrasound 08/28/2022:�JEANNE 1 to 15% stenosis, LICA 50 to 79% stenosis
Echo 01/22/2022: EF 55 to 60%, mild MR, AV sclerosis
Echo 01/14/2023: EF 41%, global hypokinesis, moderate MR, moderate to severe TR, estimated PAP 48 mmHg
Plan:
-Cardiovascular risk stratification: Presenting with GI bleed and cardiology is asked to comment on patient's cardiovascular risk to proceed with EGD and colonoscopy, this is a very low risk procedure
Patient is currently asymptomatic from a cardiovascular perspective with no evidence of deep compensated heart failure, no uncontrolled arrhythmia and no active ACS
Not at prohibitive risk to proceed with EGD/Cscope
No further cardiac testing necessary at this time.
-Bradycardia: Telemetry reviewed, sinus rhythm with PACs, heart rates largely in the 50s and 60s, no significant pauses seen
Home beta-alex has been on hold
Would resume home bisoprolol at a lower dose, 2.5 mg daily and continue to monitor on telemetry
-CAD status post PCI: Not reporting any chest pain or pressure.
Given history of multiple stents would continue [id number] daily if possible
Cont high intensity statin
Dose reduced BB
-H/o AFib:
Chronically on Xarelto for cardioembolic prophylaxis
Okay to hold oral anticoagulation given GI bleed, would resume when safe from a GI standpoint
May be an appropriate candidate for Watchman in the future
Data Reviewed
-
EKG: Tracing Personally Visualized and interpreted
Radiology: Image Personally Visualized and interpreted
Medical Tests (Nuc Med, Echo etc): Report Reviewed by me
Labs: Labs Reviewed by me
Old Records: Reviewed
[2024-04-06 15:25] VITALS: BP 106/53
[2024-04-06 16:51] LABS: Glucose - Point of Care 186 mg/dl (70-99)
[2024-04-06] MEDS: NULYTELY SOLUTION 2 LITERS PO (17:12)
[2024-04-06] MEDS: NOVOLOG FLEXPEN-LOW RESISTANCE 1 UNITS SC (17:13)
[2024-04-06] MEDS: LIPITOR 40 MG PO (17:14)
[2024-04-06 19:34] VITALS: BP 174/66
[2024-04-06] MEDS: SENOKOT-S PO (20:13)
[2024-04-06 23:03] VITALS: BP 128/65
[2024-04-06 23:10] LABS: Glucose - Point of Care 84 mg/dl (70-99)
[2024-04-06] MEDS: LANTUS SC (23:26)
[2024-04-07] VITALS (10 sets, daily range): BP systolic 16–173; BP diastolic 55–79; BMI 26.0
[2024-04-07] MEDS: SYNTHROID 75 MCG PO (05:34)
[2024-04-07] MEDS: SYNTHROID 200 MCG PO (05:34)
[2024-04-07] MEDS: NULYTELY SOLUTION 2 LITERS PO (05:35)
[2024-04-07 06:25] LABS: Glucose - Point of Care 92 mg/dl (70-99)
[2024-04-07 08:04] LABS: Blood Urea Nitrogen 13 mg/dl (9-20); Calcium 9.5 mg/dl (8.4-10.2); Carbon Dioxide 24 mmol/L (22-30); Chloride 106 mmol/L (98-107); Estimated Creatinine Clearance 22 ml/min; Glucose 122 mg/dl (70-99); Magnesium 2.3 mg/dl (1.6-2.3); Potassium 4.6 mmol/L (3.5-5.1); Sodium 144 mmol/L (135-145); eGFR 30.28
[2024-04-07 08:36] LABS: Hematocrit 32.6 % (39.0-52.0); Hemoglobin 10.4 g/dL (13.0-18.0); Mean Corp Hgb Conc. 31.9 g/dL (33.0-37.0); Mean Corpuscular Hgb 31.1 pg (27.0-31.0); Mean Corpuscular Volume 97.6 fL (80.0-94.0); Mean Platelet Volume 9.6 fL (7.4-10.4); Platelet Count 384 10^3/uL (130-400); Red Blood Cell Count 3.34 10^6/uL (4.70-6.10); Red Cell Dist. Width 15.6 % (11.5-14.5); White Blood Cell Count 6.3 10^3/uL (4.8-10.8)
--- NOTE | 2024-04-07 09:11 | W.PN.HOSP.TC ---
Today's Communication/Plan
-
see A/P
Assessment / Plan
Assessment / Plan
CT AP:
Interstitial fibrosis within the visualized lower lungs, stable from prior CT in 2019.
Distention of the rectum with stool with slight stranding of the perirectal fat and perirectal edema, findings compatible with stercoral colitis. No evidence for perforation.
External contour of the liver is somewhat nodular, raising the possibility of cirrhosis. No evidence for splenomegaly or ascites.
Numerous calcifications throughout the pancreas, similar to previous examination, compatible with chronic pancreatitis.
Quiroz catheter is present with balloon within the bladder lumen. Bladder is relatively collapsed with no gross abnormality.
Significant atherosclerotic disease with multiple vascular stents. Abdominal aortic aneurysm with maximum AP dimension of 3.2 cm measurements slightly larger than previous examination, previously having maximum AP dimension of 2.9 cm.
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
A/P:
# Hypotension, resolved
Did not require vasopressors and blood pressure improved
Patient possibly developed some vasovagal reaction post enema/complaining of significant rectal pain.
[employer] Bisoprolol resumed at lower dose 2.5 mg daily
[employer] Bumex remain on hold
Continue Midodrine with holding parameter for SBP > 120 mmHg
# Pauses on Telemetry less than 3 seconds
Asymptomatic
[employer] Bisoprolol resumed at lower dose 2.5 mg daily
cardiology on board
# Symptomatic anemia, likely secondary to GI blood loss
# GI bleed is related to/exacerbated by Xarelto
s/p 1 unit PRBC transfusion
Iron panel suggestive of iron deficiency, s/p 5-day course of IV iron
B12 WNL and folic acid elevated
GI on board, planning for EGD/C scope on 04/07
Holding [employer] Xarelto
Cont Protonix IV twice daily
# Rectal pain
# Constipation
rectal pain improved after large bowel movement
Stool impaction treated with Bowel regimen with Miralax daily
Continue PPI
GI on board
# High TSH
TSH level 27.5, FT4 3.28
[employer] Synthroid 250 mcg, increased to 275 mcg
Follow up repeat TSH FT4 in 4-6 weeks with PCP
# Chronic kidney disease
SCr 2.1 today, baseline around 2
# Chronic systolic heart failure EF around 41%, stable
# IDDM
Lantus 15 units HS, aspart 3 units BID
# A-fib
resumed low dose bisoprolol
Xarelto on hold
CODE STATUS full code
DVT Prophylaxis: SCDs.
Anticipated Discharge: 24 - 48 hours
Subjective/Interval History
-
Date of Service: April 07, 2024
Objective Data
-
Labs:
Laboratory Results
04/07/24
06:55
WBC 6.3
Hgb 10.4 L D
Hct 32.6 L
Plt Count 384 D
Sodium 144
Potassium 4.6
Chloride 106
Carbon Dioxide 24
BUN 13
Creatinine 2.1 H
Glucose 122 H
Calcium 9.5
Vital Signs:
Vital Signs
Temp Pulse Resp BP Pulse Ox
36.4 C 68 18 128/60 99
04/07/24 07:40 04/07/24 07:40 04/07/24 07:40 04/07/24 07:40 04/07/24 07:40
I&O
04/06/24 04/07/24 04/08/24
06:59 06:59 06:59
Intake Total 1045.5 / 1045.5 2400 / 2400
Balance 1045.5 / 1045.5 2400 / 2400
Review of Systems
-
All other systems: Reviewed and negative
Abdomen/GI: Denies Abdominal Pain
Physical Exam
-
General: Well Developed, Well Nourished, No Apparent Distress and Comfortable
HEENT: Normocephalic and Atraumatic
Respiratory: Clear to Auscultation and Non Labored Respirations; Negative Accessory Resp Muscle Use
Cardiac: Regular Rhythm and S1/S2
GI: Soft, Nontender and Nondistended
Neuro: Awake, Alert and Oriented
Psych: Calm and Intact Judgement/Insight
Data Reviewed
-
Labs: Labs Reviewed by me
[2024-04-07] MEDS: PROTONIX 40 MG PO ×2 (09:53→20:46)
[2024-04-07] MEDS: FLOMAX 0.4 MG PO (09:53)
[2024-04-07] MEDS: NOVOLOG FLEXPEN-LOW RESISTANCE SC ×3 (09:53→17:33)
[2024-04-07] MEDS: ASPIR LOW (ENTERIC COATED) 81 MG PO (09:59)
[2024-04-07] MEDS: MIRALAX PO (09:59)
[2024-04-07] MEDS: PROSCAR 5 MG PO (10:00)
[2024-04-07] MEDS: ProAmatine PO ×3 (10:00→17:30)
[2024-04-07] MEDS: SENOKOT-S PO (10:01)
[2024-04-07] MEDS: MEXITIL 150 MG PO ×2 (10:01→17:29)
[2024-04-07] MEDS: THERAGRAN PO (10:02)
[2024-04-07] MEDS: ZEBETA 2.5 MG PO (10:02)
--- NOTE | 2024-04-07 10:31 | W.PN.CARDCBS ---
Addendum entered and electronically signed by Shruti Chau MD 04/07/24 14:18:
I saw and examined the patient.
The Slag Skimmer's note was reviewed and I agree with the note.
Comment: Awaiting GI procedure. Denies chest pain and palpitations. PAF currently off of oral anticoagulation. Resume when able.
No symptoms related to his bradycardia. If needed we could discontinue bisoprolol.
Laying flat in bed volume status clinically stable.
Original Note:
Today's Communication / Plan
-
Continue reduced dose of beta-alex
Xarelto remains on hold
GI evaluation ongoing for EGD/colonoscopy
Stable from cardiac standpoint to proceed with GI procedures
Impression / Plan
-
PCP: Dr. Vallejo
Red Hat Linux Engineer Dr. Moore at [facility]
Impression:
Acute on chronic HFrEF
Non-TX troponin elevation
Recent CVA
Paroxysmal atrial fibrillation noted on ECG in 07/2023
CKD 3b
CAD
s/p Roto KAREN LCX (4 x12 mm Promus) & LAD KAREN 06/2014 (3.5 x 12 mm Promus)
s/p LAD Roto KAREN� (3.5 x 15 mm [place] KAREN) 01/20Ventricular bigeminy/PAT maintained on mexiletine
PVD
s/p iliac prosper stents 01/2007
s/p R&L EIA stents 2Renal artery stenosis
�s/p right renal artery stent 01/2007Carotid stenosis
s/p Rt CEA 08/2017Hypertension
Hyperlipidemia
Type 2 diabetes
Hypothyroidism
Bladder cancer
Cystoscopy, transurethral resection of bladder tumor, placement of 6 x 24 double-J stent, retrograde pyelogram 09/2018
Lexiscan nuclear stress test 01/22/2022: Normal perfusion, EF 52%
Carotid ultrasound 08/28/2022:�JEANNE 1 to 15% stenosis, LICA 50 to 79% stenosis
Echo 01/22/2022: EF 55 to 60%, mild MR, AV sclerosis
Echo 01/14/2023: EF 41%, global hypokinesis, moderate MR, moderate to severe TR, estimated PAP 48 mmHg
Plan:
-Acute GIB
Transfused 1 unit RBC 03/29/24, hgb improved to 10.4, low was 6.8
Cardiovascular risk stratification: Presenting with GI bleed and cardiology is asked to comment on patient's cardiovascular risk to proceed with EGD and colonoscopy, this is a very low risk procedure
Patient is currently asymptomatic from a cardiovascular perspective with no evidence of deep compensated heart failure, no uncontrolled arrhythmia and no active ACS
Not at prohibitive risk to proceed with EGD/Colonoscopy
No further cardiac testing necessary at this time.
-Bradycardia: Telemetry reviewed, sinus rhythm with PACs with long first degree AVB, heart rates largely in the 60s, no significant pauses seen
Home beta-alex was held then resumed on lower dose at 2.5 mg daily and continue to monitor on telemetry
-CAD status post PCI: Not reporting any chest pain or pressure.
Given history of multiple stents would continue ASA 81mg daily if possible
Cont high intensity statin
Dose reduced BB
-H/o AFib:
Chronically on Xarelto for cardioembolic prophylaxis
Okay to hold oral anticoagulation given GI bleed, would resume when safe from a GI standpoint
May be an appropriate candidate for Watchman in the future; defer to primary outpt production boring machine operator
History of Present Illness 04/06/2024:
84-year-old man with past medical history as below who presented initially on 03/29/2024 with concerns for weakness and constipation. He was found to have anemia with a hemoglobin of 6.8 and Hemoccult positive stool. Patient is planned for EGD and
colonoscopy on 04/07 and cardiology is asked to comment on patient's preoperative risk for this procedure as well as bradycardia.
Patient tells me that overall he feels well. Not having lightheadedness or dizziness. No chest pain or pressure. Breathing is comfortable, no shortness of breath at rest or dyspnea exertion. No lower extremity edema.
We reviewed his cardiac history, tells me he has 13 stents. Regularly follows with Dr. Moore at [facility] cardiology.
Progress Note - Red Hat Linux Engineer
Subjective
Date of Service: April 07, 2024
Patient seen and evaluated. Patient lying comfortably in bed. Reports he slept well. Denies chest pain, shortness of breath, dizziness, lightheadedness, edema, orthopnea, PND.
Objective
Labs:
04/07/24 06:55
04/07/24 06:55
Labs
Hgb 10.4 g/dL (13.0-18.0) L D 04/07/24 06:55
Hct 32.6 % (39.0-52.0) L 04/07/24 06:55
Plt Count 384 10^3/uL (130-400) D 04/07/24 06:55
PT 16.1 Sec (11.4-14.6) H 03/31/24 05:08
INR 1.31 03/31/24 05:08
APTT 36.3 Sec (23.4-35.0) H 03/30/24 12:57
Sodium 144 mmol/L (135-145) 04/07/24 06:55
Potassium 4.6 mmol/L (3.5-5.1) 04/07/24 06:55
BUN 13 mg/dl (9-20) 04/07/24 06:55
Creatinine 2.1 mg/dL (0.7-1.3) H 04/07/24 06:55
Glucose 122 mg/dl (70-99) H 04/07/24 06:55
Vital Signs and I&O:
Vital Signs
Temp Pulse Resp BP Pulse Ox
97.5 F 68 18 128/60 99
04/07/24 07:40 04/07/24 07:40 04/07/24 07:40 04/07/24 07:40 04/07/24 07:40
Vital Signs
Temp Pulse Resp BP Pulse Ox
97.5 F 68 18 128/60 99
04/07/24 07:40 04/07/24 07:40 04/07/24 07:40 04/07/24 07:40 04/07/24 07:40
Intake & Output
04/05/24 04/06/24 04/07/24 04/08/24
06:59 06:59 06:59 06:59
Intake Total 1250 / 1250 1045.5 / 1045.5 2400 / 2400
Balance 1250 / 1250 1045.5 / 1045.5 2400 / 2400
Physical Exam
Physical Exam
GEN: No distress, awake, lying comfortably in bed
HEENT: supple, anicteric, mmm
LUNGS: CTA, no wheezes/rales, on room air
CV: Reg, S1/S2, 1/6 syst LSB, no gallop
ABD: soft, BS+, NT/ND
EXT: No edema, clubbing or cyanosis
NEURO: Gross non-focal
SKIN: No rash, warm, dry, pink
[2024-04-07 11:34] LABS: Glucose - Point of Care 100 mg/dl (70-99)
[2024-04-07] MEDS: NOVOLOG FLEXPEN SC ×2 (11:36→17:34)
--- NOTE | 2024-04-07 14:20 | CM ---
Chart reviewed and plan is to home with family and [facility] when stable.
Plan; Home with family and [facility].
--- NOTE | 2024-04-07 15:36 | W.PN.UPDATE ---
Update Note
Progress Note Update
EGD showed multiple linear erosions, erythema in duodenum. Bx'ed.
Colonoscopy normal except small polyps, hemorrhoids. No obvious bleeding lesions seen, although gastric erosions may have healed with multiple days of IV PPI.
Can restart xarelto tomorrow. Diet. F/u bx. GI s/o.
[2024-04-07 17:29] LABS: Glucose - Point of Care 90 mg/dl (70-99)
[2024-04-07] MEDS: LIPITOR 40 MG PO (17:30)
[2024-04-07] MEDS: SENOKOT-S 2 TABLET PO (20:46)
[2024-04-07 21:21] LABS: Glucose - Point of Care 282 mg/dl (70-99)
[2024-04-07] MEDS: LANTUS 0.15 UNITS SC (21:24)
[2024-04-08] MEDS: MEXITIL 150 MG PO ×2 (00:10→08:29)
[2024-04-08 03:42] VITALS: BP 119/63
[2024-04-08] MEDS: SYNTHROID 75 MCG PO (05:51)
[2024-04-08] MEDS: SYNTHROID 200 MCG PO (05:51)
[2024-04-08 06:00] VITALS: BMI 25.9
[2024-04-08 07:00] VITALS: BP 154/69
[2024-04-08 07:33] LABS: Glucose - Point of Care 145 mg/dl (70-99)
[2024-04-08 08:07] LABS: Hematocrit 27.9 % (39.0-52.0); Mean Corp Hgb Conc. 32.3 g/dL (33.0-37.0); Mean Corpuscular Hgb 31.7 pg (27.0-31.0); Mean Corpuscular Volume 98.2 fL (80.0-94.0); Red Blood Cell Count 2.84 10^6/uL (4.70-6.10); Red Cell Dist. Width 15.9 % (11.5-14.5); White Blood Cell Count 6.7 10^3/uL (4.8-10.8)
[2024-04-08] MEDS: NOVOLOG FLEXPEN-LOW RESISTANCE SC (08:16)
[2024-04-08] MEDS: FLOMAX 0.4 MG PO (08:27)
[2024-04-08] MEDS: ProAmatine PO (08:28)
[2024-04-08] MEDS: ZEBETA 2.5 MG PO (08:29)
[2024-04-08] MEDS: PROSCAR 5 MG PO (08:30)
[2024-04-08] MEDS: THERAGRAN 1 TABLET PO (08:30)
[2024-04-08] MEDS: PROTONIX 40 MG PO (08:31)
[2024-04-08] MEDS: ASPIR LOW (ENTERIC COATED) 81 MG PO (08:31)
[2024-04-08] MEDS: SENOKOT-S PO (08:41)
[2024-04-08] MEDS: MIRALAX PO (08:41)
[2024-04-08 08:42] LABS: Blood Urea Nitrogen 15 mg/dl (9-20); Calcium 8.8 mg/dl (8.4-10.2); Chloride 109 mmol/L (98-107); Estimated Creatinine Clearance 23 ml/min; Glucose 137 mg/dl (70-99); Magnesium 2.1 mg/dl (1.6-2.3); Potassium 4.4 mmol/L (3.5-5.1); Sodium 143 mmol/L (135-145)
[2024-04-08 09:00] LABS: Carbon Dioxide 22 mmol/L (22-30)
--- NOTE | 2024-04-08 09:32 | W.PN.HOSP.TC ---
Addendum entered and electronically signed by Dona Macias MD 04/08/24 13:22:
total DC time 40 min
Original Note:
Today's Communication/Plan
-
see A/P
DC today
Assessment / Plan
Assessment / Plan
CT AP:
Interstitial fibrosis within the visualized lower lungs, stable from prior CT in 2019.
Distention of the rectum with stool with slight stranding of the perirectal fat and perirectal edema, findings compatible with stercoral colitis. No evidence for perforation.
External contour of the liver is somewhat nodular, raising the possibility of cirrhosis. No evidence for splenomegaly or ascites.
Numerous calcifications throughout the pancreas, similar to previous examination, compatible with chronic pancreatitis.
Quiroz catheter is present with balloon within the bladder lumen. Bladder is relatively collapsed with no gross abnormality.
Significant atherosclerotic disease with multiple vascular stents. Abdominal aortic aneurysm with maximum AP dimension of 3.2 cm measurements slightly larger than previous examination, previously having maximum AP dimension of 2.9 cm.
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
A/P:
# Hypotension, resolved
Did not require vasopressors and blood pressure improved
Patient possibly developed some vasovagal reaction post enema/complaining of significant rectal pain.
EQUIPMENT VALIDATION SPECIALIST Bisoprolol resumed at lower dose 2.5 mg daily
EQUIPMENT VALIDATION SPECIALIST Bumex remain on hold, to resume upon discharge
Continue Midodrine with holding parameter for SBP > 120 mmHg
# Pauses on Telemetry less than 3 seconds
Asymptomatic
EQUIPMENT VALIDATION SPECIALIST Bisoprolol resumed at lower dose 2.5 mg daily
cardiology on board
# Symptomatic anemia, likely secondary to GI blood loss
# GI bleed is related to/exacerbated by Xarelto
s/p 1 unit PRBC transfusion
Iron panel suggestive of iron deficiency, s/p 5-day course of IV iron
B12 WNL and folic acid elevated
s/p EGD/C scope on 04/07, unrevealing. Follow path reports outpt with GI
OK resume EQUIPMENT VALIDATION SPECIALIST Xarelto
Cont EQUIPMENT VALIDATION SPECIALIST Protonix
# Rectal pain
# Constipation
rectal pain improved after large bowel movement
Stool impaction treated with Bowel regimen with Miralax daily
Continue PPI
GI on board
# High TSH
TSH level 27.5, FT4 3.28
EQUIPMENT VALIDATION SPECIALIST Synthroid 250 mcg, increased to 275 mcg
Follow up repeat TSH FT4 in 4-6 weeks with PCP
# Chronic kidney disease
SCr 2.1 today, baseline around 2
# Chronic systolic heart failure EF around 41%, stable
# IDDM
Lantus 15 units HS, aspart 3 units BID
# A-fib
resumed low dose bisoprolol
resume Xarelto
CODE STATUS full code
DVT Prophylaxis: Resume Xarelto
updated on the phone
Anticipated Discharge: Today
Subjective/Interval History
-
Date of Service: April 08, 2024
Objective Data
-
Labs:
Laboratory Results
04/08/24
06:48
WBC 6.7
Hgb 9.0 L
Hct 27.9 L
Plt Count
Sodium 143
Potassium 4.4
Chloride 109 H
Carbon Dioxide 22
BUN 15
Creatinine 2.0 H
Glucose 137 H
Calcium 8.8
Vital Signs:
Vital Signs
Temp Pulse Resp BP Pulse Ox
36.4 C 77 18 154/69 99
04/08/24 07:00 04/08/24 08:29 04/08/24 07:00 04/08/24 08:29 04/08/24 07:00
I&O
04/07/24 04/08/24 04/09/24
06:59 06:59 06:59
Intake Total 2400 / 2400 1320 / 1320
Output Total 300 / 300
Balance 2400 / 2400 1020 / 1020
Review of Systems
-
All other systems: Reviewed and negative
Abdomen/GI: Denies Abdominal Pain
Physical Exam
-
General: Well Developed, Well Nourished, No Apparent Distress and Comfortable
HEENT: Normocephalic and Atraumatic
Respiratory: Clear to Auscultation and Non Labored Respirations; Negative Accessory Resp Muscle Use
Cardiac: Regular Rhythm and S1/S2
GI: Soft, Nontender and Nondistended
Neuro: Awake, Alert and Oriented
Psych: Calm and Intact Judgement/Insight
Data Reviewed
-
Labs: Labs Reviewed by me
[2024-04-08 10:25] VITALS: BP 101/69; PULSE 78; O2SAT 100
--- NOTE | 2024-04-08 10:38 | CM ---
Plan is to home with [facility].
Plan; Home with [facility]
[2024-04-08 11:00] VITALS: BP 158/58
--- NOTE | 2024-04-08 12:15 | W.PN.CARDCBS ---
Addendum entered and electronically signed by Len Goncalves MD 04/08/24 12:59:
I saw and examined the patient.
The EYE TECHNICIAN or PA's note was reviewed and I agree with the note.
Comment: General: Well developed, well nourished in NAD.
Neck: Supple, no JVD, HJR, carotids +2 B/L, no bruits bilaterally.
Heart: Non displaced PMI, RRR, no murmurs, No S3, S4, no rubs.
Lungs: Scattered rhonchi
Extremities: No clubbing, cyanosis or edema bilaterally.
Neuro: Grossly nonfocal, awake, alert and oriented x3.
Xarelto to be resumed per GI. Stable cardiology status for discharge. Discussed with primary service
Original Note:
Today's Communication / Plan
-
Home with , will arrange cardiology f/u
Impression / Plan
-
PCP: Dr. Vallejo
Practicing Md Anesthesiologist Dr. Moore at [facility]
Impression:
Acute blood loss anemia on admission
Hypotension
Acute on chronic HFrEF
Elevated Troponin
Recent CVA
Paroxysmal atrial fibrillation noted on ECG in 07/2023
CKD 3b
CAD
s/p Roto KAREN LCX (4 x12 mm Promus) & LAD KAREN 06/2014 (3.5 x 12 mm Promus)
s/p LAD Roto KAREN� (3.5 x 15 mm [place] KAREN) 01/2018
Ventricular bigeminy/PAT maintained on mexiletine
PVD
s/p iliac B/L stents 01/2007
s/p R&L EIA stents 08/2021
Renal artery stenosis
s/p right renal artery stent 01/2007
Carotid stenosis
s/p Rt CEA 08/2017
Hypertension
Hyperlipidemia
Type 2 diabetes
Hypothyroidism
Bladder cancer
Cystoscopy, transurethral resection of bladder tumor, placement of 6 x 24 double-J stent, retrograde pyelogram 09/2018
Lexiscan nuclear stress test 01/22/2022: Normal perfusion, EF 52%
Carotid ultrasound 08/28/2022:�JEANNE 1 to 15% stenosis, LICA 50 to 79% stenosis
Echo 01/22/2022: EF 55 to 60%, mild MR, AV sclerosis
Echo 01/14/2023: EF 41%, global hypokinesis, moderate MR, moderate to severe TR, estimated PAP 48 mmHg
Plan:
-Patient with GIB on admission and received 1 unit PRBCs in transfusion. EGD showed multiple linear erosions and erythema in the duodenum. Colonoscopy showed hemorrhoids, but no obvious lesions. Patient allowed to resume usual dose Xarelto 15 mg
daily 04/08/24 evening.
-Patient was also taking aspirin 81 mg daily prior to admission for h/o CAD with stents, PAD with stents and previous renal artery stent
-Patient with bradycardia on tele, but he is asymptomatic and no pauses more than 3 seconds. Outpatient dose of bisoprolol lowered to 2.5 mg daily.
-Patient with a h/o paroxysmal Afib, but has been in SR this admission. Xarelto restarted as noted
-Consider evaluation for watchman if recurrent bleeding
History of Present Illness 04/06/2024:
84-year-old man with past medical history as below who presented initially on 03/29/2024 with concerns for weakness and constipation. He was found to have anemia with a hemoglobin of 6.8 and Hemoccult positive stool. Patient is planned for EGD and
colonoscopy on 04/07 and cardiology is asked to comment on patient's preoperative risk for this procedure as well as bradycardia.
Patient tells me that overall he feels well. Not having lightheadedness or dizziness. No chest pain or pressure. Breathing is comfortable, no shortness of breath at rest or dyspnea exertion. No lower extremity edema.
We reviewed his cardiac history, tells me he has 13 stents. Regularly follows with Dr. Moore at [facility] cardiology.
Progress Note - Practicing Md Anesthesiologist
Subjective
Date of Service: April 08, 2024
He says he is going home
Objective
Labs:
04/08/24 06:48
04/08/24 06:48
Labs
Hgb 9.0 g/dL (13.0-18.0) L 04/08/24 06:48
Hct 27.9 % (39.0-52.0) L 04/08/24 06:48
Plt Count 10^3/uL (130-400) 04/08/24 06:48
PT 16.1 Sec (11.4-14.6) H 03/31/24 05:08
INR 1.31 03/31/24 05:08
APTT 36.3 Sec (23.4-35.0) H 03/30/24 12:57
Sodium 143 mmol/L (135-145) 04/08/24 06:48
Potassium 4.4 mmol/L (3.5-5.1) 04/08/24 06:48
BUN 15 mg/dl (9-20) 04/08/24 06:48
Creatinine 2.0 mg/dL (0.7-1.3) H 04/08/24 06:48
Glucose 137 mg/dl (70-99) H 04/08/24 06:48
Vital Signs and I&O:
Vital Signs
Temp Pulse Resp BP Pulse Ox
98.1 F 64 18 158/58 100
04/08/24 11:00 04/08/24 11:00 04/08/24 11:00 04/08/24 11:00 04/08/24 11:00
Vital Signs
Temp Pulse Resp BP Pulse Ox
98.1 F 64 18 158/58 100
04/08/24 11:00 04/08/24 11:00 04/08/24 11:00 04/08/24 11:00 04/08/24 11:00
Intake & Output
04/06/24 04/07/24 04/08/24 04/09/24
06:59 06:59 06:59 06:59
Intake Total 1045.5 / 1045.5 2400 / 2400 1320 / 1320
Output Total 300 / 300
Balance 1045.5 / 1045.5 2400 / 2400 1020 / 1020
Physical Exam
Physical Exam
GEN: AAOx3
HEENT: mmm
LUNGS: No audible wheeze
CV: SR on tele
ABD: ND
EXT: No edema
NEURO: Gross non-focal
SKIN: No rash
--- NOTE | 2024-04-08 13:11 | W.DCSUMMARY ---
Discharge Summary
Discharge Data
Date of Admission: 03/29/24
Date of Discharge: 04/08/24
-
Pending Results: No
Hospital Course
Principal Diagnosis:
Rectal pain due to constipation (resolved).
Symptomatic anemia, but active GI bleed was ruled out.
Cardiac pauses less than 3 seconds.
High TSH likely subclinical hypothyroidism (TSH level 27.5, FT4 3.28).
Chronic Diagnoses:�
Chronic kidney disease stage 3
Chronic systolic heart failure, EF around 41%, stable
Insulin-dependent diabetes
Paroxysmal atrial fibrillation
Consultations:�
Cardiology
Gastroenterology
Procedures:�
Upper endoscopy and colonoscopy
Clinical course:�
This is a 84-year-old male, with past medical history as stated above, who presented with constipation.
Problem 1:
He was noted to have anemia, with hemoglobin as low as 6.8.
He received 1 unit PRBC transfusion and 5-day course of IV iron.
His hemoglobin improved, and it was at 9.0 on the day of discharge.
Due to the drop in hemoglobin, he underwent upper endoscopy and colonoscopy on 04/07/2020 for anemia workup, and both were unrevealing.
His EGD showed multiple linear erosions, erythema in duodenum. Bx'ed.
His Colonoscopy was normal except small polyps, hemorrhoids. No obvious bleeding lesions seen, although gastric erosions may have healed with multiple days of IV PPI.
He can follow-up the biopsy pathology results with his GI doctor outpatient.
He can resume prior to admission Xarelto per GI.
Problem 2:
Pauses on Telemetry less than 3 seconds.
This was asymptomatic.
His prior to admission Bisoprolol was decreased from 5 mg daily to 2.5 mg daily per cardiology.
Problem 3:
High TSH likely subclinical hypothyroidism (TSH level 27.5, FT4 3.28).
His prior to admission Synthroid was increased from 250 to 275 mcg.
He has been informed to follow-up repeat TSH reflex FT4 in 4 to 6 weeks with his PCP.
As for the rest of his medical problems, they were stable during his hospital stay.
Discharge Plan
-
Patient Disposition: Home with Home Care
Discharge Diagnosis/Procedures: Symptomatic anemia (however GIB was ruled out from EGD and C scope);
High TSH (TSH level 27.5, FT4 3.28)
Condition: Good
Diet: Low Fat, Low Cholesterol, Low Sodium, Diabetic, Carb Controlled and Restrict fluids to 64 oz
Activity: As tolerated
Driving Restrictions: No driving
Blood Work: Check CBC and CMP
Check TSH reflex FT4 in 4-6 weeks with your PCP/endo (Synthroid dose increased from 250 mcg to 275 mcg)
Specialty Instructions: Weigh Daily- Call MD for wt gain/loss 3 lbs overnight/5 lbs in 1 week
Referrals:
Deepak Castrejon MD [Active] - in less than 1 week (Hospital Follow-up)
Fernando Wiley MD [Family Provider] - in one day (Hospitalization follow-up. Needs medication review.)
Additional Discharge Medication Instructions: Your Synthroid dose was increased from 250 to 275 mcg daily.
Your Bisoprolol dose was decreased from 5 to 2.5 mg daily.
Check with your retail loan originator assistant if you need to resume Lasix (since you are already on Bumex)
Prescriptions:
New
ferrous sulfate 325 mg (65 mg iron) tablet
325 mg PO Q OTHER DAY Qty: 14 1RF
polyethylene glycol 3350 [HealthyLax] 17 gram Powder In Packet
17 g PO DAILY Qty: 30 1RF
pantoprazole 40 mg Tablet,Delayed Release (Dr/Ec)
40 mg PO BID Qty: 60 0RF
bisoprolol fumarate 5 mg Tablet
2.5 mg PO DAILY Qty: 30 0RF
levothyroxine 75 mcg Tablet
75 mcg PO DAILY@0600 Qty: 30 0RF
Continued
Xarelto 15 mg Tablet
15 mg PO QPM Qty: 0 0RF
ondansetron HCl 4 mg tablet
4 mg PO Q12H
ascorbic acid (vitamin C) [Vitamin C] 250 mg Tablet
250 mg PO DAILY
bumetanide 0.5 mg tablet
0.5 mg PO DAILY
folic acid 1 mg Tablet
2 mg PO DAILY
alfuzosin 10 mg tablet extended release 24 hr
10 mg PO DAILY
atorvastatin 40 mg tablet
40 mg PO QPM
mexiletine 150 mg capsule
150 mg PO Q8H
levothyroxine 200 mcg tablet
200 mcg PO DAILY@0700
Patient Comments:
03/29/2024: taken w/ 50mcg= 250mcg
insulin glargine [Lantus Solostar U-100 Insulin] 100 unit/mL (3 mL) insulin pen
15 unit SC HS
aspirin 81 mg Tablet,Delayed Release (Dr/Ec)
81 mg PO DAILY Qty: 30 0RF
finasteride 5 mg Tablet
5 mg PO DAILY Qty: 30 0RF
multivitamin with folic acid [Tab-A-Laurie] 400 mcg Tablet
1 tab PO DAILY Qty: 30 0RF
Held
furosemide 40 mg Tablet
40 mg PO DAILY Qty: 0 0RF
Hold Instructions: Resume on 04/15/24. until evaluated by your retail loan originator assistant
Discontinued
bisoprolol fumarate 5 mg tablet
5 mg PO DAILY
levothyroxine 50 mcg tablet
50 mcg PO DAILY@0700
Patient Comments:
03/29/2024: taken w/ 200mcg= 250mcg
Discharge Orders:
Discharge Patient (As Directed); Ordered 04/08/24
Ordered By: Dona Macias
Discharge Date and Time
Print Language: ARABIC
== END 2024-04-08 13:15 | disposition home health service (06) | DRG 811 ==
LOC: 4 WEST ACU 19:37
PROVIDERS: Hospitalist; Nurse Practitioner Adult Health; Nurse Practitioner Primary Care; Physician Assistant; ADMITTING PHYSICIAN Internal Medicine; ATTENDING PHYSICIAN Internal Medicine; CONSULT PHYSICIAN Internal Medicine; CONSULT PHYSICIAN Internal Medicine Cardiovascular Disease; CONSULT PHYSICIAN Internal Medicine Critical Care Medicine; CONSULT PHYSICIAN Internal Medicine Gastroenterology; CONSULT PHYSICIAN Physical Medicine & Rehabilitation; CONSULT PHYSICIAN Specialist; EMERGENCY PHYSICIAN Student in an Organized Health Care Education/Training Program; FAMILY PHYSICIAN Family Medicine
PROC: 30233N1 Transfusion of Nonautologous Red Blood Cells into Peripheral Vein, Percutaneous Approach (ICD-10-PCS; 2024-03-29)
PROC: 0DBK8ZZ Excision of Ascending Colon, Via Natural or Artificial Opening Endoscopic (ICD-10-PCS; 2024-04-07)
PROC: 0DB68ZX Excision of Stomach, Via Natural or Artificial Opening Endoscopic, Diagnostic (ICD-10-PCS; 2024-04-07)
PROC: 0DB98ZX Excision of Duodenum, Via Natural or Artificial Opening Endoscopic, Diagnostic (ICD-10-PCS; 2024-04-07)
DX: D62 Acute posthemorrhagic anemia (principal); I50.23 Acute on chronic systolic (congestive) heart failure; I13.0 Hypertensive heart and chronic kidney disease with heart failure and stage 1 through stage 4 chronic kidney disease, or unspecified chronic kidney disease; K86.1 Other chronic pancreatitis; N17.9 Acute kidney failure, unspecified; I69.354 Hemiplegia and hemiparesis following cerebral infarction affecting left non-dominant side; D68.32 Hemorrhagic disorder due to extrinsic circulating anticoagulants; K56.41 Fecal impaction; E11.22 Type 2 diabetes mellitus with diabetic chronic kidney disease; K74.60 Unspecified cirrhosis of liver; E11.51 Type 2 diabetes mellitus with diabetic peripheral angiopathy without gangrene; E03.8 Other specified hypothyroidism; N18.32 Chronic kidney disease, stage 3b; I71.40 Abdominal aortic aneurysm, without rupture, unspecified; J44.9 Chronic obstructive pulmonary disease, unspecified; I08.1 Rheumatic disorders of both mitral and tricuspid valves; I77.1 Stricture of artery; D50.9 Iron deficiency anemia, unspecified; I95.9 Hypotension, unspecified; J84.10 Pulmonary fibrosis, unspecified; E11.9 Type 2 diabetes mellitus without complications; I48.0 Paroxysmal atrial fibrillation; I25.10 Atherosclerotic heart disease of native coronary artery without angina pectoris; Z95.5 Presence of coronary angioplasty implant and graft; E78.00 Pure hypercholesterolemia, unspecified; E86.9 Volume depletion, unspecified; K31.89 Other diseases of stomach and duodenum; K52.89 Other specified noninfective gastroenteritis and colitis; K64.0 First degree hemorrhoids; N40.1 Benign prostatic hyperplasia with lower urinary tract symptoms; R33.8 Other retention of urine; D12.2 Benign neoplasm of ascending colon; R53.81 Other malaise; R19.5 Other fecal abnormalities; R00.1 Bradycardia, unspecified; T45.515A Adverse effect of anticoagulants, initial encounter; Z79.01 Long term (current) use of anticoagulants; Z79.4 Long term (current) use of insulin; Z79.82 Long term (current) use of aspirin; Z79.899 Other long term (current) drug therapy; Z87.891 Personal history of nicotine dependence; Z87.39 Personal history of other diseases of the musculoskeletal system and connective tissue; Z96.612 Presence of left artificial shoulder joint; Z85.51 Personal history of malignant neoplasm of bladder
CPT/HCPCS: 88305; 71045; 74018; 74177; 80048; 80053; 81003; 82607; 82728; 82746; 82962; 83036; 83540; 83550; 83605; 83690; 83735; 84443; 84484; 85014; 85018; 85025; 85027; 85610; 85730; 86850; 86900; 86901; 86920; 88342; 93005; 93306; 97116; 97162; 97166; 97530; 99285; J2916; P9016; Q9967